=== PATIENT | female | born 1965 | race Caucasian/White ===

== ENCOUNTER → 2017-02-26 | Outpatient (CLI) | payer OTHER ==
[2015-04-02 15:24] VITALS: BP 110/69
--- NOTE | 2017-02-26 15:28 | RAD ---
Chest x-ray Indication: COPD, cough, shortness of breath and chest tightness Technique: PA and lateral views of the chest Comparison: Study from 04/02/2015 Findings: Heart is normal in size. No pericardial or pleural effusion. Lungs are clear. No pneumothorax or pleural effusion. Visualized bony thorax is within normal limits. Impression: No acute cardiopulmonary process.
== END | disposition home or self-care (01) ==
LOC: RAD 14:50
PROVIDERS: ATTEND Physician Assistant
DX: J44.9 Chronic obstructive pulmonary disease, unspecified (principal); J98.4 Other disorders of lung; R06.02 Shortness of breath; R07.89 Other chest pain
CPT/HCPCS: 71020

== ENCOUNTER 2018-04-15 17:57 | Inpatient (IN) | payer OTHER ==
[~2018-04-15] VITALS: Ht 157.5 cm; Wt 87.5 kg
[2018-04-15 18:35] VITALS: BP 122/83
--- NOTE | 2018-04-15 19:14 | HP ---
ADMIT DATE: 04/15/2018 CHIEF COMPLAINT: Abdominal pain and diffuse aching pain. HISTORY OF PRESENT ILLNESS: A 53-year-old white female, has a history of social and panic anxiety disorder and was in [facility] a month ago for abdominal pain. She had an EGD, which showed H. pylori and has been treated with pantoprazole, amoxicillin and Biaxin without any benefit. She was seen by me in the office about 2 weeks ago. A gallbladder sonogram was done, which was unremarkable. She has had increasing abdominal pain and diffuse aching pain in the upper body and trunk of an unknown etiology over many months. Because of her increasingly severe symptoms and uncertain diagnosis, she was admitted for further evaluation. CURRENT MEDICATIONS: Citalopram, lorazepam and pantoprazole with Advair and DuoNeb for COPD symptoms. PAST SURGICAL HISTORY: She has had a radical left nephrectomy for renal cell cancer 2 years ago with cure. No other surgeries known. ALLERGIES: SHE HAS NO KNOWN DRUG ALLERGIES EXCEPT ONE INTOLERANCE TO LYRICA THAT WAS TRIED ONCE IN THE PAST. SOCIAL HISTORY: She is a pack a day smoker, has smoked for most of her adult life. She is a nondrinker. She is . She is not employed. FAMILY HISTORY: Unremarkable. REVIEW OF SYSTEMS: No other specific complaints. OBJECTIVE: ENT: All within normal limits. NECK: No masses, nodes or thyroid enlargement. LUNGS: Coarse inspiratory crackles and expiratory wheezing. No tachypnea. CARDIOVASCULAR: Regular rate. No tachycardia or murmur. ABDOMEN: Soft, benign. Mildly tender in the right upper quadrant. EXTREMITIES: She is diffusely tender over upper extremities, mainly the proximal muscles, but no specific joint abnormalities or skin lesions are noted. NEUROLOGIC: Nonfocal, oriented x 4. Cerebellar reflexes and sensorimotor intact. GENITOURINARY: Deferred. RECTAL: Deferred. ASSESSMENT: 1. Chronic recurrent abdominal pain. She has been treated for H. pylori without clinical benefit. Gallbladder sonogram normal. 2. Diffuse myalgias and arthralgias, etiology unclear. Possibilities include severe fibromyalgia, even polymyalgia rheumatica, which would be unusual at her age, but high sed rate is the only abnormal lab. ALDEN, RA, CPK all negative. 3. Chronic panic disorder and social phobia. 4. Chronic obstructive pulmonary disease with chronic tobacco abuse. PLAN: Labs as ordered, hepatobiliary scan next. Repeat sed rate and CRP. Consider a trial of low dose prednisone to see if it clinically benefits her as it would with PMR, but hesitate to add steroids in this patient. Also, consider use of gabapentin and Cymbalta, but will assess clinically and labs first. JACKI RAMON MD DR: NAHUN/maame JOB#: [id number] / [id number]
[2018-04-15 19:49] LABS: BASO # 0.1 x10^3/uL (0.0-0.2); BASO % 1 % (0-3); EOS # 0.1 x10^3/uL (0.0-0.7); EOS % 1 % (0-3); HEMATOCRIT 47.2 % (36.0-47.0); HEMOGLOBIN 16.9 g/dL (12.0-15.5); LYMPH # 1.7 x10^3/uL (1.0-4.8); LYMPH % 16 % (24-48); MEAN CORPUSCULAR HEMOGLOBIN 32 pg (25-35); MEAN CORPUSCULAR HGB CONC 36 g/dL (31-37); MEAN CORPUSCULAR VOLUME 90 fL (79-100); MONO # 0.6 x10^3/uL (0.0-1.1); MONO % 5 % (0-9); NEUT # 8.1 x10^3uL (1.8-7.7); NEUT % 77 % (31-73); PLATELET COUNT 284 x10^3/uL (140-400); RED BLOOD COUNT 5.27 x10^6/uL (3.50-5.40); RED CELL DISTRIBUTION WIDTH 14.1 % (11.5-14.5); WHITE BLOOD COUNT 10.5 x10^3/uL (4.0-11.0)
[2018-04-15] MEDS: BUDESONIDE 0.5 MG/2 ML NEBU. NEB SCH (19:49)
[2018-04-15] MEDS: IPRATRPIUM/ALBUTEROL 0.5/2.5MG 3 ML NEBU. NEB SCH (19:49)
[2018-04-15 20:05] LABS: ALBUMIN 3.6 g/dL (3.4-5.0); ALBUMIN/GLOBULIN RATIO 0.7 (1.0-1.7); C-REACTIVE PROTEIN 35.1 mg/L (0-3.3); CALCIUM 9.7 mg/dL (8.5-10.1); CREATININE 0.8 mg/dL (0.6-1.0); POTASSIUM 4.1 mmol/L (3.5-5.1); TOTAL BILIRUBIN 0.3 mg/dL (0.2-1.0); TOTAL PROTEIN 8.5 g/dL (6.4-8.2)
--- NOTE | 2018-04-15 20:12 | NUR ---
Pt.came around 1800 as a direct admit. She is A/O x4 and will make needs known. Family @ [facility]
[2018-04-15] MEDS ORDERED: GABAPENTIN 100 MG CAPSULE. PO PRN (20:15)
[2018-04-15] MEDS: LORazepam 1 MG TABLET PO SCH (21:17)
[2018-04-15] MEDS: NICOTINE 21MG PATCH. TD SCH (21:17)
[2018-04-15] MEDS: IV DEXTROSE 5%-LACT RINGERS 1,000 ML IV SCH (21:20)
[2018-04-15 23:30] VITALS: BP 121/77
[2018-04-16 03:21] VITALS: BP 102/51
[2018-04-16] MEDS: HYDROcodone/APAP 5/325MG 1 TAB TABLET PO PRN ×3 (04:13→20:06)
[2018-04-16] MEDS: IV DEXTROSE 5%-LACT RINGERS 1,000 ML IV SCH ×2 (04:18→20:05)
[2018-04-16 07:00] VITALS: BP 106/70
[2018-04-16] MEDS: IPRATRPIUM/ALBUTEROL 0.5/2.5MG 3 ML NEBU. NEB SCH ×4 (07:32→19:24)
[2018-04-16] MEDS: BUDESONIDE 0.5 MG/2 ML NEBU. NEB SCH ×2 (07:32→19:24)
[2018-04-16 07:35] LABS: BILIRUBIN,URINE NEGATIVE (NEG); CLARITY,URINE CLEAR; COLOR,URINE YELLOW; NITRITE,URINE NEGATIVE (NEG); PROTEIN,URINE 30 mg/dL (NEG-TRACE); UROBILINOGEN,URINE 0.2 mg/dL (0.2 mg/dL)
[2018-04-16 07:39] LABS: SQUAMOUS EPITHELIAL CELL,UR MOD /LPF
--- NOTE | 2018-04-16 07:45 | RAD ---
Chest, 2 views, 04/15/2018: HISTORY: Sore throat and cough Comparison is made to a study from 02/26/2017. The heart size and pulmonary vascularity are normal. No pulmonary infiltrate is seen. There is no evidence of pleural fluid. IMPRESSION: No acute cardiopulmonary abnormality is detected. Electronically signed by: Kentrell Foreman MD (04/16/2018 7:40 AM) [facility]
[2018-04-16 07:46] LABS: AMORPHOUS SEDIMENT,UR PRESENT /HPF; BACTERIA,URINE FEW /HPF (0-FEW)
[2018-04-16] MEDS ORDERED: NORMAL SALINE IV ONE (08:30)
[2018-04-16] MEDS ORDERED: SINCALIDE IV ONE (08:30)
--- NOTE | 2018-04-16 08:30 | PDOC ---
Provider Note Provider Note OUT OF ROOM FOR HB SCAN- LABS SHOW HIGH ESR/CRP, ELEVATED GLOBULIN- PRIOR ALDEN/ TSH/CK ALL NORMAL- CXR CLEAR - POSSIBILITIES INCLUDE FIBROMYALGIA, BUT HIGH SED RATE RAISE ? OF PMR, MM, OTHERS- WILL GIVE TRIAL OF LOW DOSE PREDNIISONE, TRY ASHISH, MORE LABS , supportive care , norco re pain,cough- consider bone scan re prior renal cell CA that was resected at [facility], current scan may delay that idea- JACKI RAMON MD Apr 16, 2018 08:30
[2018-04-16] MEDS ORDERED: NICOTINE 21MG PATCH. TD SCH (09:00)
[2018-04-16] MEDS ORDERED: GABAPENTIN 300 MG CAPSULE. PO PRN (09:00)
[2018-04-16] MEDS: LORazepam 1 MG TABLET PO SCH ×3 (09:43→20:06)
[2018-04-16] MEDS: NICOTINE 21MG PATCH. TD SCH (09:43)
[2018-04-16] MEDS: CITALOPRAM 20 MG TABLET. PO SCH (09:43)
[2018-04-16] MEDS: PANTOPRAZOLE 40 MG TABLET.DR. PO SCH (09:43)
[2018-04-16] MEDS: predniSONE 20 MG TABLET PO SCH (09:45)
--- NOTE | 2018-04-16 10:30 | RAD ---
Hepatobiliary scan with gallbladder ejection fraction calculation 04/16/2018 Clinical History: Right upper quadrant abdominal pain. Technique: After the intravenous administration of 5.4 mCi of technetium 99m Choletec, imaging of the right upper quadrant of the abdomen was performed using the gamma camera for 60 minutes. 1.76 mcg of CCK was infused intravenously and continued imaging of the right upper quadrant of the abdomen was performed for 30 minutes. A gallbladder ejection fraction was calculated. Findings: Normal perfusion, uptake and excretion of the radionuclide by the liver is seen. There is no evidence of cystic or common bile duct obstruction. The gallbladder is within normal limits in position and configuration. During the infusion of CCK minimal emptying of the gallbladder is seen on the static images. The gallbladder ejection fraction is 6% which is markedly diminished. These findings are consistent with biliary dyskinesia. IMPRESSION: Findings consistent with biliary dyskinesia. Electronically signed by: Reese Simmons MD (04/16/2018 10:26 AM) [id number]
[2018-04-16 11:00] VITALS: BP 124/81
[2018-04-16 15:00] VITALS: BP 132/77
--- NOTE | 2018-04-16 15:37 | NUR ---
SW following for discharge planning. Discussed with RN, RN advised pt is from home alone and does fine at home. RN advised no SW needs at this time. SW will continue to follow.
[2018-04-16 19:00] VITALS: BP 107/63
[2018-04-16 23:00] VITALS: BP 99/46
[2018-04-17] VITALS (7 sets, daily range): BP systolic 116–157; BP diastolic 51–82
[2018-04-17] MEDS: IV DEXTROSE 5%-LACT RINGERS 1,000 ML IV SCH ×3 (00:45→20:04)
[2018-04-17] MEDS: IPRATRPIUM/ALBUTEROL 0.5/2.5MG 3 ML NEBU. NEB SCH ×4 (07:35→20:48)
[2018-04-17] MEDS: BUDESONIDE 0.5 MG/2 ML NEBU. NEB SCH ×2 (07:36→20:48)
[2018-04-17] MEDS: PANTOPRAZOLE 40 MG TABLET.DR. PO SCH (08:04)
[2018-04-17] MEDS: CITALOPRAM 20 MG TABLET. PO SCH (08:04)
[2018-04-17] MEDS: LORazepam 1 MG TABLET PO SCH ×3 (08:04→20:04)
[2018-04-17] MEDS: HYDROcodone/APAP 5/325MG 1 TAB TABLET PO PRN ×3 (08:04→20:05)
[2018-04-17] MEDS: predniSONE 20 MG TABLET PO SCH (08:04)
[2018-04-17] MEDS: NICOTINE 21MG PATCH. TD SCH (08:05)
--- NOTE | 2018-04-17 08:54 | PDOC ---
Provider Note Provider Note vss, no temp- feels same, no new sxs- hb scan shows poor EF so surg consult re anthony- RA, florentino, ck wnl- d/w her ? of PMR but unusual at her age- trial of low dose pred in progress- will add levoflox re cough/wheeze to duoneb/pulmicort in advance of surgery- JACKI RAMON MD Apr 17, 2018 08:54
--- NOTE | 2018-04-17 10:43 | PDOC2 ---
CONSULT Date of Consult Date of Consult DATE: 04/17/18 TIME: 10:35 Reason for Consult Reason for Consult: Biliary dyskinesia Referring Physician Referring Physician: Lg Identification/Chief Complaint Chief Complaint RUQ pain Source Source: Chart review, Patient History of Present Illness Reason for Visit: 53 yo F with c/o RUQ pain radiating to Right shoulder. Recently admitted to and treated for H. pylori, without significant improvement. She presents with diffuse body aches in addition to the RUQ pain. Notes pain is worse after eating. She is being worked up for elevated CRP. Past Medical History Pulmonary: COPD Rheumatologic: Other Past Surgical History Past Surgical History: Other (left nephrectomy for cancer) Family History Family History: No Significant Social History 1 pack per day ALCOHOL: social Current Medications Current Medications Current Medications Dextrose/Lactated Ringer's 1,000 ml @ 100 mls/hr Q10H IV Last administered on 04/17/18at 08:05; Start 04/15/18 at 18:45 Citalopram Hydrobromide (CeleXA) 20 mg DAILY PO Last administered on 04/17/18at 08:04; Start 04/16/18 at 09:00 Lorazepam (Ativan) 1 mg BID92 PO Last administered on 04/17/18at 08:04; Start at 09:00 Lorazepam (Ativan) 2 mg HS PO Last administered on 04/16/18at 20:06; Start 04/15 at 21:00 Pantoprazole Sodium (Protonix) 40 mg DAILYAC PO Last administered on 04/17/18at 08:04; Start 04/16/18 at 07:30 Nicotine (Nicoderm Cq 21mg) 1 patch DAILY TD ; Start 04/16/18 at 09:00; Stop at 09:00; Status DC Budesonide (Pulmicort) 0.5 mg RTBID NEB Last administered on 04/17/18at 07:36; Start 04/15/18 at 20:00 Albuterol/ Ipratropium (Duoneb) 3 ml RTQID NEB Last administered on 04/17/18at 07:35; Start 04/15/18 at 20:00 Gabapentin (Neurontin) 200 mg PRN Q8HRS PRN PO PAIN Last administered on at 21:17; Start 04/15/18 at 20:15; Stop 04/16/18 at 08:27; Status DC Nicotine (Nicoderm Cq 21mg) 1 patch DAILY TD Last administered on 04/17/18at 08: 05; Start 04/15/18 at 20:30 Acetaminophen/ Hydrocodone Bitart (Lortab 5/325) 1 tab PRN QID PRN PO PAIN Last administered on 04/17/18at 08:04; Start 04/16/18 at 04:00 Sincalide 1.76 mcg/Sodium Chloride 30 ml @ 120 mls/hr 1X ONCE IV Last administered on 04/16/18at 09:30; Start 04/16/18 at 08:30; Stop 04/16/18 at 08:44 ; Status DC Gabapentin (Neurontin) 300 mg PRN Q8HRS PRN PO FOR PERIPHERAL PAIN; Start 04/16 at 09:00 Prednisone (Prednisone) 20 mg DAILY PO Last administered on 04/17/18at 08:04; Start 04/16/18 at 09:00 Levofloxacin (Levaquin) 500 mg DAILY06 PO Last administered on 04/17/18at 10:35 ; Start 04/17/18 at 10:00 Allergies Allergies: Coded Allergies: No Known Drug Allergies (Unverified , 04/02/15) ROS General: YES: Appetite PSYCHOLOGICAL ROS: YES: Anxiety Respiratory: YES: SOB with excertion Gastrointestinal: Yes Abdominal Pain Musculoskeletal: Yes Pain In: (diffusely) Physical Exam General: Alert, Oriented X3, Cooperative, mild distress, Other (obese) HEENT: Atraumatic, EOMI Lungs: Normal air movement Abdomen: Soft, Other (TTP RUQ) Extremities: No clubbing, No cyanosis Skin: No rashes, No breakdown Neuro: Normal speech, Sensation intact Psych/Mental Status: Mental status NL, Mood NL Vitals VITALS Vital Signs Date Time Temp Pulse Resp B/P (MAP) Pulse Ox O2 Delivery O2 Flow Rate FiO2 04/17/18 08:04 Room Air 04/17/18 07:37 96 04/17/18 03:00 97.5 91 119/67 (84) 97.5 04/16/18 23:00 18 Labs Labs Laboratory Tests Test 04/15/18 19:40 04/15/18 21:19 04/16/18 10:15 White Blood Count 10.5 x10^3/uL (4.0-11.0) Red Blood Count 5.27 x10^6/uL (3.50-5.40) Hemoglobin 16.9 g/dL (12.0-15.5) Hematocrit 47.2 % (36.0-47.0) Mean Corpuscular Volume 90 fL (79-100) Mean Corpuscular Hemoglobin 32 pg (25-35) Mean Corpuscular Hemoglobin Concent 36 g/dL (31-37) Red Cell Distribution Width 14.1 % (11.5-14.5) Platelet Count 284 x10^3/uL (140-400) Neutrophils (%) (Auto) 77 % (31-73) Lymphocytes (%) (Auto) 16 % (24-48) Monocytes (%) (Auto) 5 % (0-9) Eosinophils (%) (Auto) 1 % (0-3) Basophils (%) (Auto) 1 % (0-3) Neutrophils # (Auto) 8.1 x10^3uL (1.8-7.7) Lymphocytes # (Auto) 1.7 x10^3/uL (1.0-4.8) Monocytes # (Auto) 0.6 x10^3/uL (0.0-1.1) Eosinophils # (Auto) 0.1 x10^3/uL (0.0-0.7) Basophils # (Auto) 0.1 x10^3/uL (0.0-0.2) Erythrocyte Sedimentation Rate 75 (0-25) Sodium Level 139 mmol/L (136-145) Potassium Level 4.1 mmol/L (3.5-5.1) Chloride Level 100 mmol/L (98-107) Carbon Dioxide Level 28 mmol/L (21-32) Anion Gap 11 (6-14) Blood Urea Nitrogen 8 mg/dL (7-20) Creatinine 0.8 mg/dL (0.6-1.0) Estimated GFR (Cockcroft-Gault) 75.0 BUN/Creatinine Ratio 10 (6-20) Glucose Level 96 mg/dL (70-99) Calcium Level 9.7 mg/dL (8.5-10.1) Total Bilirubin 0.3 mg/dL (0.2-1.0) Aspartate Amino Transf (AST/SGOT) 30 U/L (15-37) Alanine Aminotransferase (ALT/SGPT) 41 U/L (14-59) Alkaline Phosphatase 116 U/L (46-116) C-Reactive Protein, Quantitative 35.1 mg/L (0-3.3) Total Protein 8.5 g/dL (6.4-8.2) Albumin 3.6 g/dL (3.4-5.0) Albumin/Globulin Ratio 0.7 (1.0-1.7) Urine Collection Type Unknown Urine Color Yellow Urine Clarity Clear Urine pH 6.0 Urine Specific [place] 1.020 Urine Protein 30 mg/dL (NEG-TRACE) Urine Glucose (UA) Negative mg/dL (NEG) Urine Ketones (Stick) Negative mg/dL (NEG) Urine Blood Moderate (NEG) Urine Nitrite Negative (NEG) Urine Bilirubin Negative (NEG) Urine Urobilinogen Dipstick 0.2 mg/dL (0.2 mg/dL) Urine Leukocyte Esterase Negative (NEG) Urine RBC 3-5 /HPF (0-2) Urine WBC 1-4 /HPF (0-4) Urine Squamous Epithelial Cells Mod /LPF Urine Amorphous Sediment Present /HPF Urine Bacteria Few /HPF (0-FEW) Uric Acid 5.5 mg/dL (2.6-6.0) Creatine Kinase 96 U/L (26-192) Rheumatoid Factor 10.8 IU/mL (0.0-13.9) Images Images US reportedly normal, she reports imaging at demonstrated benign liver tumors , PIPPDA with ejection fraction of 6% Assessment/Plan Assessment/Plan Biliary dyskinesia her symptoms are c/w her PIPPDA scan. will check US to evaluate liver tumors. agree with w/u and treatment of elevated CRP agree with maximizing pulm status (smoking cessation and weight loss encouraged) pulm consult for preop evaluation plan laparoscopic cholecystectomy with cholangiogram pending maximization. Thanks for consult! OWEN MESA MD Apr 17, 2018 10:43
--- NOTE | 2018-04-17 11:46 | NUR ---
SW following for discharge planning. Discussed with RN, RN advised no SW needs at this time. SW will continue to follow.
--- NOTE | 2018-04-17 12:31 | PDOC ---
PULMONARY PROGRESS NOTES Vitals Vital Signs Date Time Temp Pulse Resp B/P (MAP) Pulse Ox O2 Delivery O2 Flow Rate FiO2 04/17/18 11:15 Room Air 04/17/18 11:00 97.3 93 18 122/68 (86) 95 97.3 Labs Laboratory Tests Test 04/15/18 19:40 04/15/18 21:19 04/16/18 10:15 White Blood Count 10.5 x10^3/uL (4.0-11.0) Red Blood Count 5.27 x10^6/uL (3.50-5.40) Hemoglobin 16.9 g/dL (12.0-15.5) Hematocrit 47.2 % (36.0-47.0) Mean Corpuscular Volume 90 fL (79-100) Mean Corpuscular Hemoglobin 32 pg (25-35) Mean Corpuscular Hemoglobin Concent 36 g/dL (31-37) Red Cell Distribution Width 14.1 % (11.5-14.5) Platelet Count 284 x10^3/uL (140-400) Neutrophils (%) (Auto) 77 % (31-73) Lymphocytes (%) (Auto) 16 % (24-48) Monocytes (%) (Auto) 5 % (0-9) Eosinophils (%) (Auto) 1 % (0-3) Basophils (%) (Auto) 1 % (0-3) Neutrophils # (Auto) 8.1 x10^3uL (1.8-7.7) Lymphocytes # (Auto) 1.7 x10^3/uL (1.0-4.8) Monocytes # (Auto) 0.6 x10^3/uL (0.0-1.1) Eosinophils # (Auto) 0.1 x10^3/uL (0.0-0.7) Basophils # (Auto) 0.1 x10^3/uL (0.0-0.2) Erythrocyte Sedimentation Rate 75 (0-25) Sodium Level 139 mmol/L (136-145) Potassium Level 4.1 mmol/L (3.5-5.1) Chloride Level 100 mmol/L (98-107) Carbon Dioxide Level 28 mmol/L (21-32) Anion Gap 11 (6-14) Blood Urea Nitrogen 8 mg/dL (7-20) Creatinine 0.8 mg/dL (0.6-1.0) Estimated GFR (Cockcroft-Gault) 75.0 BUN/Creatinine Ratio 10 (6-20) Glucose Level 96 mg/dL (70-99) Calcium Level 9.7 mg/dL (8.5-10.1) Total Bilirubin 0.3 mg/dL (0.2-1.0) Aspartate Amino Transf (AST/SGOT) 30 U/L (15-37) Alanine Aminotransferase (ALT/SGPT) 41 U/L (14-59) Alkaline Phosphatase 116 U/L (46-116) C-Reactive Protein, Quantitative 35.1 mg/L (0-3.3) Total Protein 8.5 g/dL (6.4-8.2) Albumin 3.6 g/dL (3.4-5.0) Albumin/Globulin Ratio 0.7 (1.0-1.7) Urine Collection Type Unknown Urine Color Yellow Urine Clarity Clear Urine pH 6.0 Urine Specific [place] 1.020 Urine Protein 30 mg/dL (NEG-TRACE) Urine Glucose (UA) Negative mg/dL (NEG) Urine Ketones (Stick) Negative mg/dL (NEG) Urine Blood Moderate (NEG) Urine Nitrite Negative (NEG) Urine Bilirubin Negative (NEG) Urine Urobilinogen Dipstick 0.2 mg/dL (0.2 mg/dL) Urine Leukocyte Esterase Negative (NEG) Urine RBC 3-5 /HPF (0-2) Urine WBC 1-4 /HPF (0-4) Urine Squamous Epithelial Cells Mod /LPF Urine Amorphous Sediment Present /HPF Urine Bacteria Few /HPF (0-FEW) Uric Acid 5.5 mg/dL (2.6-6.0) Creatine Kinase 96 U/L (26-192) Rheumatoid Factor 10.8 IU/mL (0.0-13.9) Impression . FULL NOTE DICTATED AECOPD OK TO PROCEED WITH SURGERY THANKS DRAKE MON MD Apr 17, 2018 12:31
--- NOTE | 2018-04-17 12:38 | RAD ---
Abdominal ultrasound, 04/17/2018: HISTORY: Abdominal pain, biliary dyskinesia The gallbladder is within normal limits in size. There is no sonographic evidence of cholelithiasis. The gallbladder wall is not thickened. The common hepatic duct measures 5-6 mm which is at the upper limits of normal. No intrahepatic bile duct dilatation is seen. The liver demonstrates increased echogenicity suggesting fatty change. There is a 2.2 cm hypoechoic lesion evident in the left lobe of the liver. No other hepatic abnormality is seen. The pancreas and central retroperitoneum including the majority of the aorta and inferior vena cava were obscured by overlying bowel. The spleen is of normal size. No renal abnormality is detected. No free fluid is evident in the abdomen. IMPRESSION: 1. Increased hepatic echogenicity compatible with hepatic steatosis. 2. Small nonspecific nodule in the left lobe of the liver. 3. Obscuration of the pancreas and central retroperitoneum due to overlying bowel. 4. CT scanning of the abdomen to include multiphase scanning through the liver is suggested for further evaluation, if clinically indicated. Electronically signed by: Kentrell Foreman MD (04/17/2018 12:33 PM) [facility]
--- NOTE | 2018-04-17 12:44 | CONS ---
DATE OF CONSULTATION: 04/17/2018 ATTENDING PHYSICIAN: Dr. Jamin Castanon. REASON FOR CONSULTATION: The patient seen in pulmonary consultation at the request of Dr. Mcfarland for preop evaluation. HISTORY OF PRESENT ILLNESS: The patient presents with abdominal pain. Ultrasound was reportedly normal. She had a PIPIDA scan with ejection fraction of 6%. She is scheduled to undergo possible surgical intervention, laparoscopic cholecystectomy with cholangiogram pending. The patient has underlying history of COPD. She smokes. She smoked right up until the day of admission. She experiences one acute exacerbation of COPD per year. At home, she was on Advair, DuoNeb. She denies hemoptysis. She is currently wheezing, cough, mostly not productive. Apparently, she experienced a viral infection prior to admission. PAST MEDICAL HISTORY: COPD, tobacco dependent; anxiety, panic disorder. PAST SURGICAL HISTORY: Status post radical left nephrectomy for renal cell cancer 2 years ago. No prior surgical intervention. ALLERGIES: INTOLERANT TO Lyrica. SOCIAL HISTORY: She smokes a pack of cigarettes a day. No history of alcoholism. FAMILY HISTORY: No history of asthma. No lung disorders. REVIEW OF SYSTEMS: As indicated above, otherwise, a 10-point system was reviewed and negative. PHYSICAL EXAMINATION: GENERAL: The patient was in no respiratory distress. VITAL SIGNS: Stable. She is currently on room air saturation 94-95%. HEENT: Eyes, the sclerae were nonicteric. NECK: Jugular venous distention was not elevated. No lymphadenopathy. CHEST: Full expansion. LUNGS: Coarse breath sounds with mild expiratory wheeze. CARDIOVASCULAR: Regular rate and rhythm with S1, S2, no S3. ABDOMEN: Soft, nontender, nondistended. EXTREMITIES: No clubbing, cyanosis or edema. NEUROLOGIC: The patient was awake, alert. Detailed neuro exam was not performed. LABORATORY DATA: White count was normal. Hemoglobin and hematocrit were noted. Electrolytes were noted. BUN and creatinine normal. UA was noted. Rheumatoid factor was 10.8. Chest x-ray reviewed, no acute cardiopulmonary process. IMPRESSION: 1. Chronic obstructive pulmonary disease, suspect mild to moderate. 2. Tobacco dependent. 3. Mild acute exacerbation of chronic obstructive pulmonary disease. 4. Abdominal pain secondary to cholecystitis. The patient currently plan to undergo laparoscopic cholecystectomy. 5. Panic disorder. 6. Anxiety. PLAN: 1. Respiratory status appears to be compensated enough to undergo surgical intervention. 2. I have reviewed the possible postop complications including bronchitis, pneumonia and further respiratory distress requiring support. 3. Follow Dr. Mcfarland's input. 4. Continue home meds. 5. Nebulized treatments. 6. DVT prophylaxis. I do appreciate the privilege in sharing in the patient's care. DRAKE MON MD DR: YOBANI/maame JOB#: [id number] / [id number]
[2018-04-17] MEDS: methylPREDNISolone SOD SUCC PF 125 MG/2 ML VIAL. IV SCH ×2 (13:28→21:25)
[2018-04-17 14:40] LABS: KAPPA FREE 21.5 mg/L (3.3-19.4); KAPPA LAMBDA RATIO 1.17 (0.26-1.65); LAMBDA FREE 18.4 mg/L (5.7-26.3)
[2018-04-17] MEDS ORDERED: ENOXAPARIN 40 MG/0.4 ML SYRINGE. SQ SCH (15:00)
--- NOTE | 2018-04-17 17:52 | NUR ---
Patient moved to [address] [place] [address]. This RN gave report to Gissel MARCOS, all questions/concerns answered. Patient settled in with family and hooked back up to IV fluids.
--- NOTE | 2018-04-17 17:53 | NUR ---
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
[2018-04-17] MEDS: LACTOBACILLUS RHAMNOSUS GG 1 CAPSULE. PO SCH (20:06)
[2018-04-18 03:00] VITALS: BP 116/72
[2018-04-18] MEDS: IV DEXTROSE 5%-LACT RINGERS 1,000 ML IV SCH ×2 (05:48→18:00)
[2018-04-18] MEDS: methylPREDNISolone SOD SUCC PF 125 MG/2 ML VIAL. IV SCH ×3 (05:48→22:08)
[2018-04-18] MEDS: HYDROcodone/APAP 5/325MG 1 TAB TABLET PO PRN ×3 (05:48→19:56)
[2018-04-18 07:00] VITALS: BP 126/68
[2018-04-18] MEDS: IPRATRPIUM/ALBUTEROL 0.5/2.5MG 3 ML NEBU. NEB SCH ×4 (07:10→20:30)
[2018-04-18] MEDS: BUDESONIDE 0.5 MG/2 ML NEBU. NEB SCH ×2 (07:10→20:30)
--- NOTE | 2018-04-18 08:30 | PDOC ---
Provider Note Provider Note no temp, vss- exam same, less wheeze- ok for lap anthony, note spe looks benign JACKI RAMON MD Apr 18, 2018 08:30
--- NOTE | 2018-04-18 08:57 | PDOC ---
PULMONARY PROGRESS NOTES Subjective PT NOT MORE SOA Vitals Vital Signs Date Time Temp Pulse Resp B/P (MAP) Pulse Ox O2 Delivery O2 Flow Rate FiO2 04/18/18 07:13 92 Room Air 04/18/18 07:00 97.8 78 18 126/68 (87) 97.8 ROS: No Nausea, No Chest Pain, No Increase Cough General: Alert Lungs: Clear Cardiovascular: S1, S2 Abdomen: Soft Neuro Exam: Alert Extremities: No Edema Skin: Warm Labs Laboratory Tests Test 04/16/18 10:15 Uric Acid 5.5 mg/dL (2.6-6.0) Creatine Kinase 96 U/L (26-192) Immunoglobulin Platinum/Lambda Ratio 1.17 (0.26-1.65) Rheumatoid Factor 10.8 IU/mL (0.0-13.9) Free Platinum Light Chains 21.5 mg/L (3.3-19.4) Free Lambda Light Chains 18.4 mg/L (5.7-26.3) Impression . IMPRESSION: 1. Chronic obstructive pulmonary disease, suspect mild to moderate. 2. Tobacco dependent. 3. Mild acute exacerbation of chronic obstructive pulmonary disease. 4. Abdominal pain secondary to cholecystitis. The patient currently plan to undergo laparoscopic cholecystectomy. 5. Panic disorder. 6. Anxiety. Plan . OR ON 04/19 WILL CONTINUE THE SAME D/W AT BEDSIDE 1. Respiratory status appears to be compensated enough to undergo surgical intervention. 2. I have reviewed the possible postop complications including bronchitis, pneumonia and further respiratory distress requiring support. 3. Follow Dr. Mcfarland's input. 4. Continue home meds. 5. Nebulized treatments. 6. DVT prophylaxis. DRAKE MON MD Apr 18, 2018 08:57
[2018-04-18] MEDS: LACTOBACILLUS RHAMNOSUS GG 1 CAPSULE. PO SCH ×2 (10:15→20:22)
[2018-04-18] MEDS: CITALOPRAM 20 MG TABLET. PO SCH (10:15)
[2018-04-18] MEDS: LORazepam 1 MG TABLET PO SCH ×3 (10:15→20:22)
[2018-04-18] MEDS: PANTOPRAZOLE 40 MG TABLET.DR. PO SCH (10:16)
[2018-04-18] MEDS: NICOTINE 21MG PATCH. TD SCH (10:16)
[2018-04-18 11:00] VITALS: BP 116/58
--- NOTE | 2018-04-18 12:01 | PDOC ---
SURGICAL PROGRESS NOTE Subjective Pt with c/o mild wheeze but feels breathing is improved, bhavya clears, feels arms and legs heavy secondary to auto immune issue, mild abd pain Vital Signs Vital Signs Date Time Temp Pulse Resp B/P (MAP) Pulse Ox O2 Delivery O2 Flow Rate FiO2 04/18/18 11:34 97 Room Air 04/18/18 11:20 18 04/18/18 11:00 98.0 80 116/58 (77) 98.0 I&O Intake and Output 04/18/18 07:01 Intake Total 960 ml Output Total 700 ml Balance 260 ml Intake Oral 960 ml Output Urine Total 700 ml # Voids 3 General: Alert, Oriented X3, Cooperative, mild distress Abdomen: Soft, Other (mild TTP RUQ) I have reviewed the following US with min small hepatic cyst Problem List Biliary dyskinesia will hold anticoagulants, clears today, NPO pending MN TO OR 04/19 1130 for laparoscopic cholecystectomy with cholangiogram R/R/B/A d/w pt. Risks, including, but not limited to: bleeding, infection, damage to surrounding structures, risk of anesthesia, risk of open. Smoking cessation strongly encouraged and she is at increased risk of perioperative pulm complications. She appears to understand, her questions are answered and she agrees to proceed. OWEN MESA MD Apr 18, 2018 12:01
[2018-04-18 15:00] VITALS: BP 109/68
[2018-04-18 17:22] LABS: ANA INTERP Negative (.)
[2018-04-18 18:18] LABS: ALBUM 3.2 g/dL (2.9-4.4); ALPHA 1 0.2 g/dL (0.0-0.4); ALPHA 2 1.1 g/dL (0.4-1.0); BETA 1.1 g/dL (0.7-1.3); GAMMA 0.8 g/dL (0.4-1.8); PROTEIN TOTAL 6.5 g/dL (6.0-8.5)
[2018-04-18 19:00] VITALS: BP 126/54
[2018-04-18 23:00] VITALS: BP 112/53
[2018-04-19 03:02] VITALS: BP 144/81
[2018-04-19] MEDS: HYDROcodone/APAP 5/325MG 1 TAB TABLET PO PRN (03:15)
[2018-04-19] MEDS: IV DEXTROSE 5%-LACT RINGERS 1,000 ML IV SCH ×2 (03:17→09:09)
[2018-04-19] MEDS: methylPREDNISolone SOD SUCC PF 125 MG/2 ML VIAL. IV SCH ×3 (05:27→20:04)
[2018-04-19 07:00] VITALS: BP 120/72
[2018-04-19] MEDS ORDERED: MORPHINE SULFATE 4 MG/ML VIAL. IV PRN (07:00)
[2018-04-19] MEDS ORDERED: HYDROmorphone 2 MG/ML VIAL IV PRN (07:00)
[2018-04-19] MEDS ORDERED: fentaNYL PF VIAL 100 MCG/2 ML VIAL IV PRN (07:00)
[2018-04-19] MEDS ORDERED: LIDOCAINE 1% PF 2 ML VIAL. ID PRN (07:00)
[2018-04-19] MEDS ORDERED: IV RINGERS,LACTATED 1000ML 1,000 ML IV SCH (07:00)
[2018-04-19] MEDS: IPRATRPIUM/ALBUTEROL 0.5/2.5MG 3 ML NEBU. NEB SCH ×4 (07:16→20:57)
[2018-04-19] MEDS: BUDESONIDE 0.5 MG/2 ML NEBU. NEB SCH ×2 (07:16→20:57)
[2018-04-19] MEDS: PANTOPRAZOLE 40 MG TABLET.DR. PO SCH (07:30)
[2018-04-19] MEDS: NICOTINE 21MG PATCH. TD SCH (09:00)
[2018-04-19] MEDS: LACTOBACILLUS RHAMNOSUS GG 1 CAPSULE. PO SCH ×2 (09:00→20:04)
--- NOTE | 2018-04-19 09:00 | PDOC ---
Provider Note Provider Note no new sxs- exam samwe- not mucj subj difference in pain despite steroids- spe ok so no evidence re MM- for surg today JACKI RAMON MD Apr 19, 2018 09:00
[2018-04-19] MEDS: LORazepam 1 MG TABLET PO SCH ×3 (09:09→20:03)
[2018-04-19] MEDS: CITALOPRAM 20 MG TABLET. PO SCH (09:09)
--- NOTE | 2018-04-19 09:12 | PDOC ---
PULMONARY PROGRESS NOTES Subjective PT NOT MORE SOA Vitals Vital Signs Date Time Temp Pulse Resp B/P (MAP) Pulse Ox O2 Delivery O2 Flow Rate FiO2 04/19/18 07:18 94 Room Air 04/19/18 07:00 98.4 83 16 120/72 (88) 98.4 ROS: No Nausea, No Chest Pain, No Increase Cough General: Alert Lungs: Clear Cardiovascular: S1, S2 Abdomen: Soft Neuro Exam: Alert Extremities: No Edema Skin: Warm Impression . IMPRESSION: 1. Chronic obstructive pulmonary disease, suspect mild to moderate. 2. Tobacco dependent. 3. Mild acute exacerbation of chronic obstructive pulmonary disease. 4. Abdominal pain secondary to cholecystitis. The patient currently plan to undergo laparoscopic cholecystectomy. 5. Panic disorder. 6. Anxiety. Plan . OR ON 04/19 WILL CONTINUE THE SAME D/W AT BEDSIDE 1. Respiratory status appears to be compensated enough to undergo surgical intervention. 2. I have reviewed the possible postop complications including bronchitis, pneumonia and further respiratory distress requiring support. 3. Follow Dr. Mcfarland's input. 4. Continue home meds. 5. Nebulized treatments. 6. DVT prophylaxis. DRAKE MON MD Apr 19, 2018 09:12
[2018-04-19] MEDS ORDERED: LIDOCAINE 2% PF 5 ML VIAL. ONE ×2 (10:44→11:18)
[2018-04-19] MEDS ORDERED: PROPOFOL 20 ML IV ONE ×2 (10:44→11:18)
[2018-04-19] MEDS ORDERED: ROCURONIUM 50 MG/5 ML VIAL. ONE ×2 (10:44→11:18)
[2018-04-19] MEDS ORDERED: IOHEXOL 300 MG/ML 100ML VIAL. ONE (11:13)
[2018-04-19] MEDS ORDERED: BUPIVAC MPF-EPI 0.5%-1:200000 30 ML VIAL. ONE (11:13)
[2018-04-19] MEDS ORDERED: SURGICEL HEMOSTAT 4X8 EACH. ONE (11:13)
[2018-04-19] MEDS ORDERED: GLUCAGON,HUMAN RECOMBINANT 1 MG/ML VIAL. ONE (11:13)
[2018-04-19] MEDS ORDERED: DEXAMETHASONE SOD PHOS 20 MG/5 ML VIAL. ONE (11:18)
[2018-04-19] MEDS ORDERED: SEVOFLURANE 61 TO 120 MINUTES. IH ONE (11:35)
[2018-04-19] MEDS ORDERED: KETOROLAC 30 MG/ML INJ FOR OR. INJ ONE (12:08)
[2018-04-19] MEDS ORDERED: ONDANSETRON PF 4 MG/2 ML VIAL. ONE (12:08)
[2018-04-19] MEDS ORDERED: NEOSTIGMINE 10 MG/10 ML VIAL. ONE (12:17)
[2018-04-19] MEDS ORDERED: GLYCOPYRROLATE 1 MG/5 ML VIAL. ONE (12:18)
--- NOTE | 2018-04-19 12:30 | RAD ---
Intraoperative cholangiogram, 04/19/2018: HISTORY: Cholecystectomy 3 spot films from surgery are presented for review. Contrast has been injected into the cystic duct remnant. 21 seconds of fluoroscopy time was utilized. There is good flow contrast into the duodenum at the ampulla. No filling defect is seen in the common duct to suggest a retained calculus. The incompletely opacified intrahepatic ducts are unremarkable. No contrast extravasation is seen. IMPRESSION: No significant abnormality is detected. Electronically signed by: Kentrell Foreman MD (04/19/2018 12:26 PM) [facility]
--- NOTE | 2018-04-19 12:47 | PDOC ---
BRIEF OPERATIVE NOTE Date: Apr 19, 2018 Pre-Op Diagnosis biliary dyskinesia Post-Op Diagnosis same Procedure Performed l/s anthony with grams Surgeon Marcelino Anesthesia Type: General Blood Loss 25cc IV Fluid 800cc Specimens Obtained GB Findings supple GB, normal grams Complications none Operative Note Wk # [id number] FABIOLA VELEZ MD Apr 19, 2018 12:47
[2018-04-19] MEDS: fentaNYL PF VIAL 100 MCG/2 ML VIAL IV PRN ×2 (12:49→13:07)
[2018-04-19] MEDS: PROCHLORPERAZINE 10 MG/2 ML VIAL. IV PRN ×2 (12:50→13:22)
--- NOTE | 2018-04-19 12:56 | OP ---
DATE OF SURGERY: 04/19/2018 PREOPERATIVE DIAGNOSIS: Biliary dyskinesia. POSTOPERATIVE DIAGNOSIS: Biliary dyskinesia. PROCEDURE: Laparoscopic cholecystectomy with cholangiogram. SURGEON: Fabiola Velez MD ANESTHESIA: General endotracheal. ESTIMATED BLOOD LOSS: 20. IV FLUID: 800. INDICATIONS: The patient is a 53-year-old with right upper quadrant pain and an ejection fraction on PIPIDA of 6%. She is brought for cholecystectomy. OPERATIVE FINDINGS: The liver was generous, rounded. The gallbladder was supple. Cholangiograms were normal. A few omental adhesions were on the undersurface of the gallbladder. Visual inspection of the remainder of the abdomen failed to reveal obvious abnormalities. DESCRIPTION OF PROCEDURE: The patient was brought to the operating suite, given a general endotracheal anesthetic and the abdomen prepped and draped in usual sterile fashion. A supraumbilical incision was made after infiltrating local anesthetic, and a 5 mm Visiport used to safely gain access into the abdominal cavity. Pneumoperitoneum established. Camera inserted. Inspection carried out with results as noted above. With the table rolled to the left in reverse Trendelenburg, the epigastric, midclavicular and lateral ports were placed under direct vision. The gallbladder was retracted superolaterally and omental adhesions taken down with careful blunt and cautery dissection, taking care to avoid injury of the adjacent bowel. The cystic duct and cystic artery were exposed. The duct was clipped on the gallbladder side. Cholangiograms were made. These were normal. In light of this, the catheter was removed. The cystic duct was clipped x 3 and divided, taking care to avoid injury or compromise of the common duct. The cystic artery was clipped and divided and the gallbladder freed from the bed with cautery dissection and placed in the EndoCatch bag. Good hemostasis was present in the fossa and no evidence of bile leak was seen. Table returned to level. Gallbladder delivered through the epigastric incision. Epigastric incision closed with interrupted 0 Vicryl suture. Intra-abdominal pressure decreased to 6 cm of water. No bleeding from the epigastric closure or from the midclavicular or lateral port sites after their removal. Abdomen decompressed, camera slowly removed. No bleeding seen. Skin incisions closed with subcuticular 4-0 Monocryl. Steri-Strips and sterile dressings applied. The patient awakened from her anesthetic and taken to the recovery room in satisfactory condition. FABIOLA VELEZ MD DR: GUANACO/maame JOB#: [id number] / [id number]
[2018-04-19] MEDS ORDERED: oxyCODONE/APAP 5/325 1 TAB TABLET PO PRN (13:00)
[2018-04-19] MEDS ORDERED: ONDANSETRON PF 4 MG/2 ML VIAL. IV PRN (13:00)
[2018-04-19] MEDS ORDERED: 0.9 % SODIUM CHLORIDE 10 ML DISP.SYRIN. IV PRN (13:00)
[2018-04-19] MEDS ORDERED: diphenhydrAMINE HCL 25 MG CAPSULE PO PRN (13:00)
[2018-04-19] MEDS ORDERED: DEXTROSE 50% 25 GM / 50ML DISP.SYRIN. IV PRN (13:00)
[2018-04-19 14:07] VITALS: BP 142/74
[2018-04-19] MEDS: POTASSIUM CL 20MEQ-0.45% NACL 1,000 ML IV SCH (14:28)
[2018-04-19] MEDS: oxyCODONE/APAP 5/325 1 TAB TABLET PO PRN (15:07)
[2018-04-19 19:00] VITALS: BP_SYST 127; BP_SYST 147; BP_DIAS 67; BP_DIAS 94
[2018-04-19] MEDS: DOCUSATE SODIUM 100 MG CAPSULE. PO SCH (20:03)
[2018-04-19] MEDS: ENOXAPARIN 40 MG/0.4 ML SYRINGE. SQ SCH (20:04)
[2018-04-19 23:00] VITALS: BP 126/68
[2018-04-20 03:00] VITALS: BP_SYST 131; BP_SYST 150; BP_DIAS 57; BP_DIAS 93
[2018-04-20] MEDS: oxyCODONE/APAP 5/325 1 TAB TABLET PO PRN ×5 (03:05→23:49)
[2018-04-20] MEDS: POTASSIUM CL 20MEQ-0.45% NACL 1,000 ML IV SCH ×2 (03:06→14:33)
[2018-04-20] MEDS: methylPREDNISolone SOD SUCC PF 125 MG/2 ML VIAL. IV SCH (06:09)
[2018-04-20 07:30] VITALS: BP 147/71
[2018-04-20] MEDS: DOCUSATE SODIUM 100 MG CAPSULE. PO SCH ×2 (07:47→19:47)
[2018-04-20] MEDS: LACTOBACILLUS RHAMNOSUS GG 1 CAPSULE. PO SCH ×2 (07:48→19:47)
[2018-04-20] MEDS: CITALOPRAM 20 MG TABLET. PO SCH (07:48)
[2018-04-20] MEDS: LORazepam 1 MG TABLET PO SCH ×3 (07:48→19:47)
[2018-04-20] MEDS: PANTOPRAZOLE 40 MG TABLET.DR. PO SCH (07:48)
[2018-04-20] MEDS: NICOTINE 21MG PATCH. TD SCH (07:49)
[2018-04-20] MEDS: IPRATRPIUM/ALBUTEROL 0.5/2.5MG 3 ML NEBU. NEB SCH ×4 (08:12→19:54)
[2018-04-20] MEDS: BUDESONIDE 0.5 MG/2 ML NEBU. NEB SCH ×2 (08:12→19:54)
--- NOTE | 2018-04-20 08:55 | PDOC ---
Provider Note Provider Note drinking ok, vss, less wheezing- all labs ok- will resume po pred re copd- not likely pmr as not much benefit from steroids re pain- will follow sed rate when off steroids, try more zee now re suspected fibromyalgia JACKI RAMON MD Apr 20, 2018 08:55
[2018-04-20] MEDS: predniSONE 20 MG TABLET PO SCH (09:30)
--- NOTE | 2018-04-20 09:48 | PDOC ---
PULMONARY PROGRESS NOTES Subjective sob better, has occ cough, has pain in surgery site, s/p lap choly Vitals Vital Signs Date Time Temp Pulse Resp B/P (MAP) Pulse Ox O2 Delivery O2 Flow Rate FiO2 04/20/18 09:16 Room Air 04/20/18 08:14 99 04/20/18 07:30 97.5 96 17 147/71 (96) 2.0 97.5 ROS: No Nausea, No Chest Pain, No Increase Cough General: Alert HEENT: Other (nc at perrl ) Lungs: Crackles Cardiovascular: S1, S2 Abdomen: Soft, Non-tender Neuro Exam: Alert Extremities: No Edema Skin: Warm Impression . IMPRESSION: 1. Chronic obstructive pulmonary disease, suspect mild to moderate. 2. Tobacco dependent. 3. Mild acute exacerbation of chronic obstructive pulmonary disease. 4. Abdominal pain secondary to cholecystitis. The patient currently plan to undergo laparoscopic cholecystectomy. 5. Panic disorder. 6. Anxiety. Plan . 1. steroid taper 2. IS 3. Follow Dr. Mcfarland's input. 4. Continue home meds. 5. Nebulized treatments. 6. DVT prophylaxis. discussed w ALDEN Madsen MD Apr 20, 2018 09:48
--- NOTE | 2018-04-20 09:59 | PDOC ---
SURGICAL PROGRESS NOTE Subjective resting tolerating diet incisional pain Vital Signs Vital Signs Date Time Temp Pulse Resp B/P (MAP) Pulse Ox O2 Delivery O2 Flow Rate FiO2 04/20/18 09:16 Room Air 04/20/18 08:14 99 04/20/18 07:30 97.5 96 17 147/71 (96) 2.0 97.5 I&O Intake and Output 04/20/18 07:01 Intake Total 1400 ml Output Total 20 ml Balance 1380 ml Intake Oral 600 ml IV Total 800 ml Estimated Blood Loss 20 ml # Voids 2 General: Alert, Oriented X3, Cooperative, No acute distress Abdomen: Soft, Other (lap dressings dry) Assessment/Plan s/p anthony stable surgically BOAZ MAST HYDROMETALLURGICAL ENGINEER Apr 20, 2018 09:58
[2018-04-20 11:31] VITALS: BP 126/73
[2018-04-20 15:18] VITALS: BP 133/67
[2018-04-20 19:25] VITALS: BP 138/65
[2018-04-20] MEDS: ENOXAPARIN 40 MG/0.4 ML SYRINGE. SQ SCH (19:53)
[2018-04-20 23:25] VITALS: BP 139/72
[2018-04-21 03:25] VITALS: BP 123/58
[2018-04-21] MEDS: oxyCODONE/APAP 5/325 1 TAB TABLET PO PRN ×2 (03:27→07:27)
[2018-04-21] MEDS: POTASSIUM CL 20MEQ-0.45% NACL 1,000 ML IV SCH (03:29)
[2018-04-21] MEDS: LORazepam 1 MG TABLET PO SCH (07:26)
[2018-04-21] MEDS: PANTOPRAZOLE 40 MG TABLET.DR. PO SCH (07:26)
[2018-04-21] MEDS: LACTOBACILLUS RHAMNOSUS GG 1 CAPSULE. PO SCH (07:26)
[2018-04-21] MEDS: DOCUSATE SODIUM 100 MG CAPSULE. PO SCH (07:26)
[2018-04-21] MEDS: NICOTINE 21MG PATCH. TD SCH (07:27)
[2018-04-21] MEDS: CITALOPRAM 20 MG TABLET. PO SCH (07:27)
[2018-04-21] MEDS: predniSONE 20 MG TABLET PO SCH (07:27)
[2018-04-21 07:40] VITALS: BP 144/77
[2018-04-21] MEDS: IPRATRPIUM/ALBUTEROL 0.5/2.5MG 3 ML NEBU. NEB SCH (07:50)
[2018-04-21] MEDS: BUDESONIDE 0.5 MG/2 ML NEBU. NEB SCH (07:50)
--- NOTE | 2018-04-21 08:57 | DISCH ---
DISCHARGE INSTRUCTIONS Condition on Discharge Condition on Discharge: Stable Activity After Discharge Activity Instructions for Disc: Activity as tolerated Diet after Discharge Diet after Discharge: Regular Follow-Up Follow up with: dr monroy 4 w, surgeon 1 w JACKI RAMON MD Apr 21, 2018 08:57
--- NOTE | 2018-04-21 09:10 | PDOC ---
Provider Note Provider Note [id number] JACKI RAMON MD Apr 21, 2018 09:10
--- NOTE | 2018-04-21 09:42 | PDOC ---
PULMONARY PROGRESS NOTES Subjective sob better, has occ cough, pain in surgery site better, s/p lap anthony 04/19 Vitals Vital Signs Date Time Temp Pulse Resp B/P (MAP) Pulse Ox O2 Delivery O2 Flow Rate FiO2 04/21/18 08:31 Room Air 04/21/18 07:53 97 04/21/18 07:40 96.8 97 17 144/77 (99) 96.8 04/20/18 15:18 2.0 ROS: No Nausea, No Chest Pain, No Increase Cough General: Alert HEENT: Other (nc at perrl ) Lungs: Crackles Cardiovascular: S1, S2 Abdomen: Soft, Non-tender Neuro Exam: Alert Extremities: No Edema Skin: Warm Medications Active Scripts Medications Dose Route/Sig Max Daily Dose Days Date Category No Active Prescriptions or Reported Medications Rx Impression . IMPRESSION: 1. Chronic obstructive pulmonary disease, suspect mild to moderate. 2. Tobacco dependent. 3. Mild acute exacerbation of chronic obstructive pulmonary disease. 4. Abdominal pain secondary to cholecystitis. s/p laparoscopic cholecystectomy. 5. Panic disorder. 6. Anxiety. Plan . 1. prednisone 40 mg daily, taper by 10 mg q 3d. 2. IS 3. Follow Dr. Mcfarland's input. 4. Continue home meds. 5. Nebulized treatments. 6. DVT prophylaxis. 7. quit smoking for ever. discussed w ALDEN Madsen MD Apr 21, 2018 09:42
--- NOTE | 2018-04-21 09:43 | PDOC ---
SURGICAL PROGRESS NOTE Subjective feels better tolerating diet pain managed Vital Signs Vital Signs Date Time Temp Pulse Resp B/P (MAP) Pulse Ox O2 Delivery O2 Flow Rate FiO2 04/21/18 08:31 Room Air 04/21/18 07:53 97 04/21/18 07:40 96.8 97 17 144/77 (99) 96.8 04/20/18 15:18 2.0 I&O Intake and Output 04/21/18 07:01 Intake Total 1680 ml Balance 1680 ml Intake Oral 1680 ml # Voids 5 General: Alert, Oriented X3, Cooperative, No acute distress Abdomen: Soft, Other (lap sites c/d/i, no erythema ) Assessment/Plan s/p anthony ok to dc home FU Sunday with BOAZ Perdomo APRN Apr 21, 2018 09:43
--- NOTE | 2018-04-21 09:54 | DS ---
DATE OF DISCHARGE: 04/21/2018 HOSPITAL SUMMARY: A 53-year-old white female admitted with chronic abdominal pain and chronic aching pain in her upper and lower body of a nonspecific nature. She also had an elevated sed rate as her only abnormal marker. Chemistry profile was unremarkable. CRP high at 35, albumin 3.6, globulin high but the serum protein electrophoresis was unremarkable and showed no M-spike. Light chain assay was unremarkable as well. Sed rate was high at 75 but the CBC was unremarkable. ALDEN was negative. Rheumatoid factor negative. Urinalysis unremarkable. Hepatobiliary scan showed biliary dyskinesia with ejection fraction of about 6%. Hepatic ultrasound showed hepatic steatosis consistent with fatty liver and a nonspecific nodule, but no worrisome findings. She was evaluated by Surgery and then the biliary dyskinesia diagnosis was obtained. She was seen preoperatively and treated with IV steroids, respiratory treatments and Levaquin preoperatively and then had unremarkable laparoscopic cholecystectomy and is doing well 2 days postoperative. Prednisone given for her breathing did not seem to subjectively improve her generalized pain, very much making the diagnosis of PMR unlikely given her high sed rate and CRP. We discussed the likelihood that this is a type of fibromyalgia and we will get her off the steroids shortly, check the sed rate in 1 month and then go with gabapentin trial next for her subjective symptoms. FINAL DIAGNOSES: 1. Chronic biliary dyskinesia secondary to dysfunctional gallbladder. 2. Chronic elevated sed rate, etiology undetermined. 3. Generalized pain, etiology suspicious for fibromyalgia. 4. Nonalcoholic fatty liver disease. 5. Chronic obstructive pulmonary disease with chronic tobacco abuse. OPERATIONS AND PROCEDURES: Laparoscopic cholecystectomy. COMPLICATIONS: None. CONSULTATIONS: Dr. Navarro and Dr. Mcfarland. DISPOSITION: She will taper off prednisone in 5 days. She will take DuoNeb q.i.d. at home as needed and we will have her on gabapentin 300 mg 3 times a day for her fibromyalgia symptoms to see if we can start to see some subjective benefit. Cymbalta would be another option should that drug fail or not be tolerated. She is aware that we will not use opioids for this diagnosis. Opioids were prescribed per Dr. Benson for postoperative pain. Regular diet, high fiber. Complete tobacco avoidance was strongly encouraged. Activity as tolerated. We will also consider a CT of her chest for occult disease if her sed rate does not improve, though the chest x-ray shows no lesions, but her chronic heavy tobacco use increases her risk of malignant and nonmalignant pulmonary conditions. PROGNOSIS: Guarded. JACKI RAMON MD DR: NAHUN/maame JOB#: [id number] / [id number]
--- NOTE | 2018-04-21 10:25 | NUR ---
Discharge Note: DON CHOI [facility] Discharge instructions and discharge home medications reviewed with Patient and a copy given. All questions have been answered and understanding verbalized. The following instructions and handouts were given: information about lab anthony. Discontinued lines and drains: IV line in left forearm removed, catheter tip intact. Patient discharged to home with self care with family members, wheelchair used for mobility to discharge vehicle.
--- NOTE | 2018-04-22 17:09 | PATHOLOGY ---
[facility] Accession Number: [id number] . 01 Material submitted: . GALLBLADDER . 01 Clinical history: . Biliary dyskinesia . 02 Diagnosis: Gallbladder, laparoscopic cholecystectomy: - Chronic cholecystitis, mild. . (JPM:mm; 04/22/2018) [facility]04/22/2018 . 02 Comment: There are no calculi identified within the gallbladder lumen or specimen container. Sections of the gallbladder show mild chronic inflammation. There is no evidence of malignancy. . (JPM:mm; 04/22/2018) . 02 Electronically signed: . Amandeep Waddell MD, Pathologist NPI- [id number] . 01 Gross description: . The specimen is received in formalin, labeled "Terri Beatty, gallbladder", is an intact, distended gallbladder measuring 7.5 x 3.0 x 2.0 cm with a glistening, barnes-green serosa. The lumen is filled with yellow-green viscous bile and no discrete calculi. The mucosa is barnes-brown and granular, and the wall has an average thickness of 0.1 cm. No discrete masses are identified. Design Engineering Intern tissue is submitted in A1. ([facility]; 04/19/2018) SHS/SHS . 02 Pathologist provided ICD-10: K81.1 . 02 CPT . 693410 Specimen Comment: A courtesy copy of this report has been sent to Specimen Comment: [phone], . Specimen Comment: Report sent to and Performed at: [address], [place], [place] [id number] MD Prakash Yang MD Phone: [phone] Performed at: 02 [facility] [address] [place], [place] [id number] MD Amandeep Waddell MD Phone: [phone]
== END 2018-04-21 10:25 | disposition home or self-care (01) | DRG 418 ==
LOC: 5 SOUTH 18:09 → 6 SOUTH 04-17 17:51
PROVIDERS: ADMIT Family Medicine; ATTEND Family Medicine
PROC: BF131ZZ Fluoroscopy of Gallbladder and Bile Ducts using Low Osmolar Contrast (ICD-10-PCS; 2018-04-19)
PROC: 0FT44ZZ Resection of Gallbladder, Percutaneous Endoscopic Approach (ICD-10-PCS; principal; 2018-04-19 11:30)
DX: K81.9 Cholecystitis, unspecified (principal); J44.1 Chronic obstructive pulmonary disease with (acute) exacerbation; K82.8 Other specified diseases of gallbladder; F41.0 Panic disorder [episodic paroxysmal anxiety]; F40.10 Social phobia, unspecified; G89.29 Other chronic pain; M79.7 Fibromyalgia; R70.0 Elevated erythrocyte sedimentation rate; K76.0 Fatty (change of) liver, not elsewhere classified; F17.210 Nicotine dependence, cigarettes, uncomplicated; Z85.528 Personal history of other malignant neoplasm of kidney; Z90.5 Acquired absence of kidney
CPT/HCPCS: 36415; 71046; 74300; 76700; 78227; 80053; 81001; 82550; 83520; 84165; 84550; 85025; 85651; 86038; 86140; 86431; 88304; 94640; 94760; A7015; A9537; G0238; J0696; J0780; J1100; J1610; J1650; J1885; J2001; J2270; J2405; J2704; J2710; J2805; J2930; J3010; J3490; J7030; J7120; J7512; J7620; J7626; Q9967; G0378

== ENCOUNTER 2018-05-02 11:15 | Emergency (ER) | payer OTHER ==
[~2018-05-02] VITALS: Ht 157.5 cm; Wt 86.2 kg
[2018-05-02 12:22] LABS: BILIRUBIN,URINE SMALL (NEG); CLARITY,URINE CLEAR; COLOR,URINE AMBER; NITRITE,URINE NEGATIVE (NEG); PH,URINE 5.5; PROTEIN,URINE NEGATIVE (NEG-TRACE)
[2018-05-02 12:29] LABS: SQUAMOUS EPITHELIAL CELL,UR MANY /LPF
[2018-05-02 12:30] LABS: BACTERIA,URINE FEW /HPF (0-FEW)
[2018-05-02 12:59] LABS: BASO # 0.1 x10^3/uL (0.0-0.2); BASO % 1 % (0-3); EOS # 0.1 x10^3/uL (0.0-0.7); EOS % 1 % (0-3); HEMATOCRIT 46.3 % (36.0-47.0); HEMOGLOBIN 15.5 g/dL (12.0-15.5); LYMPH # 1.9 x10^3/uL (1.0-4.8); LYMPH % 14 % (24-48); MEAN CORPUSCULAR HEMOGLOBIN 31 pg (25-35); MEAN CORPUSCULAR HGB CONC 34 g/dL (31-37); MEAN CORPUSCULAR VOLUME 91 fL (79-100); MONO # 0.7 x10^3/uL (0.0-1.1); MONO % 6 % (0-9); NEUT # 10.7 x10^3uL (1.8-7.7); NEUT % 79 % (31-73); PLATELET COUNT 259 x10^3/uL (140-400); RED CELL DISTRIBUTION WIDTH 14.3 % (11.5-14.5); WHITE BLOOD COUNT 13.5 x10^3/uL (4.0-11.0)
[2018-05-02 13:14] LABS: CALCIUM 9.1 mg/dL (8.5-10.1); CREATININE 0.7 mg/dL (0.6-1.0); GFR 87.5; POTASSIUM 4.2 mmol/L (3.5-5.1)
--- NOTE | 2018-05-02 13:18 | EKG ---
[facility] [address] [place] [address] Test Date: 2018-05-02 Test Time: 12:06:45 Pat Name: YUDELKA CHOI Department: Room: Gender: F Printer Operator: : 1965 Requested By: RUBY PACHECO Order Number: [id number] Reading MD: Measurements Intervals [place] Rate: 104 P: 45 [place]: 120 QRS: -13 QRSD: 84 T: 36 QT: 318 QTc: 424 Interpretive Statements SINUS TACHYCARDIA LEFTWARD AXIS NO SPECIFIC ECG ABNORMALITIES RI6.01 No previous ECG available for comparison
[2018-05-02 13:21] LABS: ALBUMIN 3.2 g/dL (3.4-5.0); ALBUMIN/GLOBULIN RATIO 0.9 (1.0-1.7); TOTAL BILIRUBIN 0.8 mg/dL (0.2-1.0); TOTAL PROTEIN 6.9 g/dL (6.4-8.2)
--- NOTE | 2018-05-02 13:21 | PHYS DOC ---
Past Medical History Past Medical History: Anxiety, COPD, Fibromyalgia, GERD, Other Additional Past Medical Histor: CHRONIC NECK/BACK PAIN,DYSPNEA,PANIC DISORDER, SOCIAL PHOBIA,ASPERGERS Past Surgical History: Cholecystectomy, Other Additional Past Surgical Histo: PARTIAL L NEPHRECTOMY Additional Information: 1.5 PPD Alcohol Use: None Drug Use: None Adult General Chief Complaint Chief Complaint: ABDOMINAL PAIN HPI HPI Patient is a 53 year old who is 2 weeks postop lap cholecystectomy per Dr. Benson who presents with diffuse right upper quadrant/epigastric pain starting yesterday. Pain is described as sharp, worse with palpation and movement. It is not associated with nausea vomiting. Patient does report associated constipation. She is taking laxatives and give herself an enema this morning resulting in only a small bowel movement. She is able to pass gas. No fever chills, sweats. No flank pain. Reports some urinary frequency and urgency. No other acute symptoms or complaints. [] Review of Systems Review of Systems Review symptoms as per history of present illness. All other review symptoms are negative. [] All other systems were reviewed and found to be within normal limits, except as documented in this note. Current Medications Current Medications Current Medications Medications (Trade) Dose Ordered Sig/Nathen Start Time Stop Time Status Last Admin Dose Admin Info (CONTRAST GIVEN -- Rx MONITORING) 1 each PRN DAILY PRN 05/02/18 14:30 05/04/18 14:29 Iohexol (Omnipaque 300 Mg/ml) 75 ml 1X ONCE 05/02/18 14:15 05/02/18 14:17 DC Morphine Sulfate (Morphine Sulfate) 4 mg 1X ONCE 05/02/18 14:00 05/02/18 14:01 DC 05/02/18 14:10 4 MG Ondansetron HCl (Zofran) 4 mg 1X ONCE 05/02/18 14:00 05/02/18 14:01 DC 05/02/18 14:10 4 MG Sodium Chloride 1,000 ml @ 1,000 mls/hr 1X ONCE 05/02/18 14:00 05/02/18 14:59 DC 05/02/18 14:10 1,000 MLS/HR Allergies Allergies Allergies Coded Allergies Type Severity Reaction Last Updated Verified No Known Drug Allergies 04/02/15 No Physical Exam Physical Exam Constitutional: Well developed, well nourished, no acute distress, non-toxic appearance. [] HENT: Normocephalic, atraumatic, bilateral external ears normal, oropharynx moist, no oral exudates, nose normal. [] Eyes: PERRLA, EOMI, conjunctiva normal, no discharge. [] Neck: Normal range of motion, no tenderness. [] Cardiovascular:Heart rate regular rhythm. [] Lungs & Thorax: Bilateral breath sounds clear to auscultation [] Abdomen: Bowel sounds normal, soft, no tenderness. [] Skin: Warm, dry, no erythema, no rash. [] Back: No tenderness. [] Extremities: No tenderness. [] Neurologic: Alert and oriented X 3, normal motor function, normal sensory function, no focal deficits noted. [] Psychologic: Affect normal, judgement normal, mood normal. [] Current Patient Data Vital Signs Vital Signs Date Time Temp Pulse Resp B/P (MAP) Pulse Ox O2 Delivery O2 Flow Rate FiO2 05/02/18 14:41 98 114/57 (76) 95 Room Air 05/02/18 14:10 20 05/02/18 11:52 97.8 97.8 Lab Values Laboratory Tests Test 05/02/18 11:50 05/02/18 12:50 Urine Collection Type Void Urine Color Kika Urine Clarity Clear Urine pH 5.5 Urine Specific Pillow 1.025 Urine Protein Negative mg/dL (NEG-TRACE) Urine Glucose (UA) Negative mg/dL (NEG) Urine Ketones (Stick) Negative mg/dL (NEG) Urine Blood Moderate (NEG) Urine Nitrite Negative (NEG) Urine Bilirubin Small (NEG) Urine Urobilinogen Dipstick 1.0 mg/dL (0.2 mg/dL) Urine Leukocyte Esterase Small (NEG) Urine RBC 3-5 /HPF (0-2) Urine WBC 1-4 /HPF (0-4) Urine Squamous Epithelial Cells Many /LPF Urine Bacteria Few /HPF (0-FEW) Urine Mucus Mod /LPF White Blood Count 13.5 x10^3/uL (4.0-11.0) H Red Blood Count 5.10 x10^6/uL (3.50-5.40) Hemoglobin 15.5 g/dL (12.0-15.5) Hematocrit 46.3 % (36.0-47.0) Mean Corpuscular Volume 91 fL (79-100) Mean Corpuscular Hemoglobin 31 pg (25-35) Mean Corpuscular Hemoglobin Concent 34 g/dL (31-37) Red Cell Distribution Width 14.3 % (11.5-14.5) Platelet Count 259 x10^3/uL (140-400) Neutrophils (%) (Auto) 79 % (31-73) H Lymphocytes (%) (Auto) 14 % (24-48) L Monocytes (%) (Auto) 6 % (0-9) Eosinophils (%) (Auto) 1 % (0-3) Basophils (%) (Auto) 1 % (0-3) Neutrophils # (Auto) 10.7 x10^3uL (1.8-7.7) H Lymphocytes # (Auto) 1.9 x10^3/uL (1.0-4.8) Monocytes # (Auto) 0.7 x10^3/uL (0.0-1.1) Eosinophils # (Auto) 0.1 x10^3/uL (0.0-0.7) Basophils # (Auto) 0.1 x10^3/uL (0.0-0.2) Sodium Level 136 mmol/L (136-145) Potassium Level 4.2 mmol/L (3.5-5.1) Chloride Level 100 mmol/L (98-107) Carbon Dioxide Level 29 mmol/L (21-32) Anion Gap 7 (6-14) Blood Urea Nitrogen 9 mg/dL (7-20) Creatinine 0.7 mg/dL (0.6-1.0) Estimated GFR (Cockcroft-Gault) 87.5 BUN/Creatinine Ratio 13 (6-20) Glucose Level 99 mg/dL (70-99) Calcium Level 9.1 mg/dL (8.5-10.1) Total Bilirubin 0.8 mg/dL (0.2-1.0) Aspartate Amino Transferase (AST) 191 U/L (15-37) H Alanine Aminotransferase (ALT) 193 U/L (14-59) H Alkaline Phosphatase 198 U/L (46-116) H Troponin I Quantitative < 0.017 ng/mL (0.000-0.055) Total Protein 6.9 g/dL (6.4-8.2) Albumin 3.2 g/dL (3.4-5.0) L Albumin/Globulin Ratio 0.9 (1.0-1.7) L Lipase 119 U/L (73-393) Laboratory Tests 05/02/18 12:50 Laboratory Tests 05/02/18 12:50 EKG EKG [] Radiology/Procedures Radiology/Procedures [CT abd/pelvis: Radiology report/findings reviewed ] Course & Med Decision Making Course & Med Decision Making Pertinent Labs and Imaging studies reviewed. (See chart for details) CT, Labs, clinical course reviewed in detail with Dr. Benson. Recommendations are continued supportive care, home pain control with follow-up in office as scheduled. All questions answered. Patient verbalizes understanding agreement discharge instructions prior to departure. Dragon Disclaimer Dragon Disclaimer This electronic medical record was generated, in whole or in part, using a voice recognition dictation system. Departure Departure Impression: Primary Impression: Abdominal pain Disposition: HOME, SELF-CARE Condition: GOOD Referrals: JACKI RAMON MD (PCP) Patient Instructions: Abdominal Pain (Nonspecific), Constipation, Adult, Urinary Tract Infection, [id number] Additional Instructions: Please increase fluids, continue home pain medication and take 1-2 bottles of mag citrate as needed for relief constipation. Take antibiotics as directed for treatment of urinary tract infection. Follow-up with Dr. Benson next week as scheduled. Return to the ED if new or worsening symptoms Scripts Sulfamethoxazole/Trimethoprim (BACTRIM DS TABLET) 1 Each Tablet 1 TAB PO BID, #14 TAB Prov: RUBY PACHECO DO 05/02/18 RUBY PACHECO DO May 02, 2018 13:21
[2018-05-02] MEDS: ONDANSETRON PF 4 MG/2 ML VIAL. IV ONE (14:10)
[2018-05-02] MEDS: MORPHINE SULFATE 4 MG/ML VIAL. IV ONE (14:10)
[2018-05-02] MEDS: IV NORMAL SALINE 1000ML BAG 1,000 ML IV ONE (14:10)
[2018-05-02] MEDS ORDERED: IOHEXOL 300 MG/ML 100ML VIAL. IV ONE (14:15)
[2018-05-02] MEDS: IOHEXOL 300 MG/ML 100ML VIAL. IV ONE (14:28)
[2018-05-02] MEDS ORDERED: CONTRAST GIVEN. MC PRN (14:30)
--- NOTE | 2018-05-02 14:55 | RAD ---
Examination: CT of the abdomen pelvis with IV contrast HISTORY: History of bilateral upper and right lower abdominal pain COMPARISON: None available TECHNIQUE: Axial CT images of the abdomen pelvis were performed with IV contrast. Coronal and sagittal reformats are performed Exposure: One or more of the following individualized dose reduction techniques were utilized for this examination: 1. Automated exposure control 2. Adjustment of the mA and/or kV according to patient size 3. Use of iterative reconstruction technique FINDINGS: Minimal bibasilar lung atelectasis. No evidence of free air identified in the abdomen. Mild decreased attenuation within the liver likely hepatic steatosis. The visualized spleen, adrenals grossly appears unremarkable. Small hiatal hernia is identified. The stomach is mildly distended. Cholecystectomy changes identified. There is mild fat stranding identified in the gallbladder fossa in the second part of the duodenum region. The visualized pancreas grossly appears unremarkable. The small bowel is nondilated. Feces and gas noted in the colon. Appendix is normal. Multiple heterogeneous densities identified in the uterus with the largest measuring 6.3 cm likely fibroids. The urinary bladder is mildly distended. The bilateral kidneys enhance symmetrically. Moderate aortic atherosclerosis. Mild degenerative changes lumbar spine. Small fat and omentum-containing umbilical hernia. Minimal fat stranding identified within the herniated omentum. Impression: 1. Mild fat stranding identified about the gallbladder fossa and second part of the duodenum probably due to recent surgical changes. Other possibility is duodenitis. 2. Mild hepatic steatosis. 3. Small hiatal hernia. 4. Fibroid uterus. 5. Small fat and omentum-containing umbilical hernia. There is minimal fat stranding identified within the herniated omentum. Electronically signed by: Ramu Griffiths MD (05/02/2018 2:51 PM) [place] [id number]
[2018-05-02] MEDS ORDERED: SULF1TAB24 PO (15:09)
[2018-05-02 15:14] VITALS: BP 100/59
== END 2018-05-02 15:27 | disposition home or self-care (01) ==
LOC: ER 11:15
DX: R10.13 Epigastric pain (principal); K59.00 Constipation, unspecified; R35.0 Frequency of micturition; R10.11 Right upper quadrant pain; F41.9 Anxiety disorder, unspecified; G89.29 Other chronic pain; J44.9 Chronic obstructive pulmonary disease, unspecified; K21.9 Gastro-esophageal reflux disease without esophagitis; F17.200 Nicotine dependence, unspecified, uncomplicated; Z90.49 Acquired absence of other specified parts of digestive tract; Z90.5 Acquired absence of kidney
CPT/HCPCS: 36415; 74177; 80053; 81001; 83690; 84484; 85025; 87086; 93005; 96374; 96375; 99284; J2270; J2405; J7030; Q9967

== ENCOUNTER 2019-01-19 09:52 | Inpatient (IN) | payer SELFPAY ==
[~2019-01-19] VITALS: Ht 157.5 cm; Wt 98.7 kg
[~2019-01-19 09:52] MED LIST: SULF1TAB24 PO
[2019-01-19] MEDS ORDERED: IV NORMAL SALINE 1000ML BAG 1,000 ML IV ONE (10:45)
[2019-01-19] MEDS ORDERED: methylPREDNISolone SOD SUCC PF 125 MG/2 ML VIAL. IV ONE (10:45)
[2019-01-19] MEDS ORDERED: MORPHINE SULFATE 4 MG/ML VIAL. IV ONE ×2 (10:45→11:45)
[2019-01-19] MEDS ORDERED: ONDANSETRON PF 4 MG/2 ML VIAL. IV ONE (10:45)
[2019-01-19] MEDS ORDERED: diphenhydrAMINE 50 MG/ML VIAL IVP ONE (10:45)
[2019-01-19 11:08] LABS: BASO % 0 % (0-3); EOS % 0 % (0-3); HEMOGLOBIN 16.5 g/dL (12.0-15.5); LYMPH % 21 % (24-48); MEAN CORPUSCULAR HEMOGLOBIN 30 pg (25-35); MEAN CORPUSCULAR HGB CONC 34 g/dL (31-37); MEAN CORPUSCULAR VOLUME 90 fL (79-100); MONO # 0.5 x10^3/uL (0.0-1.1); MONO % 3 % (0-9); NEUT # 10.7 x10^3/uL (1.8-7.7); NEUT % 75 % (31-73); PLATELET COUNT 346 x10^3/uL (140-400); RED BLOOD COUNT 5.46 x10^6/uL (3.50-5.40); RED CELL DISTRIBUTION WIDTH 14.8 % (11.5-14.5); WHITE BLOOD COUNT 14.2 x10^3/uL (4.0-11.0)
[2019-01-19 11:08] LABS: BILIRUBIN,URINE SMALL (NEG); CLARITY,URINE CLOUDY; NITRITE,URINE NEGATIVE (NEG); PROTEIN,URINE NEGATIVE (NEG-TRACE); UROBILINOGEN,URINE 0.2 mg/dL (0.2 mg/dL)
[2019-01-19 11:15] LABS: COLOR,URINE YELLOW; SQUAMOUS EPITHELIAL CELL,UR MANY /LPF
[2019-01-19 11:16] LABS: BACTERIA,URINE FEW /HPF (0-FEW); WBC,URINE OCC /HPF (0-4)
--- NOTE | 2019-01-19 11:16 | RAD ---
CHEST AP ONLY Clinical History: Technique: AP view of the chest was obtained at 01/19/2019 10:43 AM. Comparison: April 15, 2018. Findings: The cardiomediastinal silhouette is normal. The pulmonary vasculature is normal. The lungs and pleural margins are clear. Impression: No evidence of an acute cardiopulmonary process. Electronically signed by: Kobe Reeves III, MD (01/19/2019 11:13 AM) [facility]
[2019-01-19 11:17] LABS: CALCIUM 9.6 mg/dL (8.5-10.1); CREATININE 0.9 mg/dL (0.6-1.0); GFR 65.5; POTASSIUM 4.1 mmol/L (3.5-5.1)
[2019-01-19 11:25] LABS: ALBUMIN 3.7 g/dL (3.4-5.0); ALBUMIN/GLOBULIN RATIO 0.8 (1.0-1.7); MAGNESIUM 1.9 mg/dL (1.8-2.4); TOTAL BILIRUBIN 0.5 mg/dL (0.2-1.0); TOTAL PROTEIN 8.4 g/dL (6.4-8.2)
[2019-01-19] MEDS ORDERED: IOHEXOL 300 MG/ML 100ML VIAL. IV ONE (11:45)
[2019-01-19] MEDS ORDERED: CONTRAST GIVEN. MC PRN (12:00)
--- NOTE | 2019-01-19 12:20 | RAD ---
CT SCAN OF THE ABDOMEN AND PELVIS WITH IV CONTRAST. History: Increasing pain and umbilical hernia Comparison: May 02, 2018. Procedure: Contiguous axial images of the abdomen and pelvis were performed after the administration of 75 cc of Isovue 370 IV contrast and oral contrast. CT Abdomen with contrast: Findings: Liver: Hypoattenuating Spleen: Unremarkable Pancreas: Unremarkable Adrenal Glands: Unremarkable Kidneys: Unremarkable There is no mass or lymphadenopathy. There is no free air. There is no free fluid. CT Pelvis with Contrast: Findings: There is a fat-containing umbilical hernia which appears mildly larger. The appendix is not well seen. There is a 5 similar fibroid anteriorly in the uterus. The urinary bladder appears normal. There is no free fluid. There is no lymphadenopathy. There is fat-containing umbilical hernias which were seen previously. Impression: 1. Fibroid uterus. 2. Moderate sized fat-containing umbilical hernia appears mildly worse. 3. Fatty infiltration of the liver. PQRS Compliance Statement: One or more of the following individualized dose reduction techniques were utilized for this examination: 1. Automated exposure control 2. Adjustment of the mA and/or kV according to patient size 3. Use of iterative reconstruction technique Electronically signed by: Kobe Reeves III, MD (01/19/2019 12:17 PM) [facility]
--- NOTE | 2019-01-19 13:08 | PHYS DOC ---
Past Medical History Past Medical History: Anxiety, Cancer, COPD, Fibromyalgia, GERD, Other Additional Past Medical Histor: LIVER NODULES,KIDNEY CA,CHRONIC NECK/BACK PAIN,ASPERGERS (YANNICK GAFFNEY APRN) Past Surgical History: Cholecystectomy, Other Additional Past Surgical Histo: PARTIAL L NEPHRECTOMY (YANNICK GAFFNEY APRN) Alcohol Use: None Drug Use: None (YANNICK GAFFNEY APRN) Adult General Chief Complaint Chief Complaint: ABDOMINAL PAIN HPI HPI Patient is a 53 year old female, accompanied by her , who presents to the emergency department with complaints of increased umbilical abdominal pain over the last 2-3 weeks. Patient states she developed an umbilical hernia after having a laparoscopic cholecystectomy by Dr. Benson 4-5 months ago. She also complains of a itchy red rash to her upper and lower extremities since yesterday. She denies any new environmental exposures, medications, detergents, or fragrances. She denies any shortness of breath, chest pain, vomiting, or diarrhea. She states when she lays down she does have some wheezing. Patient complains of nausea and abdominal pain that she rates an 8 out of 10 on the pain scale. She denies any alleviating factors, the pain increases if pressure is applied to her umbilicus. (YANNICK GAFFNEY APRN) Review of Systems Review of Systems Constitutional: Denies fever or chills [] Eyes: Denies change in visual acuity, redness, or eye pain [] HENT: Denies nasal congestion or sore throat [] Respiratory: Denies cough or shortness of breath [] Cardiovascular: No additional information not addressed in HPI [] GI: Denies vomiting, bloody stools or diarrhea; see HPI : Denies dysuria or hematuria [] Musculoskeletal: Denies back pain or joint pain [] Integument: Denies skin lesions; see HPI Neurologic: Denies headache, focal weakness or sensory changes [] Endocrine: Denies polyuria or polydipsia [] Complete other systems were reviewed and found to be within normal limits, except as documented in this note. (YANNICK GAFFNEY APRN) Current Medications Current Medications Current Medications Medications (Trade) Dose Ordered Sig/Nathen Start Time Stop Time Status Last Admin Dose Admin Diphenhydramine HCl (Benadryl) 25 mg 1X ONCE 01/19/19 10:45 01/19/19 10:48 DC 01/19/19 11:11 25 MG Info (CONTRAST GIVEN -- Rx MONITORING) 1 each PRN DAILY PRN 01/19/19 12:00 01/21/19 11:59 Iohexol (Omnipaque 300 Mg/ml) 75 ml 1X ONCE 01/19/19 11:45 01/19/19 11:46 DC Methylprednisolone Sodium Succinate (SOLU-Medrol 125MG VIAL) 125 mg 1X ONCE 01/19/19 10:45 01/19/19 10:48 DC 01/19/19 11:11 125 MG Morphine Sulfate (Morphine Sulfate) 4 mg 1X ONCE 01/19/19 11:45 01/19/19 11:46 DC 01/19/19 12:12 4 MG Ondansetron HCl (Zofran) 4 mg 1X ONCE 01/19/19 10:45 01/19/19 10:48 DC 01/19/19 11:11 4 MG Sodium Chloride 1,000 ml @ 1,000 mls/hr 1X ONCE 01/19/19 10:45 01/19/19 11:44 DC 01/19/19 11:10 1,000 MLS/HR (DIGNA ARNETT MD) Allergies Allergies Allergies Coded Allergies Type Severity Reaction Last Updated Verified clonazepam Adverse Reaction Unknown Nausea and Vomiting 01/19/19 Yes pregabalin Adverse Reaction Unknown 01/19/19 Yes (DIGNA ARNETT MD) Physical Exam Physical Exam Constitutional: Well developed, well nourished, no acute distress, non-toxic appearance, obese. [] HENT: Normocephalic, atraumatic, bilateral external ears normal, oropharynx moist, no oral exudates, nose normal. [] Eyes: PERRLA, EOMI, conjunctiva normal, no discharge. [] Neck: Normal range of motion, no stridor. [] Cardiovascular:Heart rate tachycardic rhythm, no murmur [] Lungs & Thorax: Bilateral breath sounds clear to auscultation [] Abdomen: Bowel sounds normal, soft, no masses, no pulsatile masses; periumbilical tenderness to palpation, visible left umbilical hernia, no rebound tenderness Skin: Warm, dry; erythremic maculopapular rash noted to extremities x4 and upper chest Back: No tenderness, Extremities: No cyanosis, no clubbing, ROM intact, 1+ bilateral lower extremity edema Neurologic: Alert and oriented X 3, no focal deficits noted. [] Psychologic: Affect normal, judgement normal, mood normal. [] (YANNICK GAFFNEY APRN) Current Patient Data Vital Signs Vital Signs Date Time Temp Pulse Resp B/P (MAP) Pulse Ox O2 Delivery O2 Flow Rate FiO2 01/19/19 13:30 103 18 117/62 (80) 99 Room Air 01/19/19 10:35 97.4 97.4 (DIGNA ARNETT MD) Lab Values Laboratory Tests Test 01/19/19 10:04 01/19/19 10:50 Urine Collection Type Unknown Urine Color Yellow Urine Clarity Cloudy Urine pH 5.0 Urine Specific [place] 1.020 Urine Protein Negative mg/dL (NEG-TRACE) Urine Glucose (UA) Negative mg/dL (NEG) Urine Ketones (Stick) Negative mg/dL (NEG) Urine Blood Moderate (NEG) Urine Nitrite Negative (NEG) Urine Bilirubin Small (NEG) Urine Urobilinogen Dipstick 0.2 mg/dL (0.2 mg/dL) Urine Leukocyte Esterase Negative (NEG) Urine RBC 1-2 /HPF (0-2) Urine WBC Occ /HPF (0-4) Urine Squamous Epithelial Cells Many /LPF Urine Bacteria Few /HPF (0-FEW) Urine Mucus Marked /LPF White Blood Count 14.2 x10^3/uL (4.0-11.0) H Red Blood Count 5.46 x10^6/uL (3.50-5.40) H Hemoglobin 16.5 g/dL (12.0-15.5) H Hematocrit 49.0 % (36.0-47.0) H Mean Corpuscular Volume 90 fL (79-100) Mean Corpuscular Hemoglobin 30 pg (25-35) Mean Corpuscular Hemoglobin Concent 34 g/dL (31-37) Red Cell Distribution Width 14.8 % (11.5-14.5) H Platelet Count 346 x10^3/uL (140-400) Neutrophils (%) (Auto) 75 % (31-73) H Lymphocytes (%) (Auto) 21 % (24-48) L Monocytes (%) (Auto) 3 % (0-9) Eosinophils (%) (Auto) 0 % (0-3) Basophils (%) (Auto) 0 % (0-3) Neutrophils # (Auto) 10.7 x10^3/uL (1.8-7.7) H Lymphocytes # (Auto) 3.0 x10^3/uL (1.0-4.8) Monocytes # (Auto) 0.5 x10^3/uL (0.0-1.1) Eosinophils # (Auto) 0.0 x10^3/uL (0.0-0.7) Basophils # (Auto) 0.0 x10^3/uL (0.0-0.2) Sodium Level 139 mmol/L (136-145) Potassium Level 4.1 mmol/L (3.5-5.1) Chloride Level 100 mmol/L (98-107) Carbon Dioxide Level 27 mmol/L (21-32) Anion Gap 12 (6-14) Blood Urea Nitrogen 10 mg/dL (7-20) Creatinine 0.9 mg/dL (0.6-1.0) Estimated GFR (Cockcroft-Gault) 65.5 BUN/Creatinine Ratio 11 (6-20) Glucose Level 109 mg/dL (70-99) H Calcium Level 9.6 mg/dL (8.5-10.1) Magnesium Level 1.9 mg/dL (1.8-2.4) Total Bilirubin 0.5 mg/dL (0.2-1.0) Aspartate Amino Transferase (AST) 28 U/L (15-37) Alanine Aminotransferase (ALT) 37 U/L (14-59) Alkaline Phosphatase 115 U/L (46-116) Total Protein 8.4 g/dL (6.4-8.2) H Albumin 3.7 g/dL (3.4-5.0) Albumin/Globulin Ratio 0.8 (1.0-1.7) L Lipase 119 U/L (73-393) Laboratory Tests 01/19/19 10:50 Laboratory Tests 01/19/19 10:50 (DIGNA ARNETT MD) EKG EKG 1041- sinus tachycardia, leftward axis, no STEMI read by Dr. Arnett, rate 116[] (YANNICK GAFFNEY APRN) Radiology/Procedures Radiology/Procedures PROCEDURE: CT ABD PELV W/ IV CONTRST ONLY CT SCAN OF THE ABDOMEN AND PELVIS WITH IV CONTRAST. History: Increasing pain and umbilical hernia Comparison: May 02, 2018. Procedure: Contiguous axial images of the abdomen and pelvis were performed after the administration of 75 cc of Isovue 370 IV contrast and oral contrast. CT Abdomen with contrast: Findings: Liver: Hypoattenuating Spleen: Unremarkable Pancreas: Unremarkable Adrenal Glands: Unremarkable Kidneys: Unremarkable There is no mass or lymphadenopathy. There is no free air. There is no free fluid. CT Pelvis with Contrast: Findings: There is a fat-containing umbilical hernia which appears mildly larger. The appendix is not well seen. There is a 5 similar fibroid anteriorly in the uterus. The urinary bladder appears normal. There is no free fluid. There is no lymphadenopathy. There is fat-containing umbilical hernias which were seen previously. Impression: 1. Fibroid uterus. 2. Moderate sized fat-containing umbilical hernia appears mildly worse. 3. Fatty infiltration of the liver.[] PROCEDURE: CHEST AP ONLY CHEST AP ONLY Clinical History: Technique: AP view of the chest was obtained at 01/19/2019 10:43 AM. Comparison: April 15, 2018. Findings: The cardiomediastinal silhouette is normal. The pulmonary vasculature is normal. The lungs and pleural margins are clear. Impression: No evidence of an acute cardiopulmonary process. (YANNICK GAFFNEY APRN) Course & Med Decision Making Course & Med Decision Making Pertinent Labs and Imaging studies reviewed. (See chart for details) Dx: umbilical hernia, abdominal pain Pt was given 125 mg of solumedrol and 25 mg of benadryl for itching and rash 1L NS, morhine 4 mg IV x2. fentanyl 50 mcq, and zofran 4 mg IV were ordered for treatment of pain and nausea CBC: WBC 14.2, CMP: glucose 109; UA unremarkable CXR no acute findings CT abd/pel: worsening umbilical hernia 1304- Spoke with Dr. Albright about worsening umbilical hernia, per Dr. Albright surgery will evaluate patient, consult Dr. Benson as he was her physician for the cholecystectomy. 1338- Spoke with Dr. Ramon who will admit patient for abdominal pain and umbilical hernia. [] (YANNICK GAFFNEY APRN) Course & Med Decision Making Staff Physician Addendum: I was working in the ER during the course of this patient's visit. I was janusz ilable for consultation as needed, but I was not directly involved in the care of this patient. (DIGNA ARNETT MD) Dragon Disclaimer Dragon Disclaimer This electronic medical record was generated, in whole or in part, using a voice recognition dictation system. (YANNICK GAFFNEY APRN) Departure Departure Impression: Primary Impression: Abdominal pain Additional Impression: Umbilical hernia Disposition: 09 ADMITTED INPATIENT Admitting Physician: Jacki Ramon (YANNICK GAFFNEY IMAGING SPECIALIST) Condition: STABLE Referrals: JACKI RAMON MD (PCP) Problem Qualifiers Primary Impression: Abdominal pain Abdominal location: periumbilical Qualified Codes: R10.33 - Periumbilical pain Additional Impression: Umbilical hernia Obstruction and gangrene presence: without obstruction or gangrene Qualified Codes: K42.9 - Umbilical hernia without obstruction or gangrene YANNICK GAFFNEY APRN Jan 19, 2019 13:08 DIGNA ARNETT MD Jan 20, 2019 08:18
[2019-01-19] MEDS ORDERED: fentaNYL PF VIAL 100 MCG/2 ML VIAL IV ONE (14:00)
[2019-01-19] MEDS ORDERED: ONDANSETRON PF 4 MG/2 ML VIAL. IV PRN (14:00)
[2019-01-19 15:34] VITALS: BP 109/64
[2019-01-19] MEDS ORDERED: DIPH25CA58 PO (15:58)
[2019-01-19] MEDS ORDERED: CITA20TA9 PO (15:58)
[2019-01-19] MEDS ORDERED: PANT20TA2 PO (15:58)
[2019-01-19] MEDS ORDERED: GABA600T7 PO (15:58)
[2019-01-19] MEDS ORDERED: LORA2TAB89 PO (15:58)
[2019-01-19] MEDS ORDERED: ALBU2.5V8 INH (15:58)
[2019-01-19] MEDS ORDERED: SENN-37 PO (15:58)
[2019-01-19] MEDS ORDERED: CYCL10TA2 PO (15:58)
[2019-01-19] MEDS ORDERED: FLUT1DIS3 IH (15:58)
[2019-01-19] MEDS ORDERED: IPRA3AMP29 NEB (15:58)
[2019-01-19] MEDS ORDERED: ACET500T33 PO (15:58)
[2019-01-19] MEDS ORDERED: NICO1PAT21 TP (15:58)
[2019-01-19] MEDS ORDERED: ACETAMINOPHEN 500 MG TABLET PO PRN (16:15)
[2019-01-19] MEDS ORDERED: ALBUTEROL SULFATE 2.5 MG/3 ML NEBU. INH PRN (16:15)
[2019-01-19] MEDS: diphenhydrAMINE HCL 25 MG CAPSULE PO PRN ×2 (16:39→23:18)
[2019-01-19] MEDS: NICOTINE 21MG PATCH. TD SCH (16:39)
[2019-01-19] MEDS: fentaNYL PF VIAL 100 MCG/2 ML VIAL IV PRN ×2 (16:42→21:08)
[2019-01-19 19:00] VITALS: BP 119/66
[2019-01-19] MEDS: IPRATRPIUM/ALBUTEROL 0.5/2.5MG 3 ML NEBU. NEB SCH (19:50)
[2019-01-19] MEDS: BUDESONIDE 0.5 MG/2 ML NEBU. NEB SCH (19:50)
[2019-01-19] MEDS: LORazepam 1 MG TABLET PO SCH (20:58)
[2019-01-19] MEDS: CYCLOBENZAPRINE 10 MG TABLET. PO SCH (20:58)
[2019-01-19] MEDS: SENNOSIDES/DOCUSATE 8.6/50MG TABLET. PO SCH (20:59)
[2019-01-19] MEDS: GABAPENTIN 300 MG CAPSULE. PO SCH (20:59)
[2019-01-19] MEDS ORDERED: NON FORMULARY ITEM (Fluticasone/Salmeterol (Advair 250-50 Diskus) 1 PUFF) IH SCH (21:00)
[2019-01-19 23:02] VITALS: BP 137/77
[2019-01-20] VITALS (11 sets, daily range): BP systolic 98–161; BP diastolic 56–84
[2019-01-20] MEDS: IPRATRPIUM/ALBUTEROL 0.5/2.5MG 3 ML NEBU. NEB SCH ×4 (06:57→20:00)
[2019-01-20] MEDS: BUDESONIDE 0.5 MG/2 ML NEBU. NEB SCH ×2 (06:58→20:00)
[2019-01-20] MEDS: PANTOPRAZOLE 40 MG TABLET.DR. PO SCH (07:30)
--- NOTE | 2019-01-20 08:18 | EKG ---
[facility] [address] [place] [address] Test Date: 2019-01-19 Test Time: 10:41:41 Pat Name: YUDELKA CHOI Department: Room: 420 Gender: F P[employer] R[employer]: : 1965 Requested By: YANNICK GAFFNEY Order Number: [id number] Reading MD: Glynn Alvarez MD Measurements Intervals [place] Rate: 116 P: 60 CA: 128 QRS: -1 QRSD: 78 T: 40 QT: 306 QTc: 431 Interpretive Statements SINUS TACHYCARDIA Electronically Signed On 01-28-2019 13:31:57 CDT by Glynn Alvarez MD
--- NOTE | 2019-01-20 08:19 | PDOC1 ---
H & P. HPI: Ms. Beatty is a 53-year-old female with a past medical history of autism spectrum disorder, COPD, nonalcoholic fatty liver disease, panic disorder, history of renal cell carcinoma, who presented to the emergency room yesterday for increasing umbilical pain for the last 2-3 weeks. She has a history of a laparoscopic cholecystectomy by Dr. Benson 4-5 months ago. She appears to have developed the umbilical hernia after that surgery. She notes nausea and umbilical abdominal pain that was moderate to severe upon presentation. She describes the pain as worsened with pressure applied to the umbilicus. She denies shortness of breath, chest pain, vomiting, diarrhea, dysuria. Labs are remarkable for mild leukocytosis and mild polycythemia, suspect that these are related to dehydration, though polycythemia may be related to smoking history. Abdominal CT was significant for moderate fat-containing umbilical hernia, fatty liver infiltrate. She was admitted for evaluation by surgery and possible intervention for the hernia. ROS: Constitutional: Denies fever, fatigue, chills HEENT: Denies sore throat, vision changes Cardio: Denies chest pain, dyspnea with exertion, syncope, palpitations, edema Pulmonary: Denies shortness of breath, cough, wheezing GI: Admits abdominal pain, hernia, nausea; denies vomiting, diarrhea, constipation : Denies dysuria, frequency, urgency, incontinence Skin: Denies new lesions Neuro: Denies weakness, paresthesias PMH: As above FAMILY HX: Father is and suffered from alcoholism, heart disease, chronic kidney disease, hypertension, diabetes, asthma. Mother is and suffered from anemia, and had cancer of unknown primary origin. Siblings have alcoholism, arthritis, diabetes, hypertension. SOCIAL HX: Current smoker, smokes about a pack a day for many years. No significant alcohol use, no drug use. SURGICAL HX: Cholecystectomy in April 2018. Partial nephrectomy in April 2016. Oral surgery in 2016. MEDS: Reviewed and reconciled ALLERGIES: Reviewed PE: Alert, oriented, no acute distress EOMI, sclera non-icteric Neck supple RRR, no murmur CTAB, no wheezes, crackles or rhonchi Soft, ND, umbilical hernia noted with tenderness surrounding No edema, cyanosis. Normal capillary refill. Calm, cooperative, mood/affect within normal limits ASSESSMENT & PLAN: Abdominal pain, secondary to umbilical hernia Mild leukocytosis Mild polycythemia, likely chronic Nonalcoholic fatty liver disease COPD Panic disorder History of renal cell carcinoma Nicotine dependence Autism spectrum disorder Surgeries been consulted for evaluation. Pain control Repeat CBC CARYL MESSINA MD Jan 20, 2019 08:19
[2019-01-20] MEDS: GABAPENTIN 300 MG CAPSULE. PO SCH ×4 (08:23→20:33)
[2019-01-20] MEDS: CYCLOBENZAPRINE 10 MG TABLET. PO SCH ×4 (08:23→20:34)
[2019-01-20] MEDS: SENNOSIDES/DOCUSATE 8.6/50MG TABLET. PO SCH ×3 (08:23→20:34)
[2019-01-20] MEDS: CITALOPRAM 20 MG TABLET. PO SCH ×2 (08:23→09:00)
[2019-01-20] MEDS: LORazepam 1 MG TABLET PO SCH ×3 (08:23→20:16)
[2019-01-20] MEDS: NICOTINE 21MG PATCH. TD SCH (09:00)
[2019-01-20] MEDS: fentaNYL PF VIAL 100 MCG/2 ML VIAL IV PRN ×3 (09:02→17:03)
[2019-01-20] MEDS ORDERED: TRIAMCINOLONE ACETONIDE 0.1% TOPICAL OINTMENT 15GM TUBE. TP PRN (09:45)
--- NOTE | 2019-01-20 10:04 | PDOC2 ---
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 Shortly after surgery developed hernia. Reports increasing in size and more pain. She does have some chronic abdominal pain. Intermittent nausea, bowels have been functioning. Reports bloating after meals Past Medical History Pulmonary: COPD Hepatobiliary: Other (fatty liver) Rheumatologic: Fibromyalgia Renal/: Chronic renal insuff, Renal Ca. Past Surgical History Past Surgical History: Cholecystectomy, Other (nephrectomy) Family History Family History: No Significant Social History 1 pack per day ALCOHOL: social Drugs: None Lives: Alone Current Problem List Problem List Problems Medical Problems: (1) Umbilical hernia Status: Acute Current Medications Current Medications Current Medications Sodium Chloride 1,000 ml @ 1,000 mls/hr 1X ONCE IV Last administered on 01/19/19at 11:10; Start 01/19/19 at 10:45; Stop 01/19/19 at 11:44; Status DC Ondansetron HCl (Zofran) 4 mg 1X ONCE IV Last administered on 01/19/19at 11:11; Start 01/19/19 at 10:45; Stop 01/19/19 at 10:48; Status DC Diphenhydramine HCl (Benadryl) 25 mg 1X ONCE IVP Last administered on 01/19/19at 11:11; Start 01/19/19 at 10:45; Stop 01/19/19 at 10:48; Status DC Methylprednisolone Sodium Succinate (SOLU-Medrol 125MG VIAL) 125 mg 1X ONCE IV Last administered on 01/19/19at 11:11; Start 01/19/19 at 10:45; Stop 01/19/19 at 10:48; Status DC Morphine Sulfate (Morphine Sulfate) 4 mg 1X ONCE IV Last administered on 01/19/19at 11:12; Start 01/19/19 at 10:45; Stop 01/19/19 at 10:48; Status DC Morphine Sulfate (Morphine Sulfate) 4 mg 1X ONCE IV Last administered on 01/19/19at 12:12; Start 01/19/19 at 11:45; Stop 01/19/19 at 11:46; Status DC Iohexol (Omnipaque 300 Mg/ml) 75 ml 1X ONCE IV ; Start 01/19/19 at 11:45; Stop 01/19/19 at 11:46; Status DC Info (CONTRAST GIVEN -- Rx MONITORING) 1 each PRN DAILY PRN MC SEE COMMENTS; Start 01/19/19 at 12:00; Stop 01/21/19 at 11:59 Fentanyl Citrate (Fentanyl 2ml Vial) 50 mcg 1X ONCE IV Last administered on 01/19/19at 14:12; Start 01/19/19 at 14:00; Stop 01/19/19 at 14:01; Status DC Ondansetron HCl (Zofran) 4 mg PRN Q8HRS PRN IV NAUSEA/VOMITING Last administered on 01/19/19at 21:07; Start 01/19/19 at 14:00; Stop 01/20/19 at 13:59 Fentanyl Citrate (Fentanyl 2ml Vial) 50 mcg PRN Q2HR PRN IV PAIN Last ad ministered on 01/20/19at 09:02; Start 01/19/19 at 14:00; Stop 01/20/19 at 13:59 Acetaminophen (Tylenol) 500 mg PRN Q6HRS PRN PO PAIN; Start 01/19/19 at 16:15 Albuterol Sulfate (Ventolin Neb Soln) 2.5 mg PRN Q6HRS PRN INH SHORTNESS OF BREATH; Start 01/19/19 at 16:15 Citalopram Hydrobromide (CeleXA) 20 mg DAILY PO Last administered on 01/20/19at 09:00; Start 01/20/19 at 09:00 Cyclobenzaprine HCl (Flexeril) 10 mg TID PO Last administered on 01/20/19at 09:00; Start 01/19/19 at 21:00 Diphenhydramine HCl (Benadryl) 25 mg PRN Q6HRS PRN PO ITCHING Last administered on 01/19/19at 23:18; Start 01/19/19 at 16:15 Albuterol/ Ipratropium (Duoneb) 3 ml RTQID NEB Last administered on 01/20/19at 06:57; Start 01/19/19 at 16:30 Nicotine (Nicoderm Cq 21mg) 1 patch DAILY TD Last administered on 01/20/19at 09:00; Start 01/19/19 at 17:00 Senna/Docusate Sodium (Senna Plus) 1 tab BID PO Last administered on 01/19/19at 20:59; Start 01/19/19 at 21:00 Non-Formulary Medication (Fluticasone/ Salmeterol (Advair 250-50 Diskus)) 1 puff BID IH ; Start 01/19/19 at 21:00; Status UNV Gabapentin (Neurontin) 600 mg TID PO Last administered on 01/20/19at 09:00; Start 01/19/19 at 21:00 Lorazepam (Ativan) 2 mg BID PO Last administered on 01/20/19at 08:59; Start 01/19/19 at 21:00 Pantoprazole Sodium (Protonix) 40 mg DAILYAC PO ; Start 01/20/19 at 07:30 Budesonide (Pulmicort) 0.5 mg RTBID NEB Last administered on 01/20/19at 06:58; Start 01/19/19 at 20:00 Triamcinolone Acetonide (Kenalog 0.1%) 1 jasen PRN BID PRN TP itching; Start 01/20/19 at 09:45 Active Scripts Active Reported Benadryl (Diphenhydramine Hcl) 25 Mg Capsule 25 Mg PO Q6HRS PRN Senokot-S Tablet (Sennosides/Docusate Sodium) 1 Each Tablet 1 Tab PO BID 30 Days Proair Hfa (Albuterol Sulfate) 8.5 Gm Hfa.aer.ad 1 Puff INH PRN Q6HRS PRN Protonix (Pantoprazole Sodium) 20 Mg Tablet.dr 40 Mg PO DAILY NICODERM CQ 21mg (Nicotine) 1 Each Patch.td24 1 Patch TP DAILY Ativan (Lorazepam) 2 Mg Tablet 2 Mg PO BID Gabapentin 600 Mg Tablet 600 Mg PO TID Cyclobenzaprine Hcl 10 Mg Tablet 1 Tab PO TID Celexa (Citalopram Hydrobromide) 20 Mg Tablet 1 Tab PO DAILY Duoneb 0.5-3(2.5) Mg/3 Ml (Albuterol/Ipratropium) 3 Ml Ampul.neb 3 Ml NEB QID Advair 250-50 Diskus (Fluticasone/Salmeterol) 1 Each Disk.w.dev 1 Puff IH BID Tylenol Extra Strength (Acetaminophen) 500 Mg Tablet 500 Mg PO Q6HRS PRN Allergies Allergies: Coded Allergies: clonazepam (Verified Adverse Reaction, Unknown, Nausea and Vomiting, 01/19/19) pregabalin (Verified Adverse Reaction, Unknown, 01/19/19) DIZZINESS ROS General: No: Chills, Other (fevers) PSYCHOLOGICAL ROS: No: Anxiety, Depression Eyes: No Blurry vision, No Double vision HEENT: No: Heacaches, Sore Throat Hematological and Lymphatic: No: Bleeding Problems, Blood Clots Respiratory: No: Cough, Shortness of breath Cardiovascular: No Chest Pain, No Palpitations Gastrointestinal: Yes Other (see hpi) Genitourinary: No Dysuria, No Hematuria Musculoskeletal: Yes Joint Pain, Yes Muscle Pain Neurological: No Impaired Coord/balance, No Numbness/Tingling Skin: Yes Other (rash to LEs) Physical Exam General: Alert, Oriented X3, Cooperative, No acute distress HEENT: Atraumatic, PERRLA Lungs: Clear to auscultation, Normal air movement Heart: Regular rate, Normal S1, Normal S2 Abdomen: Soft, Other (diffusely tender to lower abdomen, noted umb hernia fullness, tender on exam) Skin: No significant lesion Neuro: Normal speech, Sensation intact Psych/Mental Status: Mental status NL, Mood NL MUSCULOSKELETAL: No deformity, No swelling Vitals VITALS Vital Signs Date Time Temp Pulse Resp B/P (MAP) Pulse Ox O2 Delivery O2 Flow Rate FiO2 01/20/19 09:02 Room Air 01/20/19 07:00 97.6 99 18 113/59 (77 89 97.6 Labs Labs Laboratory Tests Test 01/19/19 10:04 01/19/19 10:50 Urine Collection Type Unknown Urine Color Yellow Urine Clarity Cloudy Urine pH 5.0 Urine Specific [place] 1.020 Urine Protein Negative mg/dL (NEG-TRACE) Urine Glucose (UA) Negative mg/dL (NEG) Urine Ketones (Stick) Negative mg/dL (NEG) Urine Blood Moderate (NEG) Urine Nitrite Negative (NEG) Urine Bilirubin Small (NEG) Urine Urobilinogen Dipstick 0.2 mg/dL (0.2 mg/dL) Urine Leukocyte Esterase Negative (NEG) Urine RBC 1-2 /HPF (0-2) Urine WBC Occ /HPF (0-4) Urine Squamous Epithelial Cells Many /LPF Urine Bacteria Few /HPF (0-FEW) Urine Mucus Marked /LPF White Blood Count 14.2 x10^3/uL (4.0-11.0) Red Blood Count 5.46 x10^6/uL (3.50-5.40) Hemoglobin 16.5 g/dL (12.0-15.5) Hematocrit 49.0 % (36.0-47.0) Mean Corpuscular Volume 90 fL (79-100) Mean Corpuscular Hemoglobin 30 pg (25-35) Mean Corpuscular Hemoglobin Concent 34 g/dL (31-37) Red Cell Distribution Width 14.8 % (11.5-14.5) Platelet Count 346 x10^3/uL (140-400) Neutrophils (%) (Auto) 75 % (31-73) Lymphocytes (%) (Auto) 21 % (24-48) Monocytes (%) (Auto) 3 % (0-9) Eosinophils (%) (Auto) 0 % (0-3) Basophils (%) (Auto) 0 % (0-3) Neutrophils # (Auto) 10.7 x10^3/uL (1.8-7.7) Lymphocytes # (Auto) 3.0 x10^3/uL (1.0-4.8) Monocytes # (Auto) 0.5 x10^3/uL (0.0-1.1) Eosinophils # (Auto) 0.0 x10^3/uL (0.0-0.7) Basophils # (Auto) 0.0 x10^3/uL (0.0-0.2) Sodium Level 139 mmol/L (136-145) Potassium Level 4.1 mmol/L (3.5-5.1) Chloride Level 100 mmol/L (98-107) Carbon Dioxide Level 27 mmol/L (21-32) Anion Gap 12 (6-14) Blood Urea Nitrogen 10 mg/dL (7-20) Creatinine 0.9 mg/dL (0.6-1.0) Estimated GFR (Cockcroft-Gault) 65.5 BUN/Creatinine Ratio 11 (6-20) Glucose Level 109 mg/dL (70-99) Calcium Level 9.6 mg/dL (8.5-10.1) Magnesium Level 1.9 mg/dL (1.8-2.4) Total Bilirubin 0.5 mg/dL (0.2-1.0) Aspartate Amino Transf (AST/SGOT) 28 U/L (15-37) Alanine Aminotransferase (ALT/SGPT) 37 U/L (14-59) Alkaline Phosphatase 115 U/L (46-116) Total Protein 8.4 g/dL (6.4-8.2) Albumin 3.7 g/dL (3.4-5.0) Albumin/Globulin Ratio 0.8 (1.0-1.7) Lipase 119 U/L (73-393) Laboratory Tests Test 01/19/19 10:04 01/19/19 10:50 Urine Collection Type Unknown Urine Color Yellow Urine Clarity Cloudy Urine pH 5.0 Urine Specific [place] 1.020 Urine Protein Negative mg/dL (NEG-TRACE) Urine Glucose (UA) Negative mg/dL (NEG) Urine Ketones (Stick) Negative mg/dL (NEG) Urine Blood Moderate (NEG) Urine Nitrite Negative (NEG) Urine Bilirubin Small (NEG) Urine Urobilinogen Dipstick 0.2 mg/dL (0.2 mg/dL) Urine Leukocyte Esterase Negative (NEG) Urine RBC 1-2 /HPF (0-2) Urine WBC Occ /HPF (0-4) Urine Squamous Epithelial Cells Many /LPF Urine Bacteria Few /HPF (0-FEW) Urine Mucus Marked /LPF White Blood Count 14.2 x10^3/uL (4.0-11.0) Red Blood Count 5.46 x10^6/uL (3.50-5.40) Hemoglobin 16.5 g/dL (12.0-15.5) Hematocrit 49.0 % (36.0-47.0) Mean Corpuscular Volume 90 fL (79-100) Mean Corpuscular Hemoglobin 30 pg (25-35) Mean Corpuscular Hemoglobin Concent 34 g/dL (31-37) Red Cell Distribution Width 14.8 % (11.5-14.5) Platelet Count 346 x10^3/uL (140-400) Neutrophils (%) (Auto) 75 % (31-73) Lymphocytes (%) (Auto) 21 % (24-48) Monocytes (%) (Auto) 3 % (0-9) Eosinophils (%) (Auto) 0 % (0-3) Basophils (%) (Auto) 0 % (0-3) Neutrophils # (Auto) 10.7 x10^3/uL (1.8-7.7) Lymphocytes # (Auto) 3.0 x10^3/uL (1.0-4.8) Monocytes # (Auto) 0.5 x10^3/uL (0.0-1.1) Eosinophils # (Auto) 0.0 x10^3/uL (0.0-0.7) Basophils # (Auto) 0.0 x10^3/uL (0.0-0.2) Sodium Level 139 mmol/L (136-145) Potassium Level 4.1 mmol/L (3.5-5.1) Chloride Level 100 mmol/L (98-107) Carbon Dioxide Level 27 mmol/L (21-32) Anion Gap 12 (6-14) Blood Urea Nitrogen 10 mg/dL (7-20) Creatinine 0.9 mg/dL (0.6-1.0) Estimated GFR (Cockcroft-Gault) 65.5 BUN/Creatinine Ratio 11 (6-20) Glucose Level 109 mg/dL (70-99) Calcium Level 9.6 mg/dL (8.5-10.1) Magnesium Level 1.9 mg/dL (1.8-2.4) Total Bilirubin 0.5 mg/dL (0.2-1.0) Aspartate Amino Transf (AST/SGOT) 28 U/L (15-37) Alanine Aminotransferase (ALT/SGPT) 37 U/L (14-59) Alkaline Phosphatase 115 U/L (46-116) Total Protein 8.4 g/dL (6.4-8.2) Albumin 3.7 g/dL (3.4-5.0) Albumin/Globulin Ratio 0.8 (1.0-1.7) Lipase 119 U/L (73-393) Assessment/Plan Assessment/Plan umbo hernia, fat containing--poor surgical candidate and poor healing with hx of tobacco use and BMI 38.3 will review with FABIOLA Avila MD 01/20/19 2229: CONSULT Assessment/Plan Assessment/Plan saw patient in her room pre op and again in the holding area explained risks of repair including but not limited to bleeding, infection, injury to abdominal contents she will proceed Thanks for consult BOAZ MAST APRN Jan 20, 2019 10:04 FABIOLA VELEZ MD Jan 20, 2019 16:15
[2019-01-20 10:05] LABS: BASO # 0.1 x10^3/uL (0.0-0.2); BASO % 0 % (0-3); EOS % 0 % (0-3); HEMATOCRIT 42.9 % (36.0-47.0); HEMOGLOBIN 14.3 g/dL (12.0-15.5); LYMPH # 2.2 x10^3/uL (1.0-4.8); LYMPH % 14 % (24-48); MEAN CORPUSCULAR HEMOGLOBIN 30 pg (25-35); MEAN CORPUSCULAR HGB CONC 33 g/dL (31-37); MEAN CORPUSCULAR VOLUME 91 fL (79-100); MONO # 0.6 x10^3/uL (0.0-1.1); MONO % 4 % (0-9); NEUT # 12.8 x10^3/uL (1.8-7.7); NEUT % 82 % (31-73); PLATELET COUNT 313 x10^3/uL (140-400); RED BLOOD COUNT 4.74 x10^6/uL (3.50-5.40); RED CELL DISTRIBUTION WIDTH 15.1 % (11.5-14.5); WHITE BLOOD COUNT 15.7 x10^3/uL (4.0-11.0)
--- NOTE | 2019-01-20 11:19 | NUR ---
SS following for discharge planning. SS reviewed pt chart. Pt is self pay pt. HCFS following for self pay status. Pt is from home and is currently on room air. SS will continue to follow for discharge planning.
[2019-01-20] MEDS ORDERED: IV RINGERS,LACTATED 1000ML 1,000 ML IV SCH (13:47)
[2019-01-20] MEDS ORDERED: BUPIVACAINE MPF 0.5% 30 ML VIAL. ONE (13:52)
[2019-01-20] MEDS ORDERED: LIDOCAINE 1% PF 2 ML VIAL. ID PRN (14:00)
[2019-01-20] MEDS ORDERED: fentaNYL PF VIAL 100 MCG/2 ML VIAL IV PRN (14:00)
[2019-01-20] MEDS ORDERED: ceFAZolin SODIUM 3 GM in IV DEXTROSE 5% 100ML 100 ML IV PRN (14:00)
[2019-01-20] MEDS ORDERED: PROCHLORPERAZINE 10 MG/2 ML VIAL. IV PRN (14:00)
[2019-01-20] MEDS ORDERED: ONDANSETRON PF 4 MG/2 ML VIAL. IV PRN ×2 (14:00→16:15)
[2019-01-20] MEDS ORDERED: MORPHINE SULFATE 2 MG/ML VIAL. IV PRN (14:00)
[2019-01-20] MEDS ORDERED: HYDROmorphone 2 MG/ML VIAL IV PRN (14:00)
[2019-01-20] MEDS ORDERED: GLYCOPYRROLATE 1 MG/5 ML VIAL. ONE (14:25)
[2019-01-20] MEDS ORDERED: ROCURONIUM 50 MG/5 ML VIAL. ONE (14:25)
[2019-01-20] MEDS ORDERED: fentaNYL PF VIAL 100 MCG/2 ML VIAL ONE ×2 (14:26→16:16)
[2019-01-20] MEDS ORDERED: NEOSTIGMINE METHYLSULFATE 5 MG/5 ML SYRINGE. ONE (14:26)
[2019-01-20] MEDS ORDERED: DEXAMETHASONE SOD PHOS 4 MG/ML VIAL ONE (14:29)
[2019-01-20] MEDS ORDERED: KETOROLAC 30 MG/ML VIAL. ONE (14:29)
[2019-01-20] MEDS ORDERED: LIDOCAINE 2% PF 5 ML VIAL. ONE (14:29)
[2019-01-20] MEDS ORDERED: PROPOFOL 20 ML IV ONE (14:29)
[2019-01-20] MEDS ORDERED: SEVOFLURANE 61 TO 120 MINUTES. IH ONE (14:29)
[2019-01-20] MEDS ORDERED: ONDANSETRON PF 4 MG/2 ML VIAL. ONE (14:29)
[2019-01-20] MEDS ORDERED: FAMOTIDINE 20 MG/2 ML VIAL ONE (15:30)
[2019-01-20] MEDS: IV NORMAL SALINE 1000ML BAG 1,000 ML IV SCH (16:02)
--- NOTE | 2019-01-20 16:13 | PDOC ---
BRIEF OPERATIVE NOTE Date: Jan 20, 2019 Pre-Op Diagnosis incarcerated umbilical hernia Post-Op Diagnosis same Procedure Performed primary repair Surgeon Marcelino Anesthesia Type: General Blood Loss 10cc IV Fluid 800cc Specimens Obtained hernia sack with incarcerated contents Findings incarcerated omentum, small defect Complications none Operative Note Wk # [id number] FABIOLA VELEZ MD Jan 20, 2019 16:13
[2019-01-20] MEDS ORDERED: NALOXONE 0.4 MG/ML VIAL. IV PRN (16:15)
[2019-01-20] MEDS ORDERED: 0.9 % SODIUM CHLORIDE 10 ML DISP.SYRIN. IV PRN (16:15)
[2019-01-20] MEDS ORDERED: oxyCODONE/APAP 5/325 1 TAB TABLET PO PRN (16:15)
--- NOTE | 2019-01-20 16:25 | OP ---
DATE OF SURGERY: 01/20/2019 PREOPERATIVE DIAGNOSIS: Incarcerated umbilical hernia. POSTOPERATIVE DIAGNOSIS: Incarcerated umbilical hernia. PROCEDURE: Primary repair. SURGEON: Roddy Velez MD ANESTHESIA: General endotracheal. ESTIMATED BLOOD LOSS: 10 mL. INTRAVENOUS FLUIDS: 800 mL. INDICATIONS: The patient is a 53-year-old obese female with abdominal pain and CT evidence of an incarcerated umbilical hernia containing omentum. She is brought for repair. OPERATIVE FINDINGS: The hernia sac contained incarcerated omentum. No bowel was present. DESCRIPTION OF PROCEDURE: The patient brought to the operating suite, given a general endotracheal anesthetic and the abdomen prepped and draped in usual sterile fashion. A 0.5% Marcaine was injected in an infraumbilical fashion. Incision made and dissection carried down to the anterior sheath. Hernia was encircled with a Yaya drain placed around it and the overlying skin freed from the hernia. Sac was opened to expose incarcerated contents and this was excised using the LigaSure. The small defect was then closed with interrupted inverted [id number] 0 PDS. The umbilical skin tacked to the underlying repair. Correct sponge count had been obtained prior to closure. Skin incisions closed with subcuticular 4-0 Monocryl. Steri-Strips and sterile dressing applied. Abdominal binder placed. The patient awakened from her anesthetic and taken to the recovery room in satisfactory condition. RODDY VELEZ MD DR: GUANACO/maame JOB#: [id number] / [id number]
[2019-01-20] MEDS: POTASSIUM CL 20MEQ-0.45% NACL 1,000 ML IV SCH (17:20)
[2019-01-20] MEDS: oxyCODONE/APAP 5/325 1 TAB TABLET PO PRN (19:10)
[2019-01-20] MEDS: DOCUSATE SODIUM 100 MG CAPSULE. PO SCH (20:33)
[2019-01-20] MEDS: diphenhydrAMINE HCL 25 MG CAPSULE PO PRN (20:34)
[2019-01-20] MEDS: HYDROmorphone 2 MG/ML VIAL IV PRN (20:35)
[2019-01-21 03:00] VITALS: BP 106/73
[2019-01-21] MEDS: oxyCODONE/APAP 5/325 1 TAB TABLET PO PRN ×3 (04:52→21:30)
[2019-01-21 05:01] LABS: BASO % 0 % (0-3); EOS % 0 % (0-3); HEMATOCRIT 39.9 % (36.0-47.0); HEMOGLOBIN 13.3 g/dL (12.0-15.5); LYMPH # 1.8 x10^3/uL (1.0-4.8); LYMPH % 12 % (24-48); MEAN CORPUSCULAR HEMOGLOBIN 31 pg (25-35); MEAN CORPUSCULAR HGB CONC 33 g/dL (31-37); MEAN CORPUSCULAR VOLUME 91 fL (79-100); MONO # 0.6 x10^3/uL (0.0-1.1); MONO % 4 % (0-9); NEUT # 12.4 x10^3/uL (1.8-7.7); NEUT % 84 % (31-73); PLATELET COUNT 306 x10^3/uL (140-400); RED BLOOD COUNT 4.37 x10^6/uL (3.50-5.40); RED CELL DISTRIBUTION WIDTH 15.2 % (11.5-14.5); WHITE BLOOD COUNT 14.8 x10^3/uL (4.0-11.0)
[2019-01-21] MEDS: PANTOPRAZOLE 40 MG TABLET.DR. PO SCH (05:39)
[2019-01-21] MEDS: ENOXAPARIN 40 MG/0.4 ML SYRINGE. SQ SCH (05:40)
[2019-01-21] MEDS: POTASSIUM CL 20MEQ-0.45% NACL 1,000 ML IV SCH ×2 (06:31→21:34)
[2019-01-21] MEDS: HYDROmorphone 2 MG/ML VIAL IV PRN ×4 (06:32→22:31)
[2019-01-21 07:00] VITALS: BP 119/65
[2019-01-21] MEDS: IPRATRPIUM/ALBUTEROL 0.5/2.5MG 3 ML NEBU. NEB SCH ×4 (07:14→19:57)
[2019-01-21] MEDS: BUDESONIDE 0.5 MG/2 ML NEBU. NEB SCH ×2 (07:14→19:57)
--- NOTE | 2019-01-21 08:01 | PDOC ---
SUBJECTIVE Subjective Pain adequately controlled, but requiring dilaudid in addition to PO meds. Able to tolerate clears. OBJECTIVE Objective Reviewed. Vital Signs Vital Signs Date Time Temp Pulse Resp B/P (MAP) Pulse Ox O2 Delivery O2 Flow Rate FiO2 01/21/19 07:38 92 Room Air 01/21/19 07:16 92 Room Air 01/21/19 07:02 16 Room Air 01/21/19 06:32 20 Room Air 01/21/19 06:15 18 Room Air 01/21/19 04:52 20 Room Air 01/21/19 03:00 97.9 67 18 106/73 (84) 94 Room Air 97.9 01/20/19 23:00 97.5 83 18 98/56 (70) 93 Room Air 97.5 01/20/19 21:45 18 Room Air 01/20/19 20:35 16 Room Air 01/20/19 20:35 16 Room Air 01/20/19 20:30 Room Air 01/20/19 20:06 96 Room Air 01/20/19 20:05 96 Room Air 01/20/19 19:15 90 18 140/74 (96) 93 Room Air 01/20/19 19:10 90 Room Air 01/20/19 18:45 90 139/72 (94) 92 Room Air 01/20/19 18:14 79 146/76 (99) 90 Room Air 01/20/19 18:00 80 159/77 (104) 90 Room Air 01/20/19 17:45 91 161/84 (109) 90 Room Air 01/20/19 17:30 88 140/70 (93) 90 Room Air 01/20/19 17:05 97.5 78 18 129/73 96 Nasal Cannula 3.0 97.5 01/20/19 17:03 18 96 Nasal Cannula 3.0 01/20/19 16:50 97.5 74 18 140/71 96 Nasal Cannula 3 97.5 01/20/19 16:35 97.5 78 18 139/113 97 Simple Mask 10.0 97.5 01/20/19 16:33 18 98 Simple Mask 10.0 01/20/19 16:25 20 99 Simple Mask 10.0 01/20/19 16:20 97.5 78 16 152/81 95 Simple Mask 10 97.5 01/20/19 16:03 97.5 92 20 156/86 98 Simple Mask 10 97.5 01/20/19 16:03 Mask 10 01/20/19 15:20 77 18 147/82 (103) 91 Room Air 01/20/19 14:15 97.6 101 15 141/81 95 Room Air 97.6 01/20/19 11:14 95 Room Air 01/20/19 11:00 97.6 101 18 106/58 (74) 92 Room Air 97.6 01/20/19 10:09 Room Air 01/20/19 09:02 Room Air I & O Intake and Output 01/21/19 07:00 Intake Total 1320 ml Output Total 10 ml Balance 1310 ml Intake Oral 420 ml IV Total 900 ml Output Estimated Blood Loss 10 ml # Voids 4 PHYSICAL EXAM Physical Exam Alert, oriented RRR CTAB Abd binder on, dressing c/d/i No edema in lower legs Rash improved ASSESSMENT/PLAN Assessment/Plan Umbilical hernia POD#1 s/p repair Mild leukocytosis, no signs of infection Nonalcoholic fatty liver disease COPD Panic disorder History of renal cell carcinoma Nicotine dependence Autism spectrum disorder Pain control Surgery following COMMENT Lab Laboratory Tests Test 01/20/19 09:35 01/21/19 04:28 White Blood Count 15.7 x10^3/uL (4.0-11.0) 14.8 x10^3/uL (4.0-11.0) Red Blood Count 4.74 x10^6/uL (3.50-5.40) 4.37 x10^6/uL (3.50-5.40) Hemoglobin 14.3 g/dL (12.0-15.5) 13.3 g/dL (12.0-15.5) Hematocrit 42.9 % (36.0-47.0) 39.9 % (36.0-47.0) Mean Corpuscular Volume 91 fL (79-100) 91 fL (79-100) Mean Corpuscular Hemoglobin 30 pg (25-35) 31 pg (25-35) Mean Corpuscular Hemoglobin Concent 33 g/dL (31-37) 33 g/dL (31-37) Red Cell Distribution Width 15.1 % (11.5-14.5) 15.2 % (11.5-14.5) Platelet Count 313 x10^3/uL (140-400) 306 x10^3/uL (140-400) Neutrophils (%) (Auto) 82 % (31-73) 84 % (31-73) Lymphocytes (%) (Auto) 14 % (24-48) 12 % (24-48) Monocytes (%) (Auto) 4 % (0-9) 4 % (0-9) Eosinophils (%) (Auto) 0 % (0-3) 0 % (0-3) Basophils (%) (Auto) 0 % (0-3) 0 % (0-3) Neutrophils # (Auto) 12.8 x10^3/uL (1.8-7.7) 12.4 x10^3/uL (1.8-7.7) Lymphocytes # (Auto) 2.2 x10^3/uL (1.0-4.8) 1.8 x10^3/uL (1.0-4.8) Monocytes # (Auto) 0.6 x10^3/uL (0.0-1.1) 0.6 x10^3/uL (0.0-1.1) Eosinophils # (Auto) 0.0 x10^3/uL (0.0-0.7) 0.0 x10^3/uL (0.0-0.7) Basophils # (Auto) 0.1 x10^3/uL (0.0-0.2) 0.0 x10^3/uL (0.0-0.2) CARYL MESSINA MD Jan 21, 2019 08:01
[2019-01-21] MEDS: LORazepam 1 MG TABLET PO SCH ×2 (08:24→21:29)
[2019-01-21] MEDS: DOCUSATE SODIUM 100 MG CAPSULE. PO SCH ×2 (08:25→21:37)
[2019-01-21] MEDS: CITALOPRAM 20 MG TABLET. PO SCH (08:25)
[2019-01-21] MEDS: GABAPENTIN 300 MG CAPSULE. PO SCH ×3 (08:25→21:29)
[2019-01-21] MEDS: SENNOSIDES/DOCUSATE 8.6/50MG TABLET. PO SCH ×2 (08:25→21:30)
[2019-01-21] MEDS: NICOTINE 21MG PATCH. TD SCH (08:25)
[2019-01-21] MEDS: CYCLOBENZAPRINE 10 MG TABLET. PO SCH ×3 (08:25→21:29)
--- NOTE | 2019-01-21 08:33 | PDOC ---
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/21/19 0833: SURGICAL PROGRESS NOTE Subjective pain with eating--this was occurring prior to surgery incision pain Vital Signs Vital Signs Date Time Temp Pulse Resp B/P (MAP) Pulse Ox O2 Delivery O2 Flow Rate FiO2 01/21/19 08:18 Room Air 01/21/19 07:38 92 01/21/19 07:02 16 01/21/19 03:00 97.9 67 106/73 (84) 97.9 01/20/19 17:05 3.0 I&O Intake and Output 01/21/19 07:00 Intake Total 1320 ml Output Total 10 ml Balance 1310 ml Intake Oral 420 ml IV Total 900 ml Output Estimated Blood Loss 10 ml # Voids 4 General: Alert, Oriented X3, Cooperative, No acute distress Abdomen: Soft, Other (binder in place) Labs Laboratory Tests Test 01/19/19 10:04 01/19/19 10:50 01/20/19 09:35 01/21/19 04:28 Urine Collection Type Unknown Urine Color Yellow Urine Clarity Cloudy Urine pH 5.0 Urine Specific [place] 1.020 Urine Protein Negative mg/dL (NEG-TRACE) Urine Glucose (UA) Negative mg/dL (NEG) Urine Ketones (Stick) Negative mg/dL (NEG) Urine Blood Moderate (NEG) Urine Nitrite Negative (NEG) Urine Bilirubin Small (NEG) Urine Urobilinogen Dipstick 0.2 mg/dL (0.2 mg/dL) Urine Leukocyte Esterase Negative (NEG) Urine RBC 1-2 /HPF (0-2) Urine WBC Occ /HPF (0-4) Urine Squamous Epithelial Cells Many /LPF Urine Bacteria Few /HPF (0-FEW) Urine Mucus Marked /LPF White Blood Count 14.2 x10^3/uL (4.0-11.0) 15.7 x10^3/uL (4.0-11.0) 14.8 x10^3/uL (4.0-11.0) Red Blood Count 5.46 x10^6/uL (3.50-5.40) 4.74 x10^6/uL (3.50-5.40) 4.37 x10^6/uL (3.50-5.40) Hemoglobin 16.5 g/dL (12.0-15.5) 14.3 g/dL (12.0-15.5) 13.3 g/dL (12.0-15.5) Hematocrit 49.0 % (36.0-47.0) 42.9 % (36.0-47.0) 39.9 % (36.0-47.0) Mean Corpuscular Volume 90 fL (79-100) 91 fL (79-100) 91 fL (79-100) Mean Corpuscular Hemoglobin 30 pg (25-35) 30 pg (25-35) 31 pg (25-35) Mean Corpuscular Hemoglobin Concent 34 g/dL (31-37) 33 g/dL (31-37) 33 g/dL (31-37) Red Cell Distribution Width 14.8 % (11.5-14.5) 15.1 % (11.5-14.5) 15.2 % (11.5-14.5) Platelet Count 346 x10^3/uL (140-400) 313 x10^3/uL (140-400) 306 x10^3/uL (140-400) Neutrophils (%) (Auto) 75 % (31-73) 82 % (31-73) 84 % (31-73) Lymphocytes (%) (Auto) 21 % (24-48) 14 % (24-48) 12 % (24-48) Monocytes (%) (Auto) 3 % (0-9) 4 % (0-9) 4 % (0-9) Eosinophils (%) (Auto) 0 % (0-3) 0 % (0-3) 0 % (0-3) Basophils (%) (Auto) 0 % (0-3) 0 % (0-3) 0 % (0-3) Neutrophils # (Auto) 10.7 x10^3/uL (1.8-7.7) 12.8 x10^3/uL (1.8-7.7) 12.4 x10^3/uL (1.8-7.7) Lymphocytes # (Auto) 3.0 x10^3/uL (1.0-4.8) 2.2 x10^3/uL (1.0-4.8) 1.8 x10^3/uL (1.0-4.8) Monocytes # (Auto) 0.5 x10^3/uL (0.0-1.1) 0.6 x10^3/uL (0.0-1.1) 0.6 x10^3/uL (0.0-1.1) Eosinophils # (Auto) 0.0 x10^3/uL (0.0-0.7) 0.0 x10^3/uL (0.0-0.7) 0.0 x10^3/uL (0.0-0.7) Basophils # (Auto) 0.0 x10^3/uL (0.0-0.2) 0.1 x10^3/uL (0.0-0.2) 0.0 x10^3/uL (0.0-0.2) Sodium Level 139 mmol/L (136-145) Potassium Level 4.1 mmol/L (3.5-5.1) Chloride Level 100 mmol/L (98-107) Carbon Dioxide Level 27 mmol/L (21-32) Anion Gap 12 (6-14) Blood Urea Nitrogen 10 mg/dL (7-20) Creatinine 0.9 mg/dL (0.6-1.0) Estimated GFR (Cockcroft-Gault) 65.5 BUN/Creatinine Ratio 11 (6-20) Glucose Level 109 mg/dL (70-99) Calcium Level 9.6 mg/dL (8.5-10.1) Magnesium Level 1.9 mg/dL (1.8-2.4) Total Bilirubin 0.5 mg/dL (0.2-1.0) Aspartate Amino Transf (AST/SGOT) 28 U/L (15-37) Alanine Aminotransferase (ALT/SGPT) 37 U/L (14-59) Alkaline Phosphatase 115 U/L (46-116) Total Protein 8.4 g/dL (6.4-8.2) Albumin 3.7 g/dL (3.4-5.0) Albumin/Globulin Ratio 0.8 (1.0-1.7) Lipase 119 U/L (73-393) Laboratory Tests Test 01/20/19 09:35 01/21/19 04:28 White Blood Count 15.7 x10^3/uL (4.0-11.0) 14.8 x10^3/uL (4.0-11.0) Red Blood Count 4.74 x10^6/uL (3.50-5.40) 4.37 x10^6/uL (3.50-5.40) Hemoglobin 14.3 g/dL (12.0-15.5) 13.3 g/dL (12.0-15.5) Hematocrit 42.9 % (36.0-47.0) 39.9 % (36.0-47.0) Mean Corpuscular Volume 91 fL (79-100) 91 fL (79-100) Mean Corpuscular Hemoglobin 30 pg (25-35) 31 pg (25-35) Mean Corpuscular Hemoglobin Concent 33 g/dL (31-37) 33 g/dL (31-37) Red Cell Distribution Width 15.1 % (11.5-14.5) 15.2 % (11.5-14.5) Platelet Count 313 x10^3/uL (140-400) 306 x10^3/uL (140-400) Neutrophils (%) (Auto) 82 % (31-73) 84 % (31-73) Lymphocytes (%) (Auto) 14 % (24-48) 12 % (24-48) Monocytes (%) (Auto) 4 % (0-9) 4 % (0-9) Eosinophils (%) (Auto) 0 % (0-3) 0 % (0-3) Basophils (%) (Auto) 0 % (0-3) 0 % (0-3) Neutrophils # (Auto) 12.8 x10^3/uL (1.8-7.7) 12.4 x10^3/uL (1.8-7.7) Lymphocytes # (Auto) 2.2 x10^3/uL (1.0-4.8) 1.8 x10^3/uL (1.0-4.8) Monocytes # (Auto) 0.6 x10^3/uL (0.0-1.1) 0.6 x10^3/uL (0.0-1.1) Eosinophils # (Auto) 0.0 x10^3/uL (0.0-0.7) 0.0 x10^3/uL (0.0-0.7) Basophils # (Auto) 0.1 x10^3/uL (0.0-0.2) 0.0 x10^3/uL (0.0-0.2) Problem List Problems Medical Problems: (1) Umbilical hernia Status: Acute Assessment/Plan s/p umbo hernia repair bloating/pain after meals--occurring prior to surgery--seems unrelated to hernia--may need GI FU as outpt if continues advance to [place] diet FABIOLA VELEZ MD 01/22/19 0913: SURGICAL PROGRESS NOTE Assessment/Plan LATE ENTRY patient seen yesterday afternoon agree with above BOAZ [employer] Jan 21, 2019 08:33 FABIOLA VELEZ MD Jan 22, 2019 09:13
[2019-01-21 10:28] LABS: CREATININE 0.8 mg/dL (0.6-1.0)
[2019-01-21 11:00] VITALS: BP 96/54
[2019-01-21 15:00] VITALS: BP 118/59
[2019-01-21] MEDS: IV NORMAL SALINE 1000ML BAG 1,000 ML IV SCH (16:02)
[2019-01-21 19:25] VITALS: BP 109/65
[2019-01-21] MEDS: diphenhydrAMINE HCL 25 MG CAPSULE PO PRN (21:29)
[2019-01-21 23:10] VITALS: BP 102/52
[2019-01-22 03:00] VITALS: BP 90/39
[2019-01-22] MEDS: PANTOPRAZOLE 40 MG TABLET.DR. PO SCH (06:17)
[2019-01-22] MEDS: ENOXAPARIN 40 MG/0.4 ML SYRINGE. SQ SCH (06:17)
[2019-01-22] MEDS: oxyCODONE/APAP 5/325 1 TAB TABLET PO PRN (06:18)
[2019-01-22 07:00] VITALS: BP 117/57
[2019-01-22] MEDS: IPRATRPIUM/ALBUTEROL 0.5/2.5MG 3 ML NEBU. NEB SCH (08:13)
[2019-01-22] MEDS: BUDESONIDE 0.5 MG/2 ML NEBU. NEB SCH (08:13)
[2019-01-22] MEDS ORDERED: TRIA15OI TP (08:45)
--- NOTE | 2019-01-22 08:50 | PDOC3 ---
Discharge Summary Date of Admission: Jan 19, 2019 Date of Discharge: Jan 22, 2019 Follow-Up: 3-5 days Admitting Diagnosis comment: Abdominal pain Incarcerated umbilical hernia FINAL DIAGNOSIS Status post umbilical hernia repair Brief Hospital Course Ms. Beatty is a 53-year-old female with a past medical history of autism spectrum disorder, COPD, nonalcoholic fatty liver disease, panic disorder, history of renal cell carcinoma, who presented to the emergency room for increasing umbilical pain for the last 2-3 weeks. She has a history of a laparoscopic cholecystectomy by Dr. Benson 4-5 months ago. She appears to have developed the umbilical hernia after that surgery. She was admitted for umbilical hernia repair, which occurred on 01/20/19. Her postoperative course has been uncomplicated. Her pain is adequately managed with PO medications. She will follow up with surgery as directed. We will follow up in clinic with Dr. Castanon or myself on Sunday or Sunday of next week. During admission she was no gretta to have a nondescript erythematous pruritic rash that was adequately treated with triamcinolone 0.1% cream. She will get a prescription to use this at home, along with Zyrtec or Claritin and ranitidine for itching and hives. No other home medications of been changed. Discharge Medications Active Triamcinolone Acetonide 0.1% Oint (Triamcinolone Acetonide) 15 Gm Oint...g. 1 Lisa TP PRN BID PRN 30 Days Reported Benadryl (Diphenhydramine Hcl) 25 Mg Capsule 25 Mg PO Q6HRS PRN Senokot-S Tablet (Sennosides/Docusate Sodium) 1 Each Tablet 1 Tab PO BID 30 Days Proair Hfa (Albuterol Sulfate) 8.5 Gm Hfa.aer.ad 1 Puff INH PRN Q6HRS PRN Protonix (Pantoprazole Sodium) 20 Mg Tablet.dr 40 Mg PO DAILY NICODERM CQ 21mg (Nicotine) 1 Each Patch.td24 1 Patch TP DAILY Ativan (Lorazepam) 2 Mg Tablet 2 Mg PO BID Gabapentin 600 Mg Tablet 600 Mg PO TID Cyclobenzaprine Hcl 10 Mg Tablet 1 Tab PO TID Celexa (Citalopram Hydrobromide) 20 Mg Tablet 1 Tab PO DAILY Duoneb 0.5-3(2.5) Mg/3 Ml (Albuterol/Ipratropium) 3 Ml Ampul.neb 3 Ml NEB QID Advair 250-50 Diskus (Fluticasone/Salmeterol) 1 Each Disk.w.dev 1 Puff IH BID Tylenol Extra Strength (Acetaminophen) 500 Mg Tablet 500 Mg PO Q6HRS PRN Vital Signs Vital Signs Date Time Temp Pulse Resp B/P (MAP) Pulse Ox O2 Delivery O2 Flow Rate FiO2 01/22/19 08:16 94 Room Air 01/22/19 07:20 22 01/22/19 07:00 98.2 97 117/57 (77) 98.2 Labs Laboratory Tests Test 01/20/19 09:35 01/21/19 04:28 White Blood Count 15.7 x10^3/uL (4.0-11.0) 14.8 x10^3/uL (4.0-11.0) Red Blood Count 4.74 x10^6/uL (3.50-5.40) 4.37 x10^6/uL (3.50-5.40) Hemoglobin 14.3 g/dL (12.0-15.5) 13.3 g/dL (12.0-15.5) Hematocrit 42.9 % (36.0-47.0) 39.9 % (36.0-47.0) Mean Corpuscular Volume 91 fL (79-100) 91 fL (79-100) Mean Corpuscular Hemoglobin 30 pg (25-35) 31 pg (25-35) Mean Corpuscular Hemoglobin Concent 33 g/dL (31-37) 33 g/dL (31-37) Red Cell Distribution Width 15.1 % (11.5-14.5) 15.2 % (11.5-14.5) Platelet Count 313 x10^3/uL (140-400) 306 x10^3/uL (140-400) Neutrophils (%) (Auto) 82 % (31-73) 84 % (31-73) Lymphocytes (%) (Auto) 14 % (24-48) 12 % (24-48) Monocytes (%) (Auto) 4 % (0-9) 4 % (0-9) Eosinophils (%) (Auto) 0 % (0-3) 0 % (0-3) Basophils (%) (Auto) 0 % (0-3) 0 % (0-3) Neutrophils # (Auto) 12.8 x10^3/uL (1.8-7.7) 12.4 x10^3/uL (1.8-7.7) Lymphocytes # (Auto) 2.2 x10^3/uL (1.0-4.8) 1.8 x10^3/uL (1.0-4.8) Monocytes # (Auto) 0.6 x10^3/uL (0.0-1.1) 0.6 x10^3/uL (0.0-1.1) Eosinophils # (Auto) 0.0 x10^3/uL (0.0-0.7) 0.0 x10^3/uL (0.0-0.7) Basophils # (Auto) 0.1 x10^3/uL (0.0-0.2) 0.0 x10^3/uL (0.0-0.2) Blood Urea Nitrogen 12 mg/dL (7-20) Creatinine 0.8 mg/dL (0.6-1.0) Estimated GFR (Cockcroft-Gault) 75.0 Allergies Allergies Coded Allergies Type Severity Reaction Last Updated Verified clonazepam Adverse Reaction Unknown Nausea and Vomiting 01/19/19 Yes pregabalin Adverse Reaction Unknown 01/19/19 Yes Disposition/Orders: D/C to Home CARYL MESSINA MD Jan 22, 2019 08:50
[2019-01-22] MEDS ORDERED: OXYC1TAB15 PO (08:52)
--- NOTE | 2019-01-22 08:57 | PDOC ---
SURGICAL PROGRESS NOTE Subjective eating a little better, no emesis pain managed Vital Signs Vital Signs Date Time Temp Pulse Resp B/P (MAP) Pulse Ox O2 Delivery O2 Flow Rate FiO2 01/22/19 08:16 94 Room Air 01/22/19 07:20 22 01/22/19 07:00 98.2 97 117/57 (77) 98.2 I&O Intake and Output 01/22/19 07:00 Intake Total 590 ml Balance 590 ml Intake Oral 590 ml # Voids 4 General: Alert, Oriented X3, Cooperative, No acute distress Abdomen: Soft, Other (ND, dressing dry) Labs Laboratory Tests Test 01/20/19 09:35 01/21/19 04:28 White Blood Count 15.7 x10^3/uL (4.0-11.0) 14.8 x10^3/uL (4.0-11.0) Red Blood Count 4.74 x10^6/uL (3.50-5.40) 4.37 x10^6/uL (3.50-5.40) Hemoglobin 14.3 g/dL (12.0-15.5) 13.3 g/dL (12.0-15.5) Hematocrit 42.9 % (36.0-47.0) 39.9 % (36.0-47.0) Mean Corpuscular Volume 91 fL (79-100) 91 fL (79-100) Mean Corpuscular Hemoglobin 30 pg (25-35) 31 pg (25-35) Mean Corpuscular Hemoglobin Concent 33 g/dL (31-37) 33 g/dL (31-37) Red Cell Distribution Width 15.1 % (11.5-14.5) 15.2 % (11.5-14.5) Platelet Count 313 x10^3/uL (140-400) 306 x10^3/uL (140-400) Neutrophils (%) (Auto) 82 % (31-73) 84 % (31-73) Lymphocytes (%) (Auto) 14 % (24-48) 12 % (24-48) Monocytes (%) (Auto) 4 % (0-9) 4 % (0-9) Eosinophils (%) (Auto) 0 % (0-3) 0 % (0-3) Basophils (%) (Auto) 0 % (0-3) 0 % (0-3) Neutrophils # (Auto) 12.8 x10^3/uL (1.8-7.7) 12.4 x10^3/uL (1.8-7.7) Lymphocytes # (Auto) 2.2 x10^3/uL (1.0-4.8) 1.8 x10^3/uL (1.0-4.8) Monocytes # (Auto) 0.6 x10^3/uL (0.0-1.1) 0.6 x10^3/uL (0.0-1.1) Eosinophils # (Auto) 0.0 x10^3/uL (0.0-0.7) 0.0 x10^3/uL (0.0-0.7) Basophils # (Auto) 0.1 x10^3/uL (0.0-0.2) 0.0 x10^3/uL (0.0-0.2) Blood Urea Nitrogen 12 mg/dL (7-20) Creatinine 0.8 mg/dL (0.6-1.0) Estimated GFR (Cockcroft-Gault) 75.0 Problem List Problems Medical Problems: (1) Umbilical hernia Status: Acute Assessment/Plan s/p umbo repair ok to send home Fu 1 week pain script electronically sent BOAZ MAST APRN Jan 22, 2019 08:56
[2019-01-22] MEDS: GABAPENTIN 300 MG CAPSULE. PO SCH (09:08)
[2019-01-22] MEDS: CYCLOBENZAPRINE 10 MG TABLET. PO SCH (09:08)
[2019-01-22] MEDS: SENNOSIDES/DOCUSATE 8.6/50MG TABLET. PO SCH (09:09)
[2019-01-22] MEDS: DOCUSATE SODIUM 100 MG CAPSULE. PO SCH (09:09)
[2019-01-22] MEDS: CITALOPRAM 20 MG TABLET. PO SCH (09:09)
[2019-01-22] MEDS: LORazepam 1 MG TABLET PO SCH (09:09)
[2019-01-22] MEDS: NICOTINE 21MG PATCH. TD SCH (09:09)
--- NOTE | 2019-01-22 10:22 | NUR ---
SW following for discharge planning. Chart reviewed, discussed with RN. RN advised no SW needs and pt is discharging home with self care this morning.
--- NOTE | 2019-01-22 10:26 | NUR ---
Discharge instructions and belongings reviewed with patient verbalized understanding. Patient was escorted out via wheelchair by Yumiko KNIGHT accompanied by her .
--- NOTE | 2019-01-22 18:06 | PATHOLOGY ---
[facility] Accession Number: [id number] . 01 Material submitted: . hernia - HERNIA SAC WITH INCARCERATED CONTENTS . 01 Clinical history: . Incarcerated umbilical hernia . 02 Diagnosis: Segment of mesothelial-lined fibromembranous and fibroadipose tissue, umbilical hernia repair: - Hernia sac showing focal chronic inflammation, with contents of fibroadipose tissue showing congestion and focal recent hemorrhage. 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 02 Electronically signed: . Amandeep Waddell MD, Pathologist NPI- [id number] . 01 Gross description: . The specimen is received in formalin, labeled "Terri Beatty, hernia sac with incarcerated contents", consists of a focally disrupted fibroadipose sac measuring 4.0 x 3.8 x 2.2 cm. No discrete nodules or necrosis identified. Representatively submitted in A1-A2. ([facility]; 01/21/2019) [facility] 01/21/2019 1933 Local . 02 Pathologist provided ICD-10: K42.9 . 02 CPT . 335130 Specimen Comment: A courtesy copy of this report has been sent to Specimen Comment: [phone]. Specimen Comment: Report sent to Performed at: 01 [facility] [address], [place] [id number] MD Prakash Ynag MD Phone: [phone] Performed at: 02 [facility] [address] [place], [place] [id number] MD Amandeep Waddell MD Phone: [phone]
== END 2019-01-22 10:28 | disposition home or self-care (01) | DRG 354 ==
LOC: ER 09:52 → 4 NORTH 13:38
PROVIDERS: ADMIT Family Medicine; ATTEND Family Medicine
PROC: 0WQF0ZZ Repair Abdominal Wall, Open Approach (ICD-10-PCS; principal; 2019-01-20 14:30)
DX: K42.0 Umbilical hernia with obstruction, without gangrene (principal); F84.5 Asperger's syndrome; K21.9 Gastro-esophageal reflux disease without esophagitis; J44.9 Chronic obstructive pulmonary disease, unspecified; F41.9 Anxiety disorder, unspecified; M79.7 Fibromyalgia; F17.200 Nicotine dependence, unspecified, uncomplicated; F41.0 Panic disorder [episodic paroxysmal anxiety]; K76.0 Fatty (change of) liver, not elsewhere classified; L29.9 Pruritus, unspecified; I12.9 Hypertensive chronic kidney disease with stage 1 through stage 4 chronic kidney disease, or unspecified chronic kidney disease; N18.9 Chronic kidney disease, unspecified; G89.29 Other chronic pain; M54.9 Dorsalgia, unspecified; D25.9 Leiomyoma of uterus, unspecified; D72.829 Elevated white blood cell count, unspecified; E66.9 Obesity, unspecified; Z68.39 Body mass index [BMI] 39.0-39.9, adult; Z90.5 Acquired absence of kidney; Z85.528 Personal history of other malignant neoplasm of kidney; Z90.49 Acquired absence of other specified parts of digestive tract; Z88.8 Allergy status to other drugs, medicaments and biological substances
CPT/HCPCS: 36415; 71045; 74177; 80053; 81001; 82565; 83690; 83735; 84520; 85025; 88302; 93005; 94640; 94760; 96361; 96374; 96375; 96376; A7015; J1100; J1170; J1200; J1650; J1885; J2001; J2270; J2405; J2704; J2710; J2930; J3010; J3490; J7030; J7120; J7620; J7626; Q0163; 99285-25; G0378

== ENCOUNTER 2019-02-04 17:55 | Inpatient (IN) | payer SELFPAY ==
[~2019-02-04] VITALS: Ht 157.5 cm; Wt 79.6 kg
[~2019-02-04 17:55] MED LIST changes: +ACET500T33 PO; +ALBU2.5V8 INH; +CITA20TA9 PO; +CYCL10TA2 PO; +DIPH25CA58 PO; +FLUT1DIS3 IH; +GABA600T7 PO; +IPRA3AMP29 NEB; +LORA2TAB89 PO; +NICO1PAT21 TP; +OXYC1TAB15 PO; +PANT20TA2 PO; +SENN-37 PO; +TRIA15OI TP
[2019-02-04] MEDS ORDERED: IV NORMAL SALINE 1000ML BAG 1,000 ML IV SCH (18:22)
[2019-02-04] MEDS ORDERED: ONDANSETRON PF 4 MG/2 ML VIAL. IV ONE (18:30)
--- NOTE | 2019-02-04 18:30 | PHYS DOC ---
Past Medical History Past Medical History: Anxiety, Cancer, COPD, Fibromyalgia, GERD, Other Additional Past Medical Histor: LIVER NODULES,KIDNEY CA,CHRONIC NECK/BACK PAIN,ASPERGERS Past Surgical History: Cholecystectomy, Other Additional Past Surgical Histo: PARTIAL L NEPHRECTOMY Alcohol Use: None Drug Use: None Adult General Chief Complaint Chief Complaint: ABDOMINAL PAIN HPI HPI 54-year-old female presents to the emergency Department complaints of abdominal pain. She states abdominal pain has been ongoing 1 year. She had a cholecystectomy 4-5 months ago, she was admitted here on January 20 with an umbilical hernia with repair and discharged on 01/22. She presents with continued abdominal pain, distention, nausea, decreased urine output, states the pain comes and goes. She's had diarrhea as well. Patient denies any fevers. She called her primary care physician, he recommended her come to the emergency department for further evaluation. Nothing makes her pain worse, nothing makes her pain better. Review of Systems Review of Systems Constitutional: Denies fever or chills [] Eyes: Denies change in visual acuity, redness, or eye pain [] HENT: Denies nasal congestion or sore throat [] Respiratory: intermittent SOB 2/2 COPD Cardiovascular: No additional information not addressed in HPI [] GI: + abdominal pain/distention, + nausea, vomiting, + diarrhea [] : Denies dysuria or hematuria [] Musculoskeletal: Denies back pain or joint pain [] Integument: Denies rash or skin lesions [] Neurologic: Denies headache, focal weakness or sensory changes [] All other systems were reviewed and found to be within normal limits, except as documented in this note. Current Medications Current Medications Current Medications Medications (Trade) Dose Ordered Sig/Nathen Start Time Stop Time Status Last Admin Dose Admin Info (CONTRAST GIVEN -- Rx MONITORING) 1 each PRN DAILY PRN 02/04/19 19:15 02/06/19 19:14 Iohexol (Omnipaque 300 Mg/ml) 75 ml 1X ONCE 02/04/19 19:15 02/04/19 19:16 DC 02/04/19 19:15 75 ML Morphine Sulfate (Morphine Sulfate) 2 mg PRN Q15MIN PRN 02/04/19 18:30 02/05/19 18:29 02/04/19 18:49 2 MG Ondansetron HCl (Zofran) 4 mg 1X ONCE 02/04/19 18:30 02/04/19 18:31 DC 02/04/19 18:47 4 MG Sodium Chloride 1,000 ml @ 1,000 mls/hr Q1H 02/04/19 18:22 02/04/19 19:21 DC 02/04/19 18:47 1,000 MLS/HR Allergies Allergies Allergies Coded Allergies Type Severity Reaction Last Updated Verified clonazepam Adverse Reaction Unknown Nausea and Vomiting 01/19/19 Yes pregabalin Adverse Reaction Unknown 01/19/19 Yes Physical Exam Physical Exam Constitutional: Well developed, well nourished, no acute distress, non-toxic appearance. [] HENT: Normocephalic, atraumatic, bilateral external ears normal, oropharynx moist, no oral exudates, nose normal. [] Eyes: PERRLA, EOMI, conjunctiva normal, no discharge. [] Cardiovascular: Tachycardia Lungs & Thorax: Bilateral breath sounds clear to auscultation [] Abdomen: Bowel sounds normal, soft, no tenderness, no masses, no pulsatile m asses. [] Skin: Warm, dry, no erythema, no rash. [] Back: No tenderness, no CVA tenderness. [] Extremities: No tenderness, no edema. [] Neurologic: Alert and oriented X 3, no focal deficits noted. [] Psychologic: Affect normal, judgement normal, mood normal. [] Current Patient Data Vital Signs Vital Signs Date Time Temp Pulse Resp B/P (MAP) Pulse Ox O2 Delivery O2 Flow Rate FiO2 02/04/19 19:19 95 02/04/19 18:49 18 02/04/19 18:13 97.5 121 146/90 (108) Room Air 97.5 Lab Values Laboratory Tests Test 02/04/19 18:05 02/04/19 18:35 Urine Collection Type Unknown Urine Color Yellow Urine Clarity Clear Urine pH 5.0 Urine Specific [place] 1.015 Urine Protein Negative mg/dL (NEG-TRACE) Urine Glucose (UA) Negative mg/dL (NEG) Urine Ketones (Stick) Negative mg/dL (NEG) Urine Blood Moderate (NEG) Urine Nitrite Negative (NEG) Urine Bilirubin Negative (NEG) Urine Urobilinogen Dipstick 0.2 mg/dL (0.2 mg/dL) Urine Leukocyte Esterase Negative (NEG) Urine RBC 3-5 /HPF (0-2) Urine WBC 0 /HPF (0-4) Urine Squamous Epithelial Cells Mod /LPF Urine Bacteria 0 /HPF (0-FEW) Urine Hyaline Casts Moderate /HPF Urine Mucus Slight /LPF Urine Yeast Present /HPF White Blood Count 10.2 x10^3/uL (4.0-11.0) Red Blood Count 5.48 x10^6/uL (3.50-5.40) H Hemoglobin 17.0 g/dL (12.0-15.5) H Hematocrit 49.3 % (36.0-47.0) H Mean Corpuscular Volume 90 fL (79-100) Mean Corpuscular Hemoglobin 31 pg (25-35) Mean Corpuscular Hemoglobin Concent 35 g/dL (31-37) Red Cell Distribution Width 14.7 % (11.5-14.5) H Platelet Count 361 x10^3/uL (140-400) Neutrophils (%) (Auto) 72 % (31-73) Lymphocytes (%) (Auto) 21 % (24-48) L Monocytes (%) (Auto) 4 % (0-9) Eosinophils (%) (Auto) 1 % (0-3) Basophils (%) (Auto) 2 % (0-3) Neutrophils # (Auto) 7.3 x10^3/uL (1.8-7.7) Lymphocytes # (Auto) 2.2 x10^3/uL (1.0-4.8) Monocytes # (Auto) 0.4 x10^3/uL (0.0-1.1) Eosinophils # (Auto) 0.1 x10^3/uL (0.0-0.7) Basophils # (Auto) 0.2 x10^3/uL (0.0-0.2) Sodium Level 137 mmol/L (136-145) Potassium Level 3.7 mmol/L (3.5-5.1) Chloride Level 100 mmol/L (98-107) Carbon Dioxide Level 22 mmol/L (21-32) Anion Gap 15 (6-14) H Blood Urea Nitrogen 9 mg/dL (7-20) Creatinine 0.9 mg/dL (0.6-1.0) Estimated GFR (Cockcroft-Gault) 65.2 BUN/Creatinine Ratio 10 (6-20) Glucose Level 113 mg/dL (70-99) H Calcium Level 8.8 mg/dL (8.5-10.1) Total Bilirubin 0.5 mg/dL (0.2-1.0) Aspartate Amino Transferase (AST) 28 U/L (15-37) Alanine Aminotransferase (ALT) 30 U/L (14-59) Alkaline Phosphatase 133 U/L (46-116) H Creatine Kinase 65 U/L (26-192) Troponin I Quantitative < 0.017 ng/mL (0.000-0.055) Total Protein 8.2 g/dL (6.4-8.2) Albumin 3.5 g/dL (3.4-5.0) Albumin/Globulin Ratio 0.7 (1.0-1.7) L Laboratory Tests 02/04/19 18:35 Laboratory Tests 02/04/19 18:35 EKG EKG [] Radiology/Procedures Radiology/Procedures [facility] [address] [place] [address] IMAGING REPORT Signed PATIENT: YUDELKA CHOI ACCOUNT: [id number] : 1965 LOCATION: ER AGE: 54 SEX: F EXAM STATUS: REG ER ORD. PHYSICIAN: MARITN LUO MD REASON: abdominal pain/distention, s/p anthony/umb fernando repair PROCEDURE: CT ABD PELV W/ IV CONTRST ONLY CT abdomen pelvis with contrast dated 02/04/2019. Comparison made to 01/19/2019. Clinical data indication: Pelvic pain and distention. TECHNIQUE: Contiguous axial imaging the abdomen and pelvis performed after the administration of 75 cc Omnipaque 300. One or more of the following individualized dose reduction techniques were utilized for this examination: 1. Automated exposure control 2. Adjustment of the mA and/or kV according to patient size 3. Use of iterative reconstruction technique. FINDINGS: Limited images of lung bases are clear. Heart size within normal limits. No pleural or pericardial effusion. Liver, spleen, pancreas, adrenal glands, kidneys are unremarkable. No hydronephrosis. Gallbladder surgically absent. Unopacified GI tract normal in caliber and contour. No focal bowel wall thickening. No inflammatory stranding in the mesentery. The appendix is normal in caliber. No ascites or lymphadenopathy. There is fluid and gas density within the subcutaneous tissues near the umbilicus. Images of pelvis show a mass at the anterior uterine fundus that measures up to 5 cm in size, likely fibroid. Adnexa are unremarkable. No free fluid or lymphadenopathy. Small bilateral inguinal hernia containing only fat. Bone windows show no acute findings. IMPRESSION: 1. No acute abnormality of abdomen or pelvis. Normal appendix. 2. Fibroid uterus. 3. There is some fluid and gas density within the subcutaneous tissues near the umbilicus of uncertain etiology. This could be related to recent laparoscopy. A small abscess cannot be excluded. Recommend clinical correlation. Electronically signed by: Levar Guzman MD (02/04/2019 8:23 PM) [facility] DICTATED and SIGNED BY: LEVAR GUZMAN MD DATE: 02/04/192022 [] Course & Med Decision Making Course & Med Decision Making Pertinent Labs and Imaging studies reviewed. (See chart for details) []54-year-old female presents to the emergency Department complaints of abdominal pain. She states abdominal pain has been ongoing 1 year. She had a cholecystectomy 4-5 months ago, she was admitted here on January 20 with an umbilical hernia with repair and discharged on 01/22. She presents with continued abdominal pain, distention, nausea, decreased urine output, states the pain comes and goes. She's had diarrhea as well. Patient denies any fevers. She called her primary care physician, he recommended her come to the emergency department for further evaluation. Nothing makes her pain worse, nothing makes her pain better. Labs/Imaging reviewed No CT evidence to account for patient's abdominal pain Lactic acid Call placed to PCP (Dr. Ramon) - recommended GI consult Dragon Disclaimer Dragon Disclaimer This electronic medical record was generated, in whole or in part, using a voice recognition dictation system. Departure Departure Impression: Primary Impression: Intractable abdominal pain Disposition: ADMITTED INPATIENT Admitting Physician: Jacki Ramon Condition: STABLE Referrals: JACKI RAMON MD (PCP) MARTIN LUO MD Feb 04, 2019 18:30
[2019-02-04 18:31] LABS: BILIRUBIN,URINE NEGATIVE (NEG); CLARITY,URINE CLEAR; COLOR,URINE YELLOW; NITRITE,URINE NEGATIVE (NEG); PROTEIN,URINE NEGATIVE (NEG-TRACE); UROBILINOGEN,URINE 0.2 mg/dL (0.2 mg/dL)
[2019-02-04 18:37] LABS: HYALINE CASTS, URINE MODERATE /HPF; SQUAMOUS EPITHELIAL CELL,UR MOD /LPF
[2019-02-04 18:38] LABS: BACTERIA,URINE 0 /HPF (0-FEW); WBC,URINE 0 /HPF (0-4); YEAST,URINE PRESENT /HPF
[2019-02-04] MEDS: MORPHINE SULFATE 2 MG/ML VIAL. IV/SQ PRN ×2 (18:49→20:36)
[2019-02-04 18:53] LABS: BASO # 0.2 x10^3/uL (0.0-0.2); BASO % 2 % (0-3); EOS # 0.1 x10^3/uL (0.0-0.7); EOS % 1 % (0-3); HEMATOCRIT 49.3 % (36.0-47.0); LYMPH # 2.2 x10^3/uL (1.0-4.8); LYMPH % 21 % (24-48); MEAN CORPUSCULAR HEMOGLOBIN 31 pg (25-35); MEAN CORPUSCULAR HGB CONC 35 g/dL (31-37); MEAN CORPUSCULAR VOLUME 90 fL (79-100); MONO # 0.4 x10^3/uL (0.0-1.1); MONO % 4 % (0-9); NEUT # 7.3 x10^3/uL (1.8-7.7); NEUT % 72 % (31-73); PLATELET COUNT 361 x10^3/uL (140-400); RED BLOOD COUNT 5.48 x10^6/uL (3.50-5.40); RED CELL DISTRIBUTION WIDTH 14.7 % (11.5-14.5); WHITE BLOOD COUNT 10.2 x10^3/uL (4.0-11.0)
[2019-02-04 18:59] LABS: CALCIUM 8.8 mg/dL (8.5-10.1); CREATININE 0.9 mg/dL (0.6-1.0); GFR 65.2; POTASSIUM 3.7 mmol/L (3.5-5.1)
[2019-02-04 19:05] LABS: ALBUMIN 3.5 g/dL (3.4-5.0); ALBUMIN/GLOBULIN RATIO 0.7 (1.0-1.7); TOTAL BILIRUBIN 0.5 mg/dL (0.2-1.0); TOTAL PROTEIN 8.2 g/dL (6.4-8.2)
[2019-02-04] MEDS ORDERED: CONTRAST GIVEN. MC PRN (19:15)
[2019-02-04] MEDS ORDERED: IOHEXOL 300 MG/ML 100ML VIAL. IV ONE (19:15)
[2019-02-04 20:10] VITALS: BP 119/80
--- NOTE | 2019-02-04 20:26 | RAD ---
CT abdomen pelvis with contrast dated 02/04/2019. Comparison made to 01/19/2019. Clinical data indication: Pelvic pain and distention. TECHNIQUE: Contiguous axial imaging the abdomen and pelvis performed after the administration of 75 cc Omnipaque 300. One or more of the following individualized dose reduction techniques were utilized for this examination: 1. Automated exposure control 2. Adjustment of the mA and/or kV according to patient size 3. Use of iterative reconstruction technique. FINDINGS: Limited images of lung bases are clear. Heart size within normal limits. No pleural or pericardial effusion. Liver, spleen, pancreas, adrenal glands, kidneys are unremarkable. No hydronephrosis. Gallbladder surgically absent. Unopacified GI tract normal in caliber and contour. No focal bowel wall thickening. No inflammatory stranding in the mesentery. The appendix is normal in caliber. No ascites or lymphadenopathy. There is fluid and gas density within the subcutaneous tissues near the umbilicus. Images of pelvis show a mass at the anterior uterine fundus that measures up to 5 cm in size, likely fibroid. Adnexa are unremarkable. No free fluid or lymphadenopathy. Small bilateral inguinal hernia containing only fat. Bone windows show no acute findings. IMPRESSION: 1. No acute abnormality of abdomen or pelvis. Normal appendix. 2. Fibroid uterus. 3. There is some fluid and gas density within the subcutaneous tissues near the umbilicus of uncertain etiology. This could be related to recent laparoscopy. A small abscess cannot be excluded. Recommend clinical correlation. Electronically signed by: Levar Guzman MD (02/04/2019 8:23 PM) [facility]
[2019-02-04] MEDS ORDERED: ONDANSETRON PF 4 MG/2 ML VIAL. IV PRN (20:45)
[2019-02-04 22:10] VITALS: BP 119/80
--- NOTE | 2019-02-04 22:30 | NUR ---
The patient, YUDELKA CHOI, 54 y/o, F admitted by JACKI RAMON MD, was given written information regarding hospital policies, unit procedures and contact persons. Patient arrived via wheelchair assisted by ED staff member. Valuables were checked and noted. Patient was given pain medications and ice water per patient's request. Patient states no other needs at this time. This RN will continue to monitor the patient at this time.
[2019-02-04] MEDS: MORPHINE SULFATE 4 MG/ML VIAL. IV PRN (22:39)
[2019-02-04] MEDS: IPRATRPIUM/ALBUTEROL 0.5/2.5MG 3 ML NEBU. NEB SCH (23:46)
[2019-02-05 03:00] VITALS: BP 90/42
[2019-02-05] MEDS: MORPHINE SULFATE 4 MG/ML VIAL. IV PRN ×2 (03:34→08:06)
[2019-02-05 05:09] LABS: BASO % 1 % (0-3); EOS # 0.1 x10^3/uL (0.0-0.7); EOS % 1 % (0-3); HEMATOCRIT 44.5 % (36.0-47.0); HEMOGLOBIN 15.1 g/dL (12.0-15.5); LYMPH # 1.8 x10^3/uL (1.0-4.8); LYMPH % 27 % (24-48); MEAN CORPUSCULAR HEMOGLOBIN 31 pg (25-35); MEAN CORPUSCULAR HGB CONC 34 g/dL (31-37); MEAN CORPUSCULAR VOLUME 91 fL (79-100); MONO # 0.4 x10^3/uL (0.0-1.1); MONO % 6 % (0-9); NEUT # 4.3 x10^3/uL (1.8-7.7); NEUT % 65 % (31-73); PLATELET COUNT 302 x10^3/uL (140-400); RED BLOOD COUNT 4.89 x10^6/uL (3.50-5.40); WHITE BLOOD COUNT 6.6 x10^3/uL (4.0-11.0)
[2019-02-05 05:47] LABS: ALBUMIN 3.2 g/dL (3.4-5.0); ALBUMIN/GLOBULIN RATIO 0.7 (1.0-1.7); CALCIUM 8.2 mg/dL (8.5-10.1); CREATININE 0.9 mg/dL (0.6-1.0); GFR 65.2; POTASSIUM 3.8 mmol/L (3.5-5.1); TOTAL BILIRUBIN 0.7 mg/dL (0.2-1.0); TOTAL PROTEIN 7.6 g/dL (6.4-8.2)
--- NOTE | 2019-02-05 06:13 | EKG ---
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
[2019-02-05 07:00] VITALS: BP 142/73
[2019-02-05] MEDS: IPRATRPIUM/ALBUTEROL 0.5/2.5MG 3 ML NEBU. NEB SCH ×8 (07:35→21:12)
[2019-02-05] MEDS: NICOTINE 21MG PATCH. TD SCH (08:05)
[2019-02-05] MEDS ORDERED: diphenhydrAMINE HCL 25 MG CAPSULE PO PRN (08:45)
--- NOTE | 2019-02-05 08:52 | PDOC ---
Provider Note Provider Note [id number] JACKI RAMON MD Feb 05, 2019 08:52
[2019-02-05] MEDS ORDERED: NICOTINE 21MG PATCH. TD SCH (09:00)
[2019-02-05] MEDS: GABAPENTIN 300 MG CAPSULE. PO SCH ×3 (09:00→20:57)
[2019-02-05] MEDS ORDERED: C.DIFF MED SCREEN BY RX. MC ONE (09:00)
[2019-02-05 09:22] LABS: GAMMA GLUTAMYL TRANSPEPTIDASE 716 U/L (5-55); LIPASE 122 U/L (73-393)
--- NOTE | 2019-02-05 09:29 | PDOC2 ---
GI CONSULT Reason For Consult: Abd pain HPI: HPI: 54 y/o female who reports episodic abd pain/bloating (under breasts/ribs, sometimes radiating to right shoulder) w/ nausea x 1 year. Abdomen feels "hard as a rock." Has periods where she is asymptomatic. No triggering factors. Abd US in 04/2018 showed hepatic steatosis and nonspecific nodule in left hepatic lobe. S/p cholecystectomy in 04/2018 for biliary dyskinesia (GB EF 6% - path w/ chronic cholecystitis, no stones - IOC normal). Had umbilical hernia repair in 12/2018. ALDEN negative 04/2018. Takes pantoprazole QHS for reflux - thinks famotidine works better because she can take it BID. H/o alternating bowel habits - "either going to much or not enough" - takes Miralax and fiber PRN. Had some diarrhea yesterday that stopped. No dysphagia, vomiting, hematochezia, or melena. Gained weight 3 years ago, stable since. Says EGD at showed gastritis and maybe small ulcers - was treated for H. p ylori. Also reports GES at was normal. No previous colonoscopy. No pancreas history. No NSAIDs. Notes irregular menstrual cycle and occasional flushing/sweating. PMH: PMH: COPD, MIX, renal cell carcinoma, Aspergers, uterine fibroids partial left nephrectomy, cholecystectomy (chronic cholecystitis, negative IOC), oral surgery, umbilical hernia repair FH: Family History: Cancer (colon), DM, Hypertension, Other (scleroderma) Social History: Smoke: 2 packs per day ALCOHOL: none Drugs: None ROS: GEN: +sweats HEENT: Denies blurred vision, sore throat CV: Denies chest pain RESP: Denies shortness of air, cough GI: Per HPI : Denies hematuria, dysuria ENDO: Denies weight changes NEURO: Denies confusion, dizziness MSK: Denies weakness, joint pain/swelling SKIN: Denies jaundice, pruritus Vitals: Vitals: Vital Signs Date Time Temp Pulse Resp B/P (MAP) Pulse Ox O2 Delivery O2 Flow Rate FiO2 02/05/19 08:06 Room Air 02/05/19 07:38 98 02/05/19 07:00 97.8 99 22 142/73 (96) 97.8 Labs: Labs: Laboratory Tests Test 02/04/19 18:05 02/04/19 18:35 02/04/19 19:55 02/05/19 03:45 Urine Collection Type Unknown Urine Color Yellow Urine Clarity Clear Urine pH 5.0 Urine Specific [place] 1.015 Urine Protein Negative mg/dL (NEG-TRACE) Urine Glucose (UA) Negative mg/dL (NEG) Urine Ketones (Stick) Negative mg/dL (NEG) Urine Blood Moderate (NEG) Urine Nitrite Negative (NEG) Urine Bilirubin Negative (NEG) Urine Urobilinogen Dipstick 0.2 mg/dL (0.2 mg/dL) Urine Leukocyte Esterase Negative (NEG) Urine RBC 3-5 /HPF (0-2) Urine WBC 0 /HPF (0-4) Urine Squamous Epithelial Cells Mod /LPF Urine Bacteria 0 /HPF (0-FEW) Urine Hyaline Casts Moderate /HPF Urine Mucus Slight /LPF Urine Yeast Present /HPF White Blood Count 10.2 x10^3/uL (4.0-11.0) 6.6 x10^3/uL (4.0-11.0) Red Blood Count 5.48 x10^6/uL (3.50-5.40) 4.89 x10^6/uL (3.50-5.40) Hemoglobin 17.0 g/dL (12.0-15.5) 15.1 g/dL (12.0-15.5) Hematocrit 49.3 % (36.0-47.0) 44.5 % (36.0-47.0) Mean Corpuscular Volume 90 fL (79-100) 91 fL (79-100) Mean Corpuscular Hemoglobin 31 pg (25-35) 31 pg (25-35) Mean Corpuscular Hemoglobin Concent 35 g/dL (31-37) 34 g/dL (31-37) Red Cell Distribution Width 14.7 % (11.5-14.5) 15.0 % (11.5-14.5) Platelet Count 361 x10^3/uL (140-400) 302 x10^3/uL (140-400) Neutrophils (%) (Auto) 72 % (31-73) 65 % (31-73) Lymphocytes (%) (Auto) 21 % (24-48) 27 % (24-48) Monocytes (%) (Auto) 4 % (0-9) 6 % (0-9) Eosinophils (%) (Auto) 1 % (0-3) 1 % (0-3) Basophils (%) (Auto) 2 % (0-3) 1 % (0-3) Neutrophils # (Auto) 7.3 x10^3/uL (1.8-7.7) 4.3 x10^3/uL (1.8-7.7) Lymphocytes # (Auto) 2.2 x10^3/uL (1.0-4.8) 1.8 x10^3/uL (1.0-4.8) Monocytes # (Auto) 0.4 x10^3/uL (0.0-1.1) 0.4 x10^3/uL (0.0-1.1) Eosinophils # (Auto) 0.1 x10^3/uL (0.0-0.7) 0.1 x10^3/uL (0.0-0.7) Basophils # (Auto) 0.2 x10^3/uL (0.0-0.2) 0.0 x10^3/uL (0.0-0.2) Sodium Level 137 mmol/L (136-145) 138 mmol/L (136-145) Potassium Level 3.7 mmol/L (3.5-5.1) 3.8 mmol/L (3.5-5.1) Chloride Level 100 mmol/L (98-107) 101 mmol/L (98-107) Carbon Dioxide Level 22 mmol/L (21-32) 26 mmol/L (21-32) Anion Gap 15 (6-14) 11 (6-14) Blood Urea Nitrogen 9 mg/dL (7-20) 9 mg/dL (7-20) Creatinine 0.9 mg/dL (0.6-1.0) 0.9 mg/dL (0.6-1.0) Estimated GFR (Cockcroft-Gault) 65.2 65.2 BUN/Creatinine Ratio 10 (6-20) 10 (6-20) Glucose Level 113 mg/dL (70-99) 98 mg/dL (70-99) Calcium Level 8.8 mg/dL (8.5-10.1) 8.2 mg/dL (8.5-10.1) Total Bilirubin 0.5 mg/dL (0.2-1.0) 0.7 mg/dL (0.2-1.0) Aspartate Amino Transf (AST/SGOT) 28 U/L (15-37) 258 U/L (15-37) Alanine Aminotransferase (ALT/SGPT) 30 U/L (14-59) 136 U/L (14-59) Alkaline Phosphatase 133 U/L (46-116) 219 U/L (46-116) Creatine Kinase 65 U/L (26-192) Troponin I Quantitative < 0.017 ng/mL (0.000-0.055) Total Protein 8.2 g/dL (6.4-8.2) 7.6 g/dL (6.4-8.2) Albumin 3.5 g/dL (3.4-5.0) 3.2 g/dL (3.4-5.0) Albumin/Globulin Ratio 0.7 (1.0-1.7) 0.7 (1.0-1.7) Lactic Acid Level 1.3 mmol/L (0.4-2.0) Gamma Glutamyl Transpeptidase 716 U/L (5-55) Lipase 122 U/L (73-393) Allergies: Coded Allergies: clonazepam (Verified Adverse Reaction, Unknown, Nausea and Vomiting, 01/19/19) pregabalin (Verified Adverse Reaction, Unknown, 01/19/19) DIZZINESS Medications: Current Medications Medications (Trade) Dose Ordered Sig/Nathen Route PRN Reason Start Time Stop Time Status Last Admin Dose Admin Morphine Sulfate (Morphine Sulfate) 2 mg PRN Q15MIN PRN IV/SQ PAIN GREATER THAN 302/04/19 18:30 02/05/19 08:37 DC 02/04/19 20:36 Sodium Chloride 1,000 ml @ 1,000 mls/hr Q1H IV 02/04/19 18:22 02/04/19 19:21 DC 02/04/19 18:47 Ondansetron HCl (Zofran) 4 mg 1X ONCE IV 02/04/19 18:30 02/04/19 18:31 DC 02/04/19 18:47 Iohexol (Omnipaque 300 Mg/ml) 75 ml 1X ONCE IV 02/04/19 19:15 02/04/19 19:16 DC 02/04/19 19:15 Ondansetron HCl (Zofran) 4 mg PRN Q8HRS PRN IV NAUSEA/VOMITING 02/04/19 20:45 02/05/19 20:44 02/05/19 08:05 Morphine Sulfate (Morphine Sulfate) 4 mg PRN Q2HR PRN IV PAIN 02/04/19 20:45 02/05/19 08:37 DC 02/05/19 08:06 Albuterol/ Ipratropium (Duoneb) 3 ml RTQID NEB 02/04/19 23:00 02/05/19 07:38 Nicotine (Nicoderm Cq 21mg) 1 patch DAILY TD 02/05/19 09:00 02/05/19 08:05 Imaging: Imaging: CT A/P IMPRESSION: 1. No acute abnormality of abdomen or pelvis. Normal appendix. 2. Fibroid uterus. 3. There is some fluid and gas density within the subcutaneous tissues near the umbilicus of uncertain etiology. This could be related to recent laparoscopy. A small abscess cannot be excluded. Recommend clinical correlation. PE: GEN: NAD HEENT: Atraumatic, PERRL LUNGS: CTAB HEART: mildly tachycardic ABD: NABS, round/distended w/ binder, tender BUQ - less so BLQ EXTREMITY: No edema SKIN: sweaty NEURO/PSYCH: A & O 3 A/P: A/P: Recurrent abd pain/bloating, nausea Fever, abnormal LFTs, elevated GGT GERD - on PPI QHS H/o H/ pylori - reportedly treated at [facility] screen - none Alternating bowel habits FH CRC Hepatic steatosis S/p cholecystectomy Recent umbilical hernia repair -- Await hepatitis panel and AMA. Recheck abd US. Agree w/ PPI. Monitor for diarrhea recurrence. Outpt screening colonoscopy. Will request records. BREEZY ROMAN Feb 05, 2019 09:29
--- NOTE | 2019-02-05 09:37 | HP ---
ADMIT DATE: 02/05/2019 CHIEF COMPLAINT: Abdominal pain and bloating. HISTORY OF PRESENT ILLNESS: A 54-year-old white female who has had chronic abdominal pain over the last several months and has been at and [place] both. She recently had an incarcerated umbilical hernia repair here and prior to that cholecystectomy, but her pain has continued. She apparently had H. pylori per EGD at a few months ago, but treatment for that has not improved her as well. Gastric emptying study done there was reportedly normal. She denies hematemesis, melena, hematochezia, dark urine, fever, chills or other complaints. In the ER, all labs were normal, but this morning, her liver function tests are elevated. PAST MEDICAL HISTORY AND MEDICATIONS: She takes gabapentin for fibromyalgia, citalopram for anxiety as well as lorazepam. SOCIAL HISTORY: Still heavy smoker. , not employed, nondrinker of alcohol. FAMILY HISTORY: Unremarkable. REVIEW OF SYSTEMS: Not been losing weight, fever, chills or other systemic complaints. OBJECTIVE: ENT: No icterus. Mucosa are somewhat plethoric, otherwise normal. NECK: No masses, nodes or JVD. LUNGS: Coarse expiratory wheezes and a few inspiratory crackles, no rales are heard. CARDIOVASCULAR: Regular rate, rate is about 100. No murmur. ABDOMEN: Bloated, distended, mildly diffusely tender. No guarding, masses or rebound. Bowel sounds are diminished. EXTREMITIES: She has 2+ clubbing of the fingernails. No edema. Good pedal and radial pulses. No joint or skin lesions. NEUROLOGIC: Normal for her and nonfocal. ASSESSMENT: Recurrent abdominal pain. Now has low-grade fever and elevated transaminases, which were not present in the ER. She denies alcohol or aggressive Tylenol use. There is a history of nonalcoholic fatty liver disease. PLAN: Repeat hepatic function tests due the viral hepatitis studies, though acute viral hepatitis unlikely. GGTP, antimitochondrial antibody, lipase and may have to consider something like an ERCP or MRCP should these liver function tests persists. GI consultation has been obtained. JACKI RAMON MD DR: NAHUN/maame JOB#: [id number] / [id number]
--- NOTE | 2019-02-05 10:16 | RAD ---
EXAM: Chest, 2 views. HISTORY: Fever. COPD. COMPARISON: 01/19/2019 FINDINGS: 2 views of the chest are obtained. There is no infiltrate, pleural effusion or pneumothorax. The heart is normal in size. IMPRESSION: No acute pulmonary finding. Electronically signed by: Sivan Hutchinson MD (02/05/2019 10:14 AM) [facility]
[2019-02-05 11:00] VITALS: BP 121/72
[2019-02-05] MEDS: LORazepam 1 MG TABLET PO SCH ×2 (13:16→20:57)
[2019-02-05] MEDS: CITALOPRAM 20 MG TABLET. PO SCH (13:16)
[2019-02-05] MEDS: PANTOPRAZOLE 40 MG TABLET.DR. PO SCH (13:17)
--- NOTE | 2019-02-05 13:53 | RAD ---
EXAM: Abdomen sonogram. HISTORY: Pain and elevated liver function laboratory values. TECHNIQUE: 02/04/2019. COMPARISON: Sonographic imaging of the abdomen was performed. FINDINGS: The liver is mildly enlarged. There is hepatic steatosis. There is a 2.3 cm hypoechoic lesion within the right hepatic lobe. The common bile duct is normal in caliber for patient age. The gallbladder is surgically absent. The right kidney is unremarkable. The pancreas an inferior cava are partially obscured due to bowel gas. The aorta is not formally assessed. IMPRESSION: 1. Hepatomegaly and hepatic steatosis. 2. 2.3 cm hypodense lesion within the right hepatic lobe. There is no convincing CT correlate for this finding on the exam performed 02/04/2019. The hypoechoic lesion within the right hepatic lobe demonstrated on a sonogram dated 04/17/2018 demonstrates no correlate on the current sonogram or prior CT. Liver MRI is recommended if clinically feasible. 3. Cholecystectomy. Electronically signed by: Sivan Hutchinson MD (02/05/2019 1:50 PM) [facility]
--- NOTE | 2019-02-05 14:06 | NUR ---
SW following. Chart reviewed, discussed with RN. Pt is from home, headache, loose stools. GI following. RN advised no SW needs at this time. Pt listed as self pay, will be assessed by [facility] to determine if eligible for medicaid. SW will continue to follow.
[2019-02-05 15:00] VITALS: BP 129/63
[2019-02-05] MEDS: KETOROLAC 15 MG/ML VIAL. IVP PRN (18:18)
[2019-02-05 19:00] VITALS: BP 110/65
[2019-02-05] MEDS: traMADol 50 MG TABLET PO PRN (20:57)
[2019-02-05 23:00] VITALS: BP 115/70
[2019-02-06 03:00] VITALS: BP 109/64
[2019-02-06] MEDS: KETOROLAC 15 MG/ML VIAL. IVP PRN ×3 (03:37→20:37)
[2019-02-06] MEDS: traMADol 50 MG TABLET PO PRN ×3 (03:37→15:57)
[2019-02-06 04:55] LABS: DIRECT BILIRUBIN 0.1 mg/dL (0.0-0.2); TOTAL BILIRUBIN 0.4 mg/dL (0.2-1.0); TOTAL PROTEIN 7.3 g/dL (6.4-8.2)
[2019-02-06 07:00] VITALS: BP 106/37
[2019-02-06] MEDS: PANTOPRAZOLE 40 MG TABLET.DR. PO SCH (07:25)
[2019-02-06] MEDS: IPRATRPIUM/ALBUTEROL 0.5/2.5MG 3 ML NEBU. NEB SCH ×4 (07:46→19:57)
--- NOTE | 2019-02-06 08:52 | PDOC ---
Provider Note Provider Note vss, no more temp- still c/o diffuse abd pain- no emesi or new sxs- LFTs better but still up- GGTP EDVIN coelho pending- sono shows 3 cm area R lobe not seen on ct- she still denies any etoh or high tylenol use- she reports some vaginal bleeding after last 2 surgeries, but brief- will do pelvic sono, psychological anthropologist consult, fsh/ ca125, follow JACKI Dudley MD Feb 06, 2019 08:52
[2019-02-06] MEDS: LORazepam 1 MG TABLET PO SCH ×2 (08:56→20:12)
[2019-02-06] MEDS: GABAPENTIN 300 MG CAPSULE. PO SCH ×3 (08:57→20:12)
[2019-02-06] MEDS: CITALOPRAM 20 MG TABLET. PO SCH (08:57)
[2019-02-06] MEDS: NICOTINE 21MG PATCH. TD SCH (08:58)
[2019-02-06 11:00] VITALS: BP 131/78
--- NOTE | 2019-02-06 12:28 | PDOC ---
Subjective: Subjective: Feels a little better today but still has some pain - meds help (Toardol, Tramadol). Taking some liquids - not interested in advancing diet. Says has chronic intermittent lower abd cramping - like menstrual cramps - also menstrual bleeding every 10 months. However, feels most of pain is in upper abdomen under breasts. 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 Vital Signs: Vital Signs Date Time Temp Pulse Resp B/P (MAP) Pulse Ox O2 Delivery O2 Flow Rate FiO2 02/06/19 11:02 Room Air 02/06/19 11:00 97.7 89 18 131/78 (95) 94 97.7 Labs: Laboratory Tests Test 02/06/19 03:55 Total Bilirubin 0.4 mg/dL Direct Bilirubin 0.1 mg/dL Aspartate Amino Transf (AST/SGOT) 86 U/L Alanine Aminotransferase (ALT/SGPT) 105 U/L Alkaline Phosphatase 198 U/L Total Protein 7.3 g/dL Albumin 3.0 g/dL Imaging: CXR 02/05 IMPRESSION: No acute pulmonary finding. Abd US 02/05 IMPRESSION: 1. Hepatomegaly and hepatic steatosis. 2. 2.3 cm hypodense lesion within the right hepatic lobe. There is no convincing CT correlate for this finding on the exam performed 02/04/2019. The hypoechoic lesion within the right hepatic lobe demonstrated on a sonogram dated 04/17/2018 demonstrates no correlate on the current sonogram or prior CT. Liver MRI is recommended if clinically feasible. 3. Cholecystectomy. PE: GEN: NAD LUNGS: CTAB HEART: RRR ABD: round, still uncomfortable BUQ NEURO/PSYCH: A & O 3 - a bit more perky today A/P: Recurrent abd pain/bloating, nausea Elevated LFTs - better, viral Hep panel negative, AMA pending Hepatomegaly, hepatic steatosis, right hepatic lobe lesion AUB -- Recs for MRI on US report - will review timing of this w/ Dr. Solis and any a dditional recs. Okay to RICK per BREEZY ALEXANDRA Feb 06, 2019 12:28
[2019-02-06 15:00] VITALS: BP 131/79
[2019-02-06 19:00] VITALS: BP 122/80
[2019-02-06 22:48] VITALS: BP 122/68
[2019-02-07 02:35] VITALS: BP 103/53
[2019-02-07 05:10] LABS: FSH 33.6 mIU/mL (.)
[2019-02-07 06:11] LABS: CA 125 20.3 U/mL (0.0-38.1)
[2019-02-07 07:00] VITALS: BP 107/59
[2019-02-07 07:19] LABS: ALBUMIN 3.2 g/dL (3.4-5.0); DIRECT BILIRUBIN 0.2 mg/dL (0.0-0.2); TOTAL BILIRUBIN 0.4 mg/dL (0.2-1.0); TOTAL PROTEIN 7.5 g/dL (6.4-8.2)
[2019-02-07] MEDS: traMADol 50 MG TABLET PO PRN ×2 (07:54→15:09)
[2019-02-07] MEDS: PANTOPRAZOLE 40 MG TABLET.DR. PO SCH (07:54)
[2019-02-07] MEDS: IPRATRPIUM/ALBUTEROL 0.5/2.5MG 3 ML NEBU. NEB SCH ×4 (07:54→19:43)
--- NOTE | 2019-02-07 08:12 | PDOC ---
Provider Note Provider Note vss, no more temp- pain same- TAs still up but stable, ggtp lower- fsh up cons w/ menopause- ca 125 ok- county manager consult pending- will try [place] diet, reduce zee as not helping- ? MRCP, follow TAs- cannot discharge in current state and no dx re hepatic process JACKI RAMON MD Feb 07, 2019 08:12
[2019-02-07] MEDS: CITALOPRAM 20 MG TABLET. PO SCH (08:13)
[2019-02-07] MEDS: LORazepam 1 MG TABLET PO SCH ×3 (08:13→20:25)
[2019-02-07] MEDS: NICOTINE 21MG PATCH. TD SCH (08:13)
[2019-02-07] MEDS: KETOROLAC 15 MG/ML VIAL. IVP PRN ×2 (08:14→20:29)
[2019-02-07] MEDS: GABAPENTIN 300 MG CAPSULE. PO SCH ×3 (09:12→20:25)
--- NOTE | 2019-02-07 09:52 | PDOC ---
Subjective: Subjective: Still hurting - mostly upper but also some lower discomfort. Tolerating clears, plans to try a little more. Hasn't stooled today - lots of gurgling. Difficulty getting insurance - h/o disability for Asperger's and agarophobia, then physical disability after caring for grandmother and mother. Objective: Vital Signs: Vital Signs Date Time Temp Pulse Resp B/P (MAP) Pulse Ox O2 Delivery O2 Flow Rate FiO2 02/07/19 07:00 97.8 89 19 107/59 (75) 96 Room Air 97.8 Labs: Laboratory Tests Test 02/07/19 04:29 Total Bilirubin 0.4 mg/dL Direct Bilirubin 0.2 mg/dL Gamma Glutamyl Transpeptidase 632 U/L Aspartate Amino Transf (AST/SGOT) 93 U/L Alanine Aminotransferase (ALT/SGPT) 110 U/L Alkaline Phosphatase 257 U/L Total Protein 7.5 g/dL Albumin 3.2 g/dL PE: GEN: NAD - more uncomfortable compared to yesterday when I saw her LUNGS: CTAB HEART: RRR ABD: tender across upper abdomen, roundness stable, BS+ NEURO/PSYCH: A & O 3 A/P: Recurrent abd pain/bloating, nausea Elevated LFTs - fluctuating/stable Hepatomegaly, hepatic steatosis, right hepatic lobe lesion AUB (suspect menopause), fibroids -- Ongoing pain - recent EGD and GES at [facility], s/p cholecystectomy. Reviewed w/ [facility] - check SBS and plan for outpt MRI and colonoscopy (though lack of insurance complicates this). AMA and ACCOUNT PLANNER opinion pending. Continue PPI. BREEZY ROMAN Feb 07, 2019 09:52
[2019-02-07] MEDS ORDERED: POLYETHYLENE GLYCOL 3350 17 GM PACKET. PO PRN (10:00)
[2019-02-07] MEDS ORDERED: BISACODYL 5 MG TABLET.DR. PO PRN (10:00)
[2019-02-07] MEDS ORDERED: BARIUM SULFATE 60% 355 ML SUSP PO ONE (10:00)
[2019-02-07 10:43] VITALS: BP 107/67
--- NOTE | 2019-02-07 11:56 | NUR ---
SW following. Pt has SPECIAL LIBRARIAN consult pending. Full liquid diet. RN advised pt likely not discharging today. Pt listed as self pay - plan will be home with self care.
[2019-02-07 15:00] VITALS: BP 110/62
--- NOTE | 2019-02-07 15:40 | RAD ---
Clinical indications: Recurrent abdominal pain and bloating.. Technique: A preliminary KUB was performed. The patient drank two 8 ounce glasses of thin liquid barium containing 1 ounce of Gastrografin and a small bowel series was performed. When the contrast reached the colon, fluoroscopic evaluation of the small bowel was performed including compressive fluoroscopic spot views of the terminal ileum. Findings: No obstructive bowel pattern is seen on the preliminary film.. Contrast reaches the colon by 120 minutes. Peristalsis of the small bowel loops is observed during fluoroscopy. No mucosal fold thickening or distortion or displacement or dilatation of small bowel loops is seen.The terminal ileum is distensible and appears normal radiographically and is not focally tender during compression. Lateral crosstable lateral view of the abdomen was performed and no anterior abdominal wall hernia is seen. Total fluoroscopic time: 0.6 minutes. Total fluoroscopic spot views: 5. Impression: Unremarkable small bowel series. Electronically signed by: Anderson Vega MD (02/07/2019 3:37 PM) [facility]
[2019-02-07 19:00] VITALS: BP 114/85
[2019-02-07 22:37] VITALS: BP 103/50
[2019-02-08 03:14] VITALS: BP 114/67
[2019-02-08] MEDS: KETOROLAC 15 MG/ML VIAL. IVP PRN (06:39)
[2019-02-08 07:07] LABS: DIRECT BILIRUBIN 0.1 mg/dL (0.0-0.2); TOTAL BILIRUBIN 0.4 mg/dL (0.2-1.0)
[2019-02-08 07:59] VITALS: BP 123/66
[2019-02-08] MEDS: LORazepam 1 MG TABLET PO SCH (08:11)
[2019-02-08] MEDS: CITALOPRAM 20 MG TABLET. PO SCH (08:12)
[2019-02-08] MEDS: PANTOPRAZOLE 40 MG TABLET.DR. PO SCH (08:12)
[2019-02-08] MEDS: GABAPENTIN 300 MG CAPSULE. PO SCH (08:12)
[2019-02-08] MEDS: NICOTINE 21MG PATCH. TD SCH (08:13)
[2019-02-08] MEDS: traMADol 50 MG TABLET PO PRN (08:13)
[2019-02-08] MEDS: IPRATRPIUM/ALBUTEROL 0.5/2.5MG 3 ML NEBU. NEB SCH (08:29)
--- NOTE | 2019-02-08 09:35 | PDOC ---
Provider Note Provider Note [id number] JACKI RAMON MD Feb 08, 2019 09:34
--- NOTE | 2019-02-08 10:57 | NUR ---
Discharge Note: [facility] Discharge instructions and discharge home medications reviewed with Patient and a copy given. All questions have been answered and understanding verbalized. The following instructions and handouts were given: Patient given education regarding follow up and prescriptions. Discontinued lines and drains: IV removed per protocol. Patient discharged home.
--- NOTE | 2019-02-08 11:01 | DS ---
DATE OF DISCHARGE: 02/08/2019 HOSPITAL SUMMARY: A 54-year-old white female who was admitted with intractable and idiopathic abdominal pain that had been worked up both at [facility] in and no abnormalities have been found. Chemistry profile was normal on admission, but the next day alkaline phosphatase was up to 219. AST and ALT were 258 and 136 and GGTP was high at 716. It has dropped down to near normal, though the alkaline phosphatase was still elevated at 209 prior to dismissal. Bilirubin was always normal. FSH was elevated at 34 consistent with menopause. CA-125 normal, lipase normal. All viral hepatitis studies negative as was the C. diff toxin. Antimitochondrial antibody is pending at this time. Abdominal and pelvic CT showed a fibroid uterus, but no other significant abnormalities. Chest x-ray was clear. Abdominal sonogram showed a 2.3 cm lesion in the right lower lobe, it is likely felt to be cystic and not related to current problems. Small bowel series was normal. COURSE IN HOSPITAL: She underwent the above evaluation and no specific etiology was found. She denies any alcohol use of high dose Tylenol used to account for the transaminitis and simply bowel rest and liquid diet seem to allow this to improve indicating perhaps a component of fatty liver disease. The etiology of her abdominal pain is unknown, but tramadol does seem to be helping her as she will not be taking any opioids as per discussion. At this time, she is comfortable to be followed as an outpatient. FINAL DIAGNOSES: 1. Intractable abdominal pain, etiology undetermined. 2. Transaminitis, resolving, likely secondary to nonalcoholic fatty liver disease. 3. Fibroid uterus and some history of postmenopausal vaginal bleeding. OPERATIONS, PROCEDURES AND COMPLICATIONS: None. CONSULTATIONS: Dr. Pete and Dr. Solis. DISPOSITION: We will use tramadol up to 650 mg tablets maximum per day, 180 written with 5 refills monthly. She will wean off the gabapentin, it has not been helpful at this time for her. She will take 300 mg t.i.d. for 1 month and then wean off that drug and followup. Rest of all meds remain the same. Complete tobacco avoidance was encouraged as nicotine could be contributing to her abdominal pain. Low fat diet was discussed and result of antimitochondrial antibody will be followed as an outpatient. She will see a studio coordinator to consider the need for endometrial biopsy or hysteroscopy if she has any further postmenopausal vaginal bleeding. Abdominal MRI or MRCP could be considered, but cost is a problem as she is not insured. PROGNOSIS: Guarded. JACKI RAMON MD DR: NAHUN/maame JOB#: [id number] / [id number]
== END 2019-02-08 10:32 | disposition home or self-care (01) | DRG 760 ==
LOC: ER 17:55 → 5 SOUTH 20:39
PROVIDERS: ADMIT Family Medicine; ATTEND Family Medicine
DX: D25.9 Leiomyoma of uterus, unspecified (principal); F84.5 Asperger's syndrome; K76.0 Fatty (change of) liver, not elsewhere classified; R74.0 Nonspecific elevation of levels of transaminase and lactic acid dehydrogenase [LDH]; F17.210 Nicotine dependence, cigarettes, uncomplicated; G89.29 Other chronic pain; J44.9 Chronic obstructive pulmonary disease, unspecified; K21.9 Gastro-esophageal reflux disease without esophagitis; K81.1 Chronic cholecystitis; K82.8 Other specified diseases of gallbladder; Z80.0 Family history of malignant neoplasm of digestive organs; Z90.5 Acquired absence of kidney; Z82.49 Family history of ischemic heart disease and other diseases of the circulatory system; Z83.3 Family history of diabetes mellitus; Z85.528 Personal history of other malignant neoplasm of kidney; Z90.49 Acquired absence of other specified parts of digestive tract; F41.9 Anxiety disorder, unspecified; Z88.8 Allergy status to other drugs, medicaments and biological substances; Z79.899 Other long term (current) drug therapy
CPT/HCPCS: 36415; 71046; 74177; 74250; 76705; 80053; 80076; 81001; 82550; 82977; 83001; 83520; 83605; 83690; 84484; 85025; 86304; 86705; 86709; 86803; 87070; 87205; 87340; 87493; 93005; 94640; 94760; 96361; 96374; 96375; 96376; J1885; J2270; J2405; J7030; J7620; Q9967; 83516; 99285-25; G0378

== ENCOUNTER 2019-05-07 18:53 | Emergency (ER) | payer OTHER ==
[~2019-05-07] VITALS: Ht 157.5 cm; Wt 86.2 kg
[2019-05-07 19:11] LABS: BASO # 0.2 x10^3/uL (0.0-0.2); BASO % 2 % (0-3); EOS # 0.1 x10^3/uL (0.0-0.7); EOS % 1 % (0-3); HEMOGLOBIN 17.3 g/dL (12.0-15.5); LYMPH # 3.8 x10^3/uL (1.0-4.8); LYMPH % 31 % (24-48); MEAN CORPUSCULAR HEMOGLOBIN 30 pg (25-35); MEAN CORPUSCULAR HGB CONC 34 g/dL (31-37); MEAN CORPUSCULAR VOLUME 88 fL (79-100); MONO # 0.6 x10^3/uL (0.0-1.1); MONO % 5 % (0-9); NEUT # 7.4 x10^3/uL (1.8-7.7); NEUT % 61 % (31-73); PLATELET COUNT 360 x10^3/uL (140-400); RED BLOOD COUNT 5.78 x10^6/uL (3.50-5.40); RED CELL DISTRIBUTION WIDTH 14.3 % (11.5-14.5); WHITE BLOOD COUNT 12.2 x10^3/uL (4.0-11.0)
--- NOTE | 2019-05-07 19:14 | PHYS DOC ---
Past Medical History Past Medical History: Anxiety, Cancer, COPD, Fibromyalgia, GERD, Other Additional Past Medical Histor: LIVER NODULES,KIDNEY CA,CHRONIC NECK/BACK PAIN,ASPERGERS Past Surgical History: Cholecystectomy, Other Additional Past Surgical Histo: PARTIAL L NEPHRECTOMY Smoking Status: Current Every Day Smoker Alcohol Use: None Drug Use: None Adult General HPI HPI 54-year-old female with underlying history of anxiety, eyebrows, COPD, present to the emergency department with complaints of generalized weakness. She states is been ongoing over the last month and the last 2-3 days she's had worsening weakness. She describes blurry vision started this morning. She had a fall yesterday. She's had difficulty with ambulation secondary to pain and weakness. Patient denies chest pain/SOB, occasional nausea, no vomiting. Patient denies abdominal pain on exam. Patient is tearful and is not participating well with exam. Review of Systems Review of Systems Constitutional: Denies fever or chills, + generalized weakness[] Eyes: blurry vision Respiratory: Denies cough or shortness of breath [] Cardiovascular: No additional information not addressed in HPI [] GI: Denies abdominal pain, nausea, vomiting, bloody stools or diarrhea [] : Denies dysuria or hematuria [] Musculoskeletal: low back pain Integument: Denies rash or skin lesions [] Neurologic: Denies headache, focal weakness or sensory changes [] All other systems were reviewed and found to be within normal limits, except as documented in this note. Current Medications Current Medications Current Medications Medications (Trade) Dose Ordered Sig/Nathen Start Time Stop Time Status Last Admin Dose Admin Sodium Chloride 1,000 ml @ 1,000 mls/hr 1X ONCE 05/07/19 19:15 05/07/19 20:14 DC 05/07/19 19:30 1,000 MLS/HR Allergies Allergies Allergies Coded Allergies Type Severity Reaction Last Updated Verified pregabalin Adverse Reaction Intermediate 02/06/19 Yes clonazepam Adverse Reaction Mild Nausea and Vomiting 02/06/19 Yes Physical Exam Physical Exam Constitutional: Well developed, well nourished, no acute distress, non-toxic appearance. [] HENT: Normocephalic, atraumatic, bilateral external ears normal, oropharynx moist, no oral exudates, nose normal. [] Eyes: PERRLA, EOMI, conjunctiva normal, no discharge, no nystagmus on exam however patient not participating well with exam Neck: Normal range of motion, no tenderness, supple, no stridor. [] Cardiovascular:Heart rate regular rhythm, no murmur [] Lungs & Thorax: Bilateral breath sounds clear to auscultation [] Abdomen: Bowel sounds normal, soft, no tenderness, no masses, no pulsatile masses. [] Skin: Warm, dry, no erythema, no rash. [] Back: No tenderness, no CVA tenderness. [] Extremities: No tenderness, no edema. [] Neurologic: Alert and oriented X 3, no focal deficits noted. [] Psychologic: Affect normal, judgement normal, mood normal. [] Current Patient Data Vital Signs Vital Signs Date Time Temp Pulse Resp B/P (MAP) Pulse Ox O2 Delivery O2 Flow Rate FiO2 05/07/19 18:53 98.7 108 18 155/90 (111) 97 Room Air 98.7 Lab Values Laboratory Tests Test 05/07/19 16:02 05/07/19 19:02 05/07/19 20:13 White Blood Count 12.2 x10^3/uL (4.0-11.0) H Red Blood Count 5.78 x10^6/uL (3.50-5.40) H Hemoglobin 17.3 g/dL (12.0-15.5) H Hematocrit 51.0 % (36.0-47.0) H Mean Corpuscular Volume 88 fL (79-100) Mean Corpuscular Hemoglobin 30 pg (25-35) Mean Corpuscular Hemoglobin Concent 34 g/dL (31-37) Red Cell Distribution Width 14.3 % (11.5-14.5) Platelet Count 360 x10^3/uL (140-400) Neutrophils (%) (Auto) 61 % (31-73) Lymphocytes (%) (Auto) 31 % (24-48) Monocytes (%) (Auto) 5 % (0-9) Eosinophils (%) (Auto) 1 % (0-3) Basophils (%) (Auto) 2 % (0-3) Neutrophils # (Auto) 7.4 x10^3/uL (1.8-7.7) Lymphocytes # (Auto) 3.8 x10^3/uL (1.0-4.8) Monocytes # (Auto) 0.6 x10^3/uL (0.0-1.1) Eosinophils # (Auto) 0.1 x10^3/uL (0.0-0.7) Basophils # (Auto) 0.2 x10^3/uL (0.0-0.2) Sodium Level 141 mmol/L (136-145) Potassium Level 4.3 mmol/L (3.5-5.1) Chloride Level 102 mmol/L (98-107) Carbon Dioxide Level 26 mmol/L (21-32) Anion Gap 13 (6-14) Blood Urea Nitrogen 7 mg/dL (7-20) Creatinine 0.8 mg/dL (0.6-1.0) Estimated GFR (Cockcroft-Gault) 74.7 BUN/Creatinine Ratio 9 (6-20) Glucose Level 111 mg/dL (70-99) H Lactic Acid Level 1.9 mmol/L (0.4-2.0) Calcium Level 10.1 mg/dL (8.5-10.1) Magnesium Level 2.1 mg/dL (1.8-2.4) Total Bilirubin 0.2 mg/dL (0.2-1.0) Aspartate Amino Transferase (AST) 28 U/L (15-37) Alanine Aminotransferase (ALT) 43 U/L (14-59) Alkaline Phosphatase 137 U/L (46-116) H Troponin I Quantitative < 0.017 ng/mL (0.000-0.055) Total Protein 8.3 g/dL (6.4-8.2) H Albumin 3.6 g/dL (3.4-5.0) Albumin/Globulin Ratio 0.8 (1.0-1.7) L Urine Collection Type U cath Urine Color Yellow Urine Clarity Clear Urine pH 7.0 Urine Specific Harvey <=1.005 Urine Protein Negative mg/dL (NEG-TRACE) Urine Glucose (UA) Negative mg/dL (NEG) Urine Ketones (Stick) Negative mg/dL (NEG) Urine Blood Trace (NEG) Urine Nitrite Negative (NEG) Urine Bilirubin Negative (NEG) Urine Urobilinogen Dipstick 0.2 mg/dL (0.2 mg/dL) Urine Leukocyte Esterase Negative (NEG) Urine RBC 0 /HPF (0-2) Urine WBC Occ /HPF (0-4) Urine Squamous Epithelial Cells Occ /LPF Urine Bacteria 0 /HPF (0-FEW) Influenza Type A Antigen Negative (NEGATIVE) Influenza Type B Antigen Negative (NEGATIVE) Laboratory Tests 05/07/19 16:02 Laboratory Tests 05/07/19 16:02 EKG EKG [] Radiology/Procedures Radiology/Procedures [facility] [address] [place] [address] IMAGING REPORT Signed PATIENT: YUDELKA CHOI ACCOUNT: [id number] : 1965 LOCATION: ER AGE: 54 SEX: F EXAM STATUS: PRE ER ORD. PHYSICIAN: MARTIN LUO MD REASON: blurry vision PROCEDURE: CT HEAD WO CONTRAST Exam: CT head INDICATION: Blurry vision TECHNIQUE: Sequential axial images through the head were obtained without the administration of IV contrast. Comparisons: None FINDINGS: No focal parenchymal lesion or hemorrhage is identified. There is no midline shift or sulcal effacement. No acute vascular territory infarction is identified. [place]-white distinction is preserved. The ventricular system is within normal limits without compression hydrocephalus. The basal cisterns are well maintained. The visualized portions of the paranasal sinuses and mastoid air cells are well-pneumatized. No acute fractures. IMPRESSION: No acute intracranial abnormality. Exposure: One or more of the following in the visualized dose reduction techniques were utilized for this examination: 1. Automated exposure control 2. Adjustment of the MA and/or KV according to patient size Use of iterative of reconstructive technique Electronically signed by: Ruchi Shaffer MD (05/07/2019 7:48 PM) [facility] DICTATED and SIGNED BY: RUCHI SHAFFER MD DATE: 05/07/191947 [] Course & Med Decision Making Course & Med Decision Making Pertinent Labs and Imaging studies reviewed. (See chart for details) []54-year-old female with underlying history of anxiety, eyebrows, COPD, present to the emergency department with complaints of generalized weakness. She states is been ongoing over the last month and the last 2-3 days she's had worsening weakness. She describes blurry vision started this morning. She had a fall ye sterday. She's had difficulty with ambulation secondary to pain and weakness. Patient denies chest pain/SOB, occasional nausea, no vomiting. Patient denies abdominal pain on exam. Patient is tearful and is not participating well with exam. Labs and imaging reviewed, white blood cell count 12.2, urinalysis negative, metabolic profile unremarkable, lactic acid 1.9 CT head without contrast reveals no evidence of acute intracranial process EKG reviewed sinus tachycardia, normal axis, no STEMI And gait disturbance, dizziness we'll plan to admit and further evaluation with neurology consultation. Consider further MRI if warranted per primary team Discussed findings with patient/family at bedside Dragon Disclaimer Dragon Disclaimer This electronic medical record was generated, in whole or in part, using a voice recognition dictation system. Departure Departure Impression: Primary Impression: Dizziness Additional Impression: Gait disturbance Disposition: ADMITTED INPATIENT Admitting Physician: NEDRA Condition: STABLE Referrals: JACKI RAMON MD (PCP) Problem Qualifiers MARTIN LUO MD May 07, 2019 19:14
[2019-05-07] MEDS ORDERED: IV NORMAL SALINE 1000ML BAG 1,000 ML IV ONE (19:15)
[2019-05-07 19:30] LABS: BILIRUBIN,URINE NEGATIVE (NEG); CLARITY,URINE CLEAR; COLOR,URINE YELLOW; NITRITE,URINE NEGATIVE (NEG); PROTEIN,URINE NEGATIVE (NEG-TRACE); UROBILINOGEN,URINE 0.2 mg/dL (0.2 mg/dL)
[2019-05-07 19:31] LABS: ALBUMIN 3.6 g/dL (3.4-5.0); ALBUMIN/GLOBULIN RATIO 0.8 (1.0-1.7); CALCIUM 10.1 mg/dL (8.5-10.1); CREATININE 0.8 mg/dL (0.6-1.0); GFR 74.7; MAGNESIUM 2.1 mg/dL (1.8-2.4); POTASSIUM 4.3 mmol/L (3.5-5.1); TOTAL BILIRUBIN 0.2 mg/dL (0.2-1.0); TOTAL PROTEIN 8.3 g/dL (6.4-8.2)
[2019-05-07 19:38] LABS: BACTERIA,URINE 0 /HPF (0-FEW); RBC,URINE 0 /HPF (0-2); SQUAMOUS EPITHELIAL CELL,UR OCC /LPF; WBC,URINE OCC /HPF (0-4)
--- NOTE | 2019-05-07 19:51 | RAD ---
Exam: CT head INDICATION: Blurry vision TECHNIQUE: Sequential axial images through the head were obtained without the administration of IV contrast. Comparisons: None FINDINGS: No focal parenchymal lesion or hemorrhage is identified. There is no midline shift or sulcal effacement. No acute vascular territory infarction is identified. [place]-white distinction is preserved. The ventricular system is within normal limits without compression hydrocephalus. The basal cisterns are well maintained. The visualized portions of the paranasal sinuses and mastoid air cells are well-pneumatized. No acute fractures. IMPRESSION: No acute intracranial abnormality. Exposure: One or more of the following in the visualized dose reduction techniques were utilized for this examination: 1. Automated exposure control 2. Adjustment of the MA and/or KV according to patient size Use of iterative of reconstructive technique Electronically signed by: Ruchi Lorenz MD (05/07/2019 7:48 PM) [facility]
[2019-05-07 20:34] LABS: INFLUENZA A PATIENT NEGATIVE (NEGATIVE); INFLUENZA B PATIENT NEGATIVE (NEGATIVE)
[2019-05-07 20:40] VITALS: BP 124/78
--- NOTE | 2019-05-08 04:51 | EKG ---
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
== END 2019-05-07 21:20 | disposition left against medical advice (07) ==
LOC: ER 18:53
DX: R42 Dizziness and giddiness (principal); R26.9 Unspecified abnormalities of gait and mobility; J44.9 Chronic obstructive pulmonary disease, unspecified; K21.9 Gastro-esophageal reflux disease without esophagitis; G89.29 Other chronic pain; F41.9 Anxiety disorder, unspecified; F17.200 Nicotine dependence, unspecified, uncomplicated; Z88.8 Allergy status to other drugs, medicaments and biological substances
CPT/HCPCS: 36415; 70450; 80053; 81001; 83605; 83735; 84484; 85025; 87804; 93005; 96360; 99285; J7030

== ENCOUNTER 2019-10-25 12:12 | Emergency (ER) | payer OTHER ==
[~2019-10-25] VITALS: Ht 157.5 cm; Wt 88.6 kg
[2019-10-25] MEDS ORDERED: HYDROmorphone 2 MG/ML VIAL IV ONE (13:00)
[2019-10-25] MEDS ORDERED: IV NORMAL SALINE 1000ML BAG 1,000 ML IV ONE (13:00)
[2019-10-25] MEDS ORDERED: KETOROLAC 15 MG/ML VIAL. IVP ONE (13:15)
[2019-10-25] MEDS ORDERED: KETOROLAC 15 MG/ML VIAL. ONE (13:21)
[2019-10-25 13:26] LABS: BASO % 0 % (0-3); EOS # 0.2 x10^3/uL (0.0-0.7); EOS % 2 % (0-3); HEMATOCRIT 47.2 % (36.0-47.0); HEMOGLOBIN 16.6 g/dL (12.0-15.5); LYMPH # 3.7 x10^3/uL (1.0-4.8); LYMPH % 32 % (24-48); MEAN CORPUSCULAR HEMOGLOBIN 31 pg (25-35); MEAN CORPUSCULAR HGB CONC 35 g/dL (31-37); MEAN CORPUSCULAR VOLUME 89 fL (79-100); MONO # 0.6 x10^3/uL (0.0-1.1); MONO % 6 % (0-9); NEUT # 6.9 x10^3/uL (1.8-7.7); NEUT % 60 % (31-73); PLATELET COUNT 328 x10^3/uL (140-400); RED BLOOD COUNT 5.32 x10^6/uL (3.50-5.40); RED CELL DISTRIBUTION WIDTH 13.5 % (11.5-14.5); WHITE BLOOD COUNT 11.4 x10^3/uL (4.0-11.0)
[2019-10-25 13:41] LABS: CALCIUM 9.1 mg/dL (8.5-10.1); CREATININE 0.8 mg/dL (0.6-1.0); GFR 74.7; POTASSIUM 4.1 mmol/L (3.5-5.1)
[2019-10-25 13:47] LABS: ALBUMIN 3.5 g/dL (3.4-5.0); ALBUMIN/GLOBULIN RATIO 0.8 (1.0-1.7); TOTAL BILIRUBIN 0.3 mg/dL (0.2-1.0); TOTAL PROTEIN 7.7 g/dL (6.4-8.2)
[2019-10-25 14:26] VITALS: BP 100/68
[2019-10-25] MEDS ORDERED: HYDR-3164 PO (15:01)
--- NOTE | 2019-10-25 15:02 | PHYS DOC ---
Past Medical History Past Medical History: Anxiety, Cancer, COPD, Fibromyalgia, GERD, Other Additional Past Medical Histor: LIVER NODULES,KIDNEY CA,CHRONIC NECK/BACK PAIN,ASPERGERS Past Surgical History: Cholecystectomy, Other Additional Past Surgical Histo: PARTIAL L NEPHRECTOMY, HERNIA REPAIR Smoking Status: Current Every Day Smoker Alcohol Use: None Drug Use: None General Adult EDM: Chief Complaint: LOWER BACK PAIN OR INJURY HPI: HPI: Patient is a 54 year old female who presents with reports of nontraumatic right-sided low back pain that radiates into her right buttocks over the past 2 to 3 weeks, patient states she is unable to pinpoint the exact day that it started hurting. Patient rates her pain a 10/10 pain scale. Patient states normally she would go to her primary physician for this type of pain but she owes him money and is required to pay before being seen again. Patient also states that she has left lower extremity swelling over the past 2 years and worries that it may be a blood clot. Patient denies any pain to this left lower extremity. Patient states that approximately 2 weeks ago her primary care physician changed her from Neurontin to trazodone for her chronic nerve pains, and also wonders if this is why her back pain has become worse. Patient denies any recent exposure to COVID-19, also denies fever chills, vision changes, any nasal congestion cough or shortness of breath. She denies any chest pain or abdominal pain, nausea, vomiting, diarrhea, or constipation. Patient denies any difficulty urinating, or any pain in her joints. She denies any skin rashes, headaches, focal weaknesses, or sensory changes. Patient denies any swelling of her glands, any recent life changes, depressions, anxieties, patient denies any homicidal suicidal ideations. Review of Systems: Review of Systems: Constitutional: Denies fever or chills. Patient denies recent exposure to COVID-19. Eyes: Denies change in visual acuity. HENT: Denies nasal congestion or sore throat. Respiratory: Denies cough or shortness of breath. Cardiovascular: Denies chest pain or edema. GI: Denies abdominal pain, nausea, vomiting, constipation or diarrhea. : Denies dysuria. Musculoskeletal: Denies joint pain, complains of low right-sided back pain that radiates into her right buttocks. Integument: Denies rash. Neurologic: Denies headache, focal weakness or sensory changes. Lymphatic: Denies swollen glands. Psychiatric: Denies depression or anxiety. Denies homicidal or suicidal ideations. Heart Score: Risk Factors: Risk Factors: DM, Current or recent (<one month) smoker, HTN, HLP, family history of CAD, obesity. Risk Scores: Score 0 - 3: 2.5% MACE over next 6 weeks - Discharge Home Score 4 - 6: 20.3% MACE over next 6 weeks - Admit for Clinical Observation Score 7 - 10: 72.7% MACE over next 6 weeks - Early Invasive Strategies Current Medications: Current Medications Medications (Trade) Dose Ordered Sig/Nathen Start Time Stop Time Status Last Admin Dose Admin Hydromorphone HCl (Dilaudid) 1 mg 1X ONCE 10/25/19 13:00 10/25/19 13:18 DC Ketorolac Tromethamine (Toradol 15mg Vial) 15 mg STK-MED ONCE 10/25/19 13:21 10/25/19 13:21 DC Sodium Chloride 1,000 ml @ 0 mls/hr 1X ONCE 10/25/19 13:00 10/25/19 13:18 DC Allergies: Allergies: Allergies Coded Allergies Type Severity Reaction Last Updated Verified pregabalin Adverse Reaction Intermediate 02/06/19 Yes clonazepam Adverse Reaction Mild Nausea and Vomiting 02/06/19 Yes Physical Exam: PE: Constitutional: Well developed, well nourished, no acute distress, non-toxic appearance. Patient's reported pain out of proportion to physical findings HENT: Normocephalic, atraumatic, bilateral external ears normal, oropharynx moist, no oral exudates, nose normal. Eyes: PERRLA, EOMI, conjunctiva normal, no discharge. 4 mm. Neck: Normal range of motion, no tenderness, supple, no stridor. Cardiovascular:Heart rate regular rhythm, no murmur heart sounds S1-S2, no abnormalities per auscultation. Lungs & Thorax: Bilateral breath sounds clear to auscultation all lung arvizu. Abdomen: Bowel sounds normal all 4 quadrants to auscultation, soft, no tenderness, no masses, no pulsatile masses. Skin: Warm, dry, no erythema, no rash. Back: Tenderness to palpation right lumbar area and down to middle right side buttocks, no midline spine tenderness, no CVA tenderness. Extremities: No tenderness, no cyanosis, no clubbing, ROM intact, no edema. Neurologic: Alert and oriented X 3, normal motor function, normal sensory function, no focal deficits noted. Psychologic: Affect normal, judgement normal, mood normal. Current Patient Data: Labs: Laboratory Tests Test 10/25/19 13:09 White Blood Count 11.4 x10^3/uL (4.0-11.0) H Red Blood Count 5.32 x10^6/uL (3.50-5.40) Hemoglobin 16.6 g/dL (12.0-15.5) H Hematocrit 47.2 % (36.0-47.0) H Mean Corpuscular Volume 89 fL (79-100) Mean Corpuscular Hemoglobin 31 pg (25-35) Mean Corpuscular Hemoglobin Concent 35 g/dL (31-37) Red Cell Distribution Width 13.5 % (11.5-14.5) Platelet Count 328 x10^3/uL (140-400) Neutrophils (%) (Auto) 60 % (31-73) Lymphocytes (%) (Auto) 32 % (24-48) Monocytes (%) (Auto) 6 % (0-9) Eosinophils (%) (Auto) 2 % (0-3) Basophils (%) (Auto) 0 % (0-3) Neutrophils # (Auto) 6.9 x10^3/uL (1.8-7.7) Lymphocytes # (Auto) 3.7 x10^3/uL (1.0-4.8) Monocytes # (Auto) 0.6 x10^3/uL (0.0-1.1) Eosinophils # (Auto) 0.2 x10^3/uL (0.0-0.7) Basophils # (Auto) 0.0 x10^3/uL (0.0-0.2) D-Dimer (Anna) < 0.27 ug/mlFEU Sodium Level 139 mmol/L (136-145) Potassium Level 4.1 mmol/L (3.5-5.1) Chloride Level 104 mmol/L (98-107) Carbon Dioxide Level 26 mmol/L (21-32) Anion Gap 9 (6-14) Blood Urea Nitrogen 10 mg/dL (7-20) Creatinine 0.8 mg/dL (0.6-1.0) Estimated GFR (Cockcroft-Gault) 74.7 BUN/Creatinine Ratio 13 (6-20) Glucose Level 101 mg/dL (70-99) H Calcium Level 9.1 mg/dL (8.5-10.1) Total Bilirubin 0.3 mg/dL (0.2-1.0) Aspartate Amino Transferase (AST) 24 U/L (15-37) Alanine Aminotransferase (ALT) 43 U/L (14-59) Alkaline Phosphatase 106 U/L (46-116) Total Protein 7.7 g/dL (6.4-8.2) Albumin 3.5 g/dL (3.4-5.0) Albumin/Globulin Ratio 0.8 (1.0-1.7) L Laboratory Tests 10/25/19 13:09 Laboratory Tests 10/25/19 13:09 Vital Signs: Vital Signs Date Time Temp Pulse Resp B/P (MAP) Pulse Ox O2 Delivery O2 Flow Rate FiO2 10/25/19 14:26 93 100/68 (79) 96 Room Air 10/25/19 12:49 98.6 22 98.6 EKG: EKG: [] Radiology/Procedures: Radiology/Procedures: [] Course & Med Decision Making: Course & Med Decision Making Pertinent Labs and Imaging studies reviewed. (See chart for details) 54-year-old female patient presents to the emergency department with nontraumatic right-sided low back pain that radiates into her buttocks for the past 2-3 weeks. Patient also complained of intermittent left lower extremity swelling and was worried that it may be caused by a blood clot. Vital signs were reviewed labs non-concerning for DVT as related to the negative d-dimer. Patient had no lower extremity swelling her exam, 2+ posterior tibial and pedal pulses per auscultation, cap refill brisk at less than 2 seconds. Discussed with patient findings and concerns for pain related to her chronic sciatica history, along with patient reporting her physician recently changed her s ciatica nerve pain medication Neurontin to trazodone 2 or so weeks ago when this back pain additionally started, and supported by exam negative for saddle anesthesia and not concerning for cauda equina, this is most likely an acute exacerbation of her chronic sciatica pains. Discussed with patient plans to discharge home with a prescription of 10 count 5 mg Vicodin's, and to see her primary care physician soon for further pain management and to discuss with him the physical pain changes since having her nerve pain medication changed. Patient was agreeable to discharge to home self-care, follow-up with her physician soon, return to the emergency department for further concerns, patient had no further questions or concerns, patient discharged home. Dragon Disclaimer: Dragon Disclaimer: This electronic medical record was generated, in whole or in part, using a voice recognition dictation system. Departure Departure Impression: Primary Impression: Sciatica of right side Disposition: HOME, SELF-CARE Condition: IMPROVED Referrals: JACKI CASTANON MD (PCP) Patient Instructions: Sciatica Additional Instructions: Follow-up with Dr. Castanon soon regarding your back pain and recent changes of your gabapentin to trazodone, return to the emergency department for further concerns. Scripts Hydrocodone/Apap 5-325 (NORCO 5-325 TABLET) 1 Each Tablet 1 TAB PO PRN Q6HRS PRN for PAIN, #10 TAB 0 Refills Prov: GURPREET MACEDO APRN 10/25/19 Justicifation of Admission Dx: Justifications for Admission: Justification of Admission Dx: N/A GURPREET MACEDO APRN Oct 25, 2019 15:02
== END 2019-10-25 15:15 | disposition home or self-care (01) ==
LOC: ER 12:12
DX: M54.42 Lumbago with sciatica, left side (principal); J44.9 Chronic obstructive pulmonary disease, unspecified; K21.9 Gastro-esophageal reflux disease without esophagitis; F17.200 Nicotine dependence, unspecified, uncomplicated; G89.29 Other chronic pain; Z90.49 Acquired absence of other specified parts of digestive tract; Z90.5 Acquired absence of kidney; Z98.890 Other specified postprocedural states
CPT/HCPCS: 36415; 80053; 85025; 85379; 96374; 99283; J1885

== ENCOUNTER 2020-01-15 16:36 | Emergency (ER) | payer OTHER ==
[~2020-01-15] VITALS: Ht 157.5 cm; Wt 90.9 kg
[~2020-01-15 16:36] MED LIST changes: +HYDR-3164 PO
[2020-01-15] MEDS ORDERED: IV NORMAL SALINE 1000ML BAG 1,000 ML IV ONE (17:00)
[2020-01-15 17:14] LABS: BILIRUBIN,URINE NEGATIVE (NEG); CLARITY,URINE CLEAR; COLOR,URINE YELLOW; NITRITE,URINE NEGATIVE (NEG); PROTEIN,URINE NEGATIVE (NEG-TRACE); UROBILINOGEN,URINE 0.2 mg/dL (0.2 mg/dL)
[2020-01-15 17:17] LABS: BARBITURATES NEG (NEG); BENZODIAZEPINES NEG (NEG); CANNABINOIDS NEG (NEG); COCAINE NEG (NEG); METHADONE NEG (NEG); OPIATES NEG (NEG); PHENCYCLIDINE NEG (NEG)
[2020-01-15 17:19] LABS: BACTERIA,URINE FEW /HPF (0-FEW); RBC,URINE OCC /HPF (0-2); WBC,URINE OCC /HPF (0-4)
[2020-01-15 17:25] LABS: AMPHETAMINE/METHAMPHETAMINE NEG (NEG)
[2020-01-15] MEDS ORDERED: fentaNYL PF VIAL 100 MCG/2 ML VIAL IVP ONE (17:30)
[2020-01-15 17:55] LABS: BASO # 0.1 x10^3/uL (0.0-0.2); BASO % 1 % (0-3); EOS # 0.1 x10^3/uL (0.0-0.7); EOS % 1 % (0-3); HEMATOCRIT 48.5 % (36.0-47.0); LYMPH # 3.9 x10^3/uL (1.0-4.8); LYMPH % 28 % (24-48); MEAN CORPUSCULAR HEMOGLOBIN 31 pg (25-35); MEAN CORPUSCULAR HGB CONC 35 g/dL (31-37); MEAN CORPUSCULAR VOLUME 89 fL (79-100); MONO # 0.8 x10^3/uL (0.0-1.1); MONO % 6 % (0-9); NEUT # 8.9 x10^3/uL (1.8-7.7); NEUT % 64 % (31-73); PLATELET COUNT 346 x10^3/uL (140-400); RED BLOOD COUNT 5.47 x10^6/uL (3.50-5.40); RED CELL DISTRIBUTION WIDTH 14.1 % (11.5-14.5)
--- NOTE | 2020-01-15 18:10 | RAD ---
PORTABLE CHEST 1V History: Reason: weakness / Spl. Instructions: / History: Comparison: February 19 Findings: Mild left basilar linear atelectasis. No consolidation or pleural effusion. Normal heart size. No pneumothorax. Impression: 1. No acute cardiopulmonary process. Electronically signed by: Wes Hurd DO (01/15/2020 6:08 PM) [facility] [place]
--- NOTE | 2020-01-15 18:27 | RAD ---
Examination: CT HEAD WO CONTRAST History: Reason: weakness / Spl. Instructions: / History: Comparison/Correlation: 05/07/2019 CT head without contrast Findings: Axial images of the head were obtained without contrast. Coronal images provided. Ventricles are normal size. No intracranial hemorrhage, midline shift, or mass effect. Orbits are unremarkable. Bony structures are unremarkable. Impression: No suspicious process. Electronically signed by: Jose Manuel Matos MD (01/15/2020 6:24 PM) [facility]
--- NOTE | 2020-01-15 19:21 | PHYS DOC ---
Past Medical History Past Medical History: Anxiety, Cancer, COPD, Fibromyalgia, GERD, Other Additional Past Medical Histor: LIVER NODULES,KIDNEY CA,CHRONIC NECK/BACK PAIN,ASPERGERS (DWAIN LOERA APRN) Past Surgical History: Cholecystectomy, Other Additional Past Surgical Histo: PARTIAL L NEPHRECTOMY, HERNIA REPAIR (DWAIN LOERA APRN) Smoking Status: Current Every Day Smoker Additional Information: / Alcohol Use: None Drug Use: None (DWAIN LOERA APRN) General Adult EDM: Chief Complaint: FATIGUE HPI: HPI: Patient is a 54 year old female with a history of anxiety, agoraphobia, fibromyalgia, chronic neck and back pain, COPD, who presents the ED today to be evaluated for generalized weakness and fatigue that has been going on for 3 days. Patient denies any chest pain or shortness of breath. She states she has chronic neck pain and also chronic low back pain rated as moderate and intermittent that would like it addressed today as well. Specifically asking for something for pain. Denies any injury. Denies any pain radiating to bilateral lower extremities or upper extremities. Denies any loss of bowel/bladder function. She appears very anxious and keeps stating she cannot talk anymore. (DWAIN LOERA APRN) Review of Systems: Review of Systems: Constitutional: Reports fatigue and generalized weakness. Denies fever or chills. [] Eyes: Denies change in visual acuity. [] HENT: Denies nasal congestion or sore throat. [] Respiratory: Denies cough or shortness of breath. [] Cardiovascular: Denies chest pain or edema. [] GI: Denies abdominal pain, nausea, vomiting, bloody stools or diarrhea. [] : Denies dysuria. [] Musculoskeletal: Reports chronic neck and back pain Integument: Denies rash. [] Neurologic: Denies headache, focal weakness or sensory changes. [] Psychiatric: Denies depression or anxiety. [] (DWAIN LOERA APRN) Heart Score: Risk Factors: Risk Factors: DM, Current or recent (<one month) smoker, HTN, HLP, family history of CAD, obesity. Risk Scores: Score 0 - 3: 2.5% MACE over next 6 weeks - Discharge Home Score 4 - 6: 20.3% MACE over next 6 weeks - Admit for Clinical Observation Score 7 - 10: 72.7% MACE over next 6 weeks - Early Invasive Strategies (DWAIN LOERA APRN) Current Medications: Current Medications Medications (Trade) Dose Ordered Sig/[facility] Start Time Stop Time Status Last Admin Dose Admin Fentanyl Citrate (Fentanyl 2ml Vial) 50 mcg 1X ONCE 01/15/20 17:30 01/15/20 17:31 DC 01/15/20 17:28 50 MCG Sodium Chloride 1,000 ml @ 1,000 mls/hr 1X ONCE 01/15/20 17:00 01/15/20 17:59 DC 01/15/20 17:10 1,000 MLS/HR (DWAIN LOERA APRN) Allergies: Allergies: Allergies Coded Allergies Type Severity Reaction Last Updated Verified pregabalin Adverse Reaction Intermediate 02/06/19 Yes clonazepam Adverse Reaction Mild Nausea and Vomiting 02/06/19 Yes (DWAIN LOERA APRN) Physical Exam: PE: Constitutional: Well developed, well nourished, no acute distress, non-toxic appearance. [] HENT: Normocephalic, atraumatic, bilateral external ears normal, oropharynx moist, no oral exudates, nose normal. [] Eyes: PERRLA, EOMI, conjunctiva normal, no discharge. [] Neck: Normal range of motion, no tenderness, supple, no stridor. [] Cardiovascular:Heart rate regular rhythm, no murmur [] Lungs & Thorax: Bilateral breath sounds clear to auscultation [] Abdomen: Bowel sounds normal, soft, no tenderness, no masses, no pulsatile masses. [] Skin: Warm, dry, no erythema, no rash. [] Back: No tenderness, no CVA tenderness. [] Extremities: No tenderness, no cyanosis, no clubbing, ROM intact, no edema. [] Neurologic: Alert and oriented X 3, normal motor function, normal sensory function, no focal deficits noted. Cranial nerves II through XII intact Psychologic: Appears very anxious and restless (DWAIN LOERA APRN) Current Patient Data: Labs: Laboratory Tests Test 01/15/20 16:45 01/15/20 17:15 Urine Collection Type Unknown Urine Color Yellow Urine Clarity Clear Urine pH 6.0 (<5.0-8.0) Urine Specific [place] <=1.005 (1.000-1.030) Urine Protein Negative mg/dL (NEG-TRACE) Urine Glucose (UA) Negative mg/dL (NEG) Urine Ketones (Stick) Negative mg/dL (NEG) Urine Blood Trace (NEG) Urine Nitrite Negative (NEG) Urine Bilirubin Negative (NEG) Urine Urobilinogen Dipstick 0.2 mg/dL (0.2 mg/dL) Urine Leukocyte Esterase Negative (NEG) Urine RBC Occ /HPF (0-2) Urine WBC Occ /HPF (0-4) Urine Squamous Epithelial Cells Mod /LPF Urine Bacteria Few /HPF (0-FEW) Urine Opiates Screen Neg (NEG) Urine Methadone Screen Neg (NEG) Urine Barbiturates Neg (NEG) Urine Phencyclidine Screen Neg (NEG) Urine Amphetamine/Methamphetamine Neg (NEG) Urine Benzodiazepines Screen Neg (NEG) Urine Cocaine Screen Neg (NEG) Urine Cannabinoids Screen Neg (NEG) Urine Ethyl Alcohol Neg (NEG) White Blood Count 14.0 x10^3/uL (4.0-11.0) H Red Blood Count 5.47 x10^6/uL (3.50-5.40) H Hemoglobin 17.0 g/dL (12.0-15.5) H Hematocrit 48.5 % (36.0-47.0) H Mean Corpuscular Volume 89 fL (79-100) Mean Corpuscular Hemoglobin 31 pg (25-35) Mean Corpuscular Hemoglobin Concent 35 g/dL (31-37) Red Cell Distribution Width 14.1 % (11.5-14.5) Platelet Count 346 x10^3/uL (140-400) Neutrophils (%) (Auto) 64 % (31-73) Lymphocytes (%) (Auto) 28 % (24-48) Monocytes (%) (Auto) 6 % (0-9) Eosinophils (%) (Auto) 1 % (0-3) Basophils (%) (Auto) 1 % (0-3) Neutrophils # (Auto) 8.9 x10^3/uL (1.8-7.7) H Lymphocytes # (Auto) 3.9 x10^3/uL (1.0-4.8) Monocytes # (Auto) 0.8 x10^3/uL (0.0-1.1) Eosinophils # (Auto) 0.1 x10^3/uL (0.0-0.7) Basophils # (Auto) 0.1 x10^3/uL (0.0-0.2) Prothrombin Time 12.0 SEC (11.7-14.0) Prothrombin Time INR 0.9 (0.8-1.1) Laboratory Tests 01/15/20 17:15 Vital Signs: Vital Signs Date Time Temp Pulse Resp B/P (MAP) Pulse Ox O2 Delivery O2 Flow Rate FiO2 01/15/20 17:28 20 94 Room Air 01/15/20 16:45 98.4 100 186/89 (121) 98.4 (DWAIN LOERA APRN) EKG: EKG: [] (DWAIN LOERA APRN) Radiology/Procedures: Radiology/Procedures: [] (DWAIN LOERA APRN) Course & Med Decision Making: Course & Med Decision Making Pertinent Labs and Imaging studies reviewed. (See chart for details) This is a 54-year-old female patient presenting to the ED today complaining of generalized weakness and fatigue that began 3 days ago. Patient appears anxious and states she has history of chronic anxiety and agoraphobia. PAT team came and evaluated her. CT of the head is negative for any acute findings, chest x-ray negative for any acute findings. Troponin is normal, EKG is normal, CMP with no acute findings, urine analysis is negative, CBC with a WBC of 14.0. Patient was given IV fluids, feeling better. Was tested for COVID-19, results will be called to her. Discharge to home (DWAIN LOERA APRN) Course & Med Decision Making I have reviewed the PA/TELECOMMUNICATION[employer] EQUIPMENT INSTALLER's note and Plan of Care. I was available for consultation as needed during the patient's visit in the emergency department. I agree with the clinical impression, plans and disposition. (OZIEL PICKETT MD) Onur Disclaimer: Dragdona Disclaimer: This electronic medical record was generated, in whole or in part, using a voice recognition dictation system. (DWAIN LOERA APRN) Departure Departure Impression: Primary Impression: Weakness Additional Impressions: Fatigue Qualified Codes: R53.83 - Other fatigue Person under investigation for COVID-19 Disposition: 01 DC HOME SELF CARE/HOMELESS Condition: STABLE Referrals: JACKI RAMON MD (PCP) follow up next week Patient Instructions: Fatigue, Weakness, [id number] Additional Instructions: You were evaluated in the emergency room, your work-up was essentially negative for any acute findings, you were tested for COVID-19, we will call you with the results. Quarantine yourself until you hear from us. Push fluids, maintain good hand hygiene, follow-up with your doctor in 1 to 2 weeks. DWAIN LOERA APRN Jan 15, 2020 19:21 OZIEL PICKETT MD Jan 15, 2020 22:26
[2020-01-15 20:08] LABS: CALCIUM 9.1 mg/dL (8.5-10.1); CREATININE 0.6 mg/dL (0.6-1.0); GFR 104.2; POTASSIUM 3.8 mmol/L (3.5-5.1)
[2020-01-15 20:13] LABS: ALBUMIN 3.5 g/dL (3.4-5.0); ALBUMIN/GLOBULIN RATIO 0.9 (1.0-1.7); TOTAL BILIRUBIN 0.4 mg/dL (0.2-1.0); TOTAL PROTEIN 7.6 g/dL (6.4-8.2)
[2020-01-15 20:24] VITALS: BP 137/73
--- NOTE | 2020-01-16 04:36 | EKG ---
[facility] [address] [place] [address] Test Date: 2020-01-15 Test Time: 17:05:12 Pat Name: YUDELKA CHOI Department: Room: Gender: F [employer] Kil[employer] Operator: : 1965 Requested By: DWAIN LOERA Order Number: [id number] Reading MD: Measurements Intervals [place] Rate: 101 P: -4 IL: 138 QRS: -4 QRSD: 80 T: 31 QT: 336 QTc: 436 Interpretive Statements SINUS TACHYCARDIA LEFTWARD AXIS OTHERWISE NORMAL ECG RI6.02 No previous ECG available for comparison
--- NOTE | 2020-01-16 13:46 | NUR ---
IP: Attempted to call COVID results. No answer. Left a voicemail to return call. Addendum: 01/16/20 at 1442 by JAMIR CLAY RN IP: Pt returned call. I informed her of the negative COVID test. Pt verbalized understanding.
== END 2020-01-15 20:55 | disposition home or self-care (01) ==
LOC: ER 16:36
DX: R53.1 Weakness (principal); R53.83 Other fatigue; Z20.828 Contact with and (suspected) exposure to other viral communicable diseases; G89.29 Other chronic pain; M54.2 Cervicalgia; M54.5 Low back pain; J44.9 Chronic obstructive pulmonary disease, unspecified; K21.9 Gastro-esophageal reflux disease without esophagitis; F41.9 Anxiety disorder, unspecified; F17.200 Nicotine dependence, unspecified, uncomplicated; Z88.8 Allergy status to other drugs, medicaments and biological substances
CPT/HCPCS: 36415; 70450; 71045; 80053; 80307; 81001; 83690; 83735; 83880; 84443; 84484; 85025; 85610; 93005; 96361; 96374; 99285; C9803; G0480; J3010; J7030; U0003

== ENCOUNTER 2021-01-07 11:24 | Inpatient (IN) | payer OTHER ==
[~2021-01-07] VITALS: Ht 157.5 cm; Wt 93.1 kg
[~2021-01-07 11:24] MED LIST changes: +ALBU2.5V8 IH; +CITA40TA12 PO; +FAMO20TA5 PO; +GABA800T5 PO; +TRAM50TA PO
[2021-01-07] MEDS ORDERED: DEXAMETHASONE SOD PHOS 4 MG/ML VIAL IVP ONE (12:00)
--- NOTE | 2021-01-07 12:13 | PHYS DOC ---
Past Medical History Past Medical History: Anxiety, Cancer, COPD, Fibromyalgia, GERD, Renal Disease, Other Additional Past Medical Histor: LIVER NODULES,KIDNEY CA,CHRONIC NECK/BACK PAIN,ASPERGERS,CKD ALPHA I DEF, (NILA BERUMEN SOAP DRIER OPERATOR) Past Surgical History: Cholecystectomy, Other Additional Past Surgical Histo: PARTIAL L NEPHRECTOMY, HERNIA REPAIR (NILA BERUMEN APRN) Smoking Status: Current Every Day Smoker Alcohol Use: None Drug Use: None (NILA BERUMEN APRN) General Adult EDM: Chief Complaint: SHORTNESS OF BREATH HPI: HPI: Patient is a 55-year-old female that presents today with increased shortness of breath, patient states that her entire household has COVID-19 and she believes she does state as well. Patient states symptoms of body aches headaches and cough started 2 to 3 days ago, patient states the symptoms have gotten worse over the last 3 days and she has been checking her oxygenation at home she states that has been running in the high 80s and she decided to come in for treatment when her oxygenation levels were dropping and she was unable to walk without much difficulty. Patient does have a past medical history of smoking 1 pack/day also has COPD and alpha-1 deficiency. Patient states she takes Advair twice daily and has also been using her rescue inhalers at least 2-3 times daily. Patient states that she has not had the COVID-19 vaccines (NILA BERUMEN SOAP DRIER OPERATOR) Review of Systems: Review of Systems: Constitutional: fever or chills, body aches [] Eyes: Denies change in visual acuity. [] HENT: Denies nasal congestion or sore throat. [] Respiratory: cough or shortness of breath. [] Cardiovascular: Denies chest pain or edema. [] GI: Denies abdominal pain, nausea, vomiting, bloody stools or diarrhea. [] : Denies dysuria. [] Musculoskeletal: body aches [] Integument: Denies rash. [] Neurologic: Denies headache, focal weakness or sensory changes. [] Endocrine: Denies polyuria or polydipsia. [] Lymphatic: Denies swollen glands. [] Psychiatric: scared and anxiety. [] (NILA BERUMEN SOAP DRIER OPERATOR) Heart Score: C/O Chest Pain: No Risk Factors: Risk Factors: DM, Current or recent (<one month) smoker, HTN, HLP, family history of CAD, obesity. Risk Scores: Score 0 - 3: 2.5% MACE over next 6 weeks - Discharge Home Score 4 - 6: 20.3% MACE over next 6 weeks - Admit for Clinical Observation Score 7 - 10: 72.7% MACE over next 6 weeks - Early Invasive Strategies (NILA BERUMEN APRN) Current Medications: Advair twice daily; albuterol inhaler for rescue (NILA BERUMEN APRN) Allergies: Allergies: Allergies Coded Allergies Type Severity Reaction Last Updated Verified pregabalin Adverse Reaction Intermediate 02/06/19 Yes clonazepam Adverse Reaction Mild Nausea and Vomiting 02/06/19 Yes (NILA BERUMEN APRN) Physical Exam: PE: Constitutional: Obese female with moderate distress, with increase work of breathing. HENT: Normocephalic, atraumatic, bilateral external ears normal, oropharynx moist, no oral exudates, nose normal. [] Eyes: PERRLA, EOMI, conjunctiva normal, no discharge. [] Neck: Normal range of motion, no tenderness, supple, no stridor. [] Cardiovascular:Tachycardia, peripheral pulses 2+, Lungs & Thorax: Bilateral diminshed breath sounds, non-productive cough noted Abdomen: Bowel sounds normal, soft, no tenderness, no masses, no pulsatile masses. [] Skin: Warm, dry, pale [] Back: No tenderness, no CVA tenderness. [] Extremities: No tenderness, no cyanosis, no clubbing, ROM intact, no edema. [] Neurologic: Alert and oriented X 3, normal motor function, normal sensory function, no focal deficits noted. [] Psychologic: Affect normal, judgement normal, mood normal. [] (NILA BERUMEN APRN) Current Patient Data: Labs: Laboratory Tests Test 01/07/21 12:03 01/07/21 12:05 SARS-CoV-2 Antigen (Rapid) Positive White Blood Count 7.9 x10^3/uL Red Blood Count 4.97 x10^6/uL Hemoglobin 15.8 g/dL Hematocrit 45.2 % Mean Corpuscular Volume 91 fL Mean Corpuscular Hemoglobin 32 pg Mean Corpuscular Hemoglobin Concent 35 g/dL Red Cell Distribution Width 13.7 % Platelet Count 176 x10^3/uL Neutrophils (%) (Auto) 79 % Lymphocytes (%) (Auto) 18 % Monocytes (%) (Auto) 3 % Eosinophils (%) (Auto) 0 % Basophils (%) (Auto) 0 % Neutrophils # (Auto) 6.2 x10^3/uL Lymphocytes # (Auto) 1.4 x10^3/uL Monocytes # (Auto) 0.3 x10^3/uL Eosinophils # (Auto) 0.0 x10^3/uL Basophils # (Auto) 0.0 x10^3/uL Prothrombin Time 11.9 SEC Prothromb Time International Ratio 0.9 Activated Partial Thromboplast Time 33 SEC Sodium Level 134 mmol/L Potassium Level 4.7 mmol/L Chloride Level 97 mmol/L Carbon Dioxide Level 28 mmol/L Anion Gap 9 Blood Urea Nitrogen 9 mg/dL Creatinine 0.7 mg/dL Estimated GFR (Cockcroft-Gault) 86.9 BUN/Creatinine Ratio 13 Glucose Level 102 mg/dL Calcium Level 8.3 mg/dL Total Bilirubin 0.3 mg/dL Aspartate Amino Transf (AST/SGOT) 99 U/L Alanine Aminotransferase (ALT/SGPT) 77 U/L Alkaline Phosphatase 177 U/L Troponin I Quantitative < 0.017 ng/mL Total Protein 7.0 g/dL Albumin 3.2 g/dL Albumin/Globulin Ratio 0.8 Current Medications Medications (Trade) Dose Ordered Sig/Nathen Route PRN Reason Start Time Stop Time Status Last Admin Dose Admin Dexamethasone Sodium Phosphate (Decadron) 10 mg 1X ONCE IVP 01/07/21 12:00 01/07/21 12:08 DC 01/07/21 13:00 Fentanyl Citrate (Fentanyl 2ml Vial) 25 mcg 1X ONCE IVP 01/07/21 13:15 01/07/21 13:19 DC 01/07/21 13:47 Iohexol (Omnipaque 350 Mg/ml) 100 ml 1X ONCE IV 01/07/21 13:15 01/07/21 13:19 DC 01/07/21 13:15 Info (CONTRAST GIVEN -- Rx MONITORING) 1 each PRN DAILY PRN MC SEE COMMENTS 01/07/21 13:30 01/09/21 13:29 Vital Signs: Vital Signs Date Time Temp Pulse Resp B/P (MAP) Pulse Ox O2 Delivery O2 Flow Rate FiO2 01/07/21 11:38 98.8 112 24 139/75 (96) 90 Room Air 98.8 (NILA BERUMEN SOAP DRIER OPERATOR) EKG: EKG: EKG performed at 1147 read as no STEMI by Dr. Abel at 1156, EKG shows sinus tachycardia with no ectopy noted. [] (NILA BERUMEN SOAP DRIER OPERATOR) Radiology/Procedures: Radiology/Procedures: PROCEDURE: CHEST AP ONLY EXAM: Chest, single view. HISTORY: Short of breath. Covid 19. COMPARISON: 09/08/2020 FINDINGS: A frontal view of the chest is obtained. There is bilateral lower lobe atelectasis or interstitial infiltrate. There is no consolidation, pleural eff usion or pneumothorax. There is a stable cardiac silhouette. IMPRESSION: Bilateral lower lobe atelectasis or interstitial infiltrate. Electronically signed by: Sivan Hutchinson MD (01/07/2021 12:36 PM) [id number][] PROCEDURE: CT ANGIOGRAPHY CHEST Examination: CT angiography chest with IV contrast HISTORY: History of shortness of breath, tachycardia COMPARISON: None TECHNIQUE: Axial CT angiographic images of chest were performed with IV contrast. Coronal and sagittal 3-D MIP reformats are performed. Exposure: One or more of the following individualized dose reduction techniques were utilized for this examination: 1. Automated exposure control 2. Adjustment of the mA and/or kV according to patient size 3. Use of iterative reconstruction technique FINDINGS: The visualized thyroid gland grossly appears unremarkable. Central airways are patent. Heart size grossly appears unremarkable. The caliber of the aorta grossly appears unremarkable there is no evidence of filling defect identified in the main pulmonary arterial trunk and right and left main pulmonary arteries as well as the distal branch of the pulmonary arteries is limited. Mild enlarged bilateral hilar lymph nodes with the largest measuring 2.1 cm on the right. Small enlarged mediastinal lymph nodes identified with largest measuring 1.7 cm in the pretracheal region. Moderate bilateral lung emphysematous changes. There are patchy airspace and interstitial opacities identified in the right upper lobe, left upper lobe and in the bibasilar lungs likely infiltrates. Mild decreased attenuation noted in the liver likely hepatic steatosis. The spleen, adrenals grossly appears unremarkable Small hiatal hernia. Mild degenerative changes thoracic spine. IMPRESSION: 1. No evidence of central pulmonary embolism. 2. Patchy airspace and interstitial opacities identified in the right upper lobe, left upper lobe and in the bibasilar lungs likely infiltrates. Follow-up to resolution. 3. Moderate bilateral lung emphysematous changes. 4. Enlarged mediastinal and bilateral hilar lymphadenopathy probably reactive. 5. Small hiatal hernia. Electronically signed by: Ramu Griffiths MD (01/07/2021 2:48 PM) [id number] (NILA BERUMEN APRN) Course & Med Decision Making: Course & Med Decision Making Pertinent Labs and Imaging studies reviewed. (See chart for details) 1309 spoke to patient about Covid positive results, patient states breathing better with oxygen and with steroids continuing to have body aches, patient states she sees a nurse practitioner in Dr. Ramon's office as a primary care. Due to increased tachycardia will order a CT angio chest to rule out PE. [ [address] Ramon regarding patient okay to admit pulmonary consult will also treat for community-acquired pneumonia due to CT scan showing pneumonia, no pulmonary embolus noted. Dr. Ramon also requested Combivent inhaler be ordered for patient every 4 hours. patient agreeable to admitting] (NILA BERUMEN APRN) Course & Med Decision Making I have participated in the care of this patient and I have reviewed and agree with all pertinent clinical information above including history, exam, and recommendations. (DIGNA ABEL DO) Dragon Disclaimer: Dragon Disclaimer: This electronic medical record was generated, in whole or in part, using a voice recognition dictation system. (NILA BERUMEN APRN) Departure Departure Impression: Primary Impression: Person under investigation for COVID-19 Additional Impressions: Community acquired pneumonia Qualified Codes: J18.9 - Pneumonia, unspecified organism Shortness of breath Disposition: ADMITTED INPATIENT Admitting Physician: Jacki Ramon (NILA BERUMEN APRN) Condition: STABLE Referrals: JACKI RAMON MD (PCP) NILA BERUMEN APRN Jan 07, 2021 12:12 DIGNA ABEL DO Jan 10, 2021 06:40
[2021-01-07 12:38] LABS: BASO % 0 % (0-3); EOS % 0 % (0-3); HEMATOCRIT 45.2 % (36.0-47.0); HEMOGLOBIN 15.8 g/dL (12.0-15.5); LYMPH # 1.4 x10^3/uL (1.0-4.8); LYMPH % 18 % (24-48); MEAN CORPUSCULAR HEMOGLOBIN 32 pg (25-35); MEAN CORPUSCULAR HGB CONC 35 g/dL (31-37); MEAN CORPUSCULAR VOLUME 91 fL (79-100); MONO # 0.3 x10^3/uL (0.0-1.1); MONO % 3 % (0-9); NEUT # 6.2 x10^3/uL (1.8-7.7); NEUT % 79 % (31-73); PLATELET COUNT 176 x10^3/uL (140-400); RED BLOOD COUNT 4.97 x10^6/uL (3.50-5.40); RED CELL DISTRIBUTION WIDTH 13.7 % (11.5-14.5); WHITE BLOOD COUNT 7.9 x10^3/uL (4.0-11.0)
--- NOTE | 2021-01-07 12:38 | RAD ---
EXAM: Chest, single view. HISTORY: Short of breath. Covid 19. COMPARISON: 09/08/2020 FINDINGS: A frontal view of the chest is obtained. There is bilateral lower lobe atelectasis or inter stitial infiltrate. There is no consolidation, pleural effusion or pneumothorax. There is a stable ca rdiac silhouette. IMPRESSION: Bilateral lower lobe atelectasis or interstitial infiltrate. Electronically signed by: Sivan Hutchinson MD (01/07/2021 12:36 PM) [id number]
[2021-01-07 12:48] LABS: PROTHROMBIN TIME PATIENT 11.9 SEC (11.7-14.0)
[2021-01-07 12:50] LABS: CALCIUM 8.3 mg/dL (8.5-10.1); CREATININE 0.7 mg/dL (0.6-1.0); GFR 86.9; POTASSIUM 4.7 mmol/L (3.5-5.1)
[2021-01-07 12:55] LABS: ALBUMIN 3.2 g/dL (3.4-5.0); ALBUMIN/GLOBULIN RATIO 0.8 (1.0-1.7); TOTAL BILIRUBIN 0.3 mg/dL (0.2-1.0)
[2021-01-07] MEDS ORDERED: fentaNYL PF VIAL 100 MCG/2 ML VIAL IVP ONE (13:15)
[2021-01-07] MEDS ORDERED: IOHEXOL 350 MG/ML 100 ML VIAL. IV ONE (13:15)
[2021-01-07] MEDS ORDERED: CONTRAST GIVEN. MC PRN (13:30)
--- NOTE | 2021-01-07 14:50 | RAD ---
Examination: CT angiography chest with IV contrast HISTORY: History of shortness of breath, tachycardia COMPARISON: None TECHNIQUE: Axial CT angiographic images of chest were performed with IV contrast. Coronal and sagitta l 3-D MIP reformats are performed. Exposure: One or more of the following individualized dose reduction techniques were utilized for thi s examination: 1. Automated exposure control 2. Adjustment of the mA and/or kV according to patient size 3. Use of iterative reconstruction technique FINDINGS: The visualized thyroid gland grossly appears unremarkable. Central airways are patent. Heart size veda ssly appears unremarkable. The caliber of the aorta grossly appears unremarkable there is no evidence of filling defect identified in the main pulmonary arterial trunk and right and left main pulmonary arteries as well as the distal branch of the pulmonary arteries is limited. Mild enlarged bilateral h ilar lymph nodes with the largest measuring 2.1 cm on the right. Small enlarged mediastinal lymph nod es identified with largest measuring 1.7 cm in the pretracheal region. Moderate bilateral lung emphys ematous changes. There are patchy airspace and interstitial opacities identified in the right upper l obe, left upper lobe and in the bibasilar lungs likely infiltrates. Mild decreased attenuation noted in the liver likely hepatic steatosis. The spleen, adrenals grossly appears unremarkable Small hiatal hernia. Mild degenerative changes thoracic spine. IMPRESSION: 1. No evidence of central pulmonary embolism. 2. Patchy airspace and interstitial opacities identified in the right upper lobe, left upper lobe an d in the bibasilar lungs likely infiltrates. Follow-up to resolution. 3. Moderate bilateral lung emphysematous changes. 4. Enlarged mediastinal and bilateral hilar lymphadenopathy probably reactive. 5. Small hiatal hernia. Electronically signed by: Ramu Griffiths MD (01/07/2021 2:48 PM) [id number]
[2021-01-07 15:09] LABS: INFLUENZA A PATIENT NEGATIVE (NEGATIVE); INFLUENZA B PATIENT NEGATIVE (NEGATIVE)
[2021-01-07] MEDS ORDERED: cefTRIAXone IV Push 1 GM VIAL. IVP ONE (15:30)
[2021-01-07] MEDS ORDERED: AZITHRMYCN 500MG IVPB FOR OMNI 250 ML IV ONE (15:30)
[2021-01-07] MEDS: IPRATROPIUM/ALBUTEROL 20/100mcg/INH INHALER. INH SCH ×3 (16:00→22:54)
[2021-01-07 19:00] VITALS: BP 136/74
[2021-01-07] MEDS ORDERED: MELO15TA23 PO (20:33)
[2021-01-07] MEDS ORDERED: FLUT1BLS9 IH (20:33)
[2021-01-07] MEDS ORDERED: ACETAMINOPHEN 500 MG TABLET PO PRN (21:15)
[2021-01-07] MEDS ORDERED: ALBUTEROL SULFATE 2.5 MG/3 ML NEBU. INH PRN (21:15)
[2021-01-07] MEDS ORDERED: ALBUTEROL SULFATE 8GM INHALER. INH PRN (21:30)
[2021-01-07] MEDS: SENNOSIDES/DOCUSATE 8.6/50MG TABLET. PO SCH (22:00)
[2021-01-07] MEDS: FAMOTIDINE 20 MG TABLET. PO SCH (22:54)
[2021-01-07] MEDS: traMADol 50 MG TABLET PO PRN (22:55)
[2021-01-07] MEDS: CYCLOBENZAPRINE 10 MG TABLET. PO SCH (22:55)
[2021-01-07] MEDS: GABAPENTIN 400 MG CAPSULE. PO SCH (22:55)
[2021-01-07 23:00] VITALS: BP 98/72
[2021-01-07] MEDS: guaiFENesin/CODEINE 100mg/10mg 5 ML LIQUID PO PRN (23:20)
[2021-01-08 03:04] VITALS: BP 119/60
[2021-01-08] MEDS: IPRATROPIUM/ALBUTEROL 20/100mcg/INH INHALER. INH SCH ×5 (05:38→23:33)
[2021-01-08 07:00] VITALS: BP 138/75
[2021-01-08] MEDS ORDERED: IPRATRPIUM/ALBUTEROL 0.5/2.5MG 3 ML NEBU. NEB SCH (08:00)
[2021-01-08] MEDS ORDERED: BUDESONIDE 0.5 MG/2 ML NEBU. NEB SCH (08:00)
--- NOTE | 2021-01-08 08:13 | PDOC ---
Provider Note Date of Service: DATE: 01/08/21 TIME: 08:13 Provider Note [id number] Justifications for Admission Other Justification JACKI RAMON MD Jan 08, 2021 08:13
[2021-01-08] MEDS ORDERED: ALBUTEROL SULFATE 8GM INHALER. INH PRN (08:15)
[2021-01-08] MEDS: SENNOSIDES/DOCUSATE 8.6/50MG TABLET. PO SCH ×2 (08:33→21:16)
[2021-01-08] MEDS: GABAPENTIN 400 MG CAPSULE. PO SCH ×3 (08:34→21:16)
[2021-01-08] MEDS: CYCLOBENZAPRINE 10 MG TABLET. PO SCH ×3 (08:34→21:16)
[2021-01-08] MEDS: CITALOPRAM 20 MG TABLET. PO SCH (08:34)
[2021-01-08] MEDS: FAMOTIDINE 20 MG TABLET. PO SCH ×2 (08:34→21:16)
[2021-01-08] MEDS: NICOTINE 21MG PATCH. TD SCH (08:35)
[2021-01-08] MEDS: FLUTICASONE/VILANTEROL 100/25 INHALER. INH SCH (08:36)
[2021-01-08] MEDS: DEXAMETHASONE 4 MG TABLET PO SCH (08:41)
[2021-01-08] MEDS ORDERED: MELOXICAM 7.5 MG TABLET PO SCH (09:00)
--- NOTE | 2021-01-08 10:20 | HP ---
ADMIT DATE: 01/08/2021 CHIEF COMPLAINT: COVID. HISTORY OF PRESENT ILLNESS: A 55-year-old white female with known severe COPD, chronic tobacco abuse and recently discovered alpha-1 antitrypsin deficiency, has been followed at for her pulmonary problems and had a recent liver biopsy regarding the severity of her liver disease from the alpha-1 antitrypsin deficiency. She was told she "does not have cirrhosis". Her son developed COVID about a week ago and they live together and she developed malaise, weakness, fever, and anorexia about 5 days ago and had a recent positive test. She has not lost taste or smell, but has had increasing shortness of breath, dry cough without fever, hemoptysis, sputum production, vomiting, diarrhea or other symptoms. Chest x-ray showed mild interstitial infiltrates and she is hypoxic and has been given a dose of IV Decadron yesterday and is feeling somewhat better at this time. PAST HISTORY: Meds listed per the chart. ALLERGIES: LYRICA AND KLONOPIN. She does not use oxygen at home for her COPD at present. SOCIAL HISTORY: , still a heavy smoker, nondrinker, not employed, not physically active. FAMILY HISTORY: Unremarkable. REVIEW OF SYSTEMS: Unremarkable. OBJECTIVE: ENT: Moderate plethoric facies, otherwise unremarkable. NECK: Revealed no masses, JVD, or nodes. LUNGS: Coarse expiratory rhonchi and a few expiratory wheezes, without tachypnea or cough. CARDIOVASCULAR: Regular rate. No tachycardia or murmur. ABDOMEN: Obese, soft, benign and nontender. EXTREMITIES: She has 2+ clubbing present, reasonably good pedal pulses, mildly cyanotic nail beds. NEUROLOGIC: Physiologic and nonfocal. ASSESSMENT: 1. COVID-19 pneumonia superimposed on relatively severe chronic obstructive pulmonary disease and chronic tobacco abuse. She is not vaccinated against COVID. 2. Alpha-1 antitrypsin deficiency, recently discovered at with underlying liver disease as well as lung problems. 3. Fibromyalgia. PLAN: Continue oral dexamethasone. We will add remdesivir after Dr. Pappas or Ramon sees her. Respiratory treatments are Combivent and Breo and supportive care. She is certainly at high risk for severe progression of disease given her severe underlying lung disease. NAHUN/ALISA/JEFFREY DR: NAHUN/maame TID: [id number]
[2021-01-08 11:00] VITALS: BP 124/65
--- NOTE | 2021-01-08 12:21 | PDOC ---
PULMONARY PROGRESS NOTES DATE: 01/08/21 TIME: 12:21 Vitals Vital Signs Date Time Temp Pulse Resp B/P (MAP) Pulse Ox O2 Delivery O2 Flow Rate FiO2 01/08/21 11:00 97.6 98 20 124/65 (84) 84 Nasal Cannula 97.6 01/07/21 23:25 2.0 General: Alert HEENT: Other Lungs: Other Cardiovascular: S1, S2 Abdomen: Soft, Non-tender Extremities: No Edema Labs Laboratory Tests Test 01/07/21 12:03 01/07/21 12:05 01/07/21 14:30 SARS-CoV-2 Antigen (Rapid) Positive (NEGATIVE) White Blood Count 7.9 x10^3/uL (4.0-11.0) Red Blood Count 4.97 x10^6/uL (3.50-5.40) Hemoglobin 15.8 g/dL (12.0-15.5) Hematocrit 45.2 % (36.0-47.0) Mean Corpuscular Volume 91 fL (79-100) Mean Corpuscular Hemoglobin 32 pg (25-35) Mean Corpuscular Hemoglobin Concent 35 g/dL (31-37) Red Cell Distribution Width 13.7 % (11.5-14.5) Platelet Count 176 x10^3/uL (140-400) Neutrophils (%) (Auto) 79 % (31-73) Lymphocytes (%) (Auto) 18 % (24-48) Monocytes (%) (Auto) 3 % (0-9) Eosinophils (%) (Auto) 0 % (0-3) Basophils (%) (Auto) 0 % (0-3) Neutrophils # (Auto) 6.2 x10^3/uL (1.8-7.7) Lymphocytes # (Auto) 1.4 x10^3/uL (1.0-4.8) Monocytes # (Auto) 0.3 x10^3/uL (0.0-1.1) Eosinophils # (Auto) 0.0 x10^3/uL (0.0-0.7) Basophils # (Auto) 0.0 x10^3/uL (0.0-0.2) Prothrombin Time 11.9 SEC (11.7-14.0) Prothromb Time International Ratio 0.9 (0.8-1.1) Activated Partial Thromboplast Time 33 SEC (24-38) Sodium Level 134 mmol/L (136-145) Potassium Level 4.7 mmol/L (3.5-5.1) Chloride Level 97 mmol/L (98-107) Carbon Dioxide Level 28 mmol/L (21-32) Anion Gap 9 (6-14) Blood Urea Nitrogen 9 mg/dL (7-20) Creatinine 0.7 mg/dL (0.6-1.0) Estimated GFR (Cockcroft-Gault) 86.9 BUN/Creatinine Ratio 13 (6-20) Glucose Level 102 mg/dL (70-99) Calcium Level 8.3 mg/dL (8.5-10.1) Total Bilirubin 0.3 mg/dL (0.2-1.0) Aspartate Amino Transf (AST/SGOT) 99 U/L (15-37) Alanine Aminotransferase (ALT/SGPT) 77 U/L (14-59) Alkaline Phosphatase 177 U/L (46-116) Troponin I Quantitative < 0.017 ng/mL (0.000-0.055) Total Protein 7.0 g/dL (6.4-8.2) Albumin 3.2 g/dL (3.4-5.0) Albumin/Globulin Ratio 0.8 (1.0-1.7) Influenza Type A Antigen Negative (NEGATIVE) Influenza Type B Antigen Negative (NEGATIVE) Laboratory Tests Test 01/07/21 14:30 Influenza Type A Antigen Negative (NEGATIVE) Influenza Type B Antigen Negative (NEGATIVE) Medications Active Scripts Medications Dose Route/Sig Max Daily Dose Days Date Category Wixela 250-50 Inhub (Fluticasone Propion/Salmeterol) 1 Each Blst.w.dev 1 Puff IH BID 01/07/21 Reported Meloxicam 15 Mg Tablet 15 Mg PO DAILY 01/07/21 Reported Cyclobenzaprine Hcl 10 Mg Tablet 10 Mg PO TID 09/08/20 Reported Tramadol Hcl 50 Mg Tablet 100 Mg PO Q6HRS PRN 09/08/20 Reported Proair Hfa Inhaler (Albuterol Sulfate) 8.5 Gm Hfa.aer.ad 2 Puff IH PRN Q4-6HRS PRN 21 09/08/20 Reported Duoneb 0.5-3(2.5) Mg/3 Ml (Albuterol/Ipratropium) 3 Ml Ampul.neb 3 Ml NEB QID 09/08/20 Reported Famotidine 20 Mg Tablet 20 Mg PO BID 09/08/20 Reported Celexa (Citalopram Hydrobromide) 40 Mg Tablet 40 Mg PO DAILY 09/08/20 Reported Gabapentin 800 Mg Tablet 800 Mg PO TID 09/08/20 Reported Senokot-S Tablet (Sennosides/Docusate Sodium) 1 Each Tablet 1 Tab PO BID 30 01/19/19 Reported NICODERM CQ 21mg (Nicotine) 1 Each Patch.td24 1 Patch TP DAILY 01/19/19 Reported Ativan (Lorazepam) 2 Mg Tablet 2 Mg PO TID 01/19/19 Reported Tylenol Extra Strength (Acetaminophen) 500 Mg Tablet 500 Mg PO Q6HRS PRN 01/19/19 Reported Impression . Full note dictated Add remdesivir Continue current support DRAKE MON MD Jan 08, 2021 12:21
--- NOTE | 2021-01-08 12:41 | CONS ---
DATE OF CONSULTATION: 01/08/2021 ATTENDING PHYSICIAN: Jamin Castanon MD. REASON FOR CONSULTATION: The patient is seen in pulmonary consultation at the request of Dr. Castanon for abnormal x-ray, COVID-19 positivity. HISTORY OF PRESENT ILLNESS: The patient presents with a 3-4 day history of symptoms of being fatigued, increasing shortness of breath, fever, and some chills. She apparently has been exposed to COVID-19 from family members. Family members tested positive last Sunday. The patient has underlying COPD, tobacco dependent. Apparently, she was having some liver issues. She underwent alpha-1 antitrypsin, which she has been told has a deficiency. She comes in with increasing shortness of breath. X-ray revealed bilateral infiltrates. I was asked to see her in consultation. She has recently received steroids. She is also on empiric antibiotics. PAST MEDICAL HISTORY: Otherwise remarkable for tobacco dependent COPD, does not wear oxygen at home. She has had some liver issues with liver biopsies in the past. She has alpha-1 antitrypsin deficiency. She has never seen a water quality tester in the past. She has chronic back pain. She has had previous inguinal hernia repair, partial left nephrectomy, hypertension, underlying COPD. She has had cholecystectomy. There is also a history of borderline diabetes and fatty liver disease. She also has a history of panic disorder and anxiety disorder. ALLERGIES: LYRICA AND KLONOPIN. SOCIAL HISTORY: Currently, she smokes. She is unemployed. FAMILY HISTORY: Noncontributory. REVIEW OF SYSTEMS: As indicated above, otherwise a 10-point system was reviewed and negative. PHYSICAL EXAMINATION: VITAL SIGNS: Stable. She is currently on 4 liters of oxygen supplementation. HEENT: Eyes: The sclerae were nonicteric. NECK: Jugular venous distention was not elevated. No lymphadenopathy. CHEST: Full expansion. LUNGS: Clear. CARDIOVASCULAR: Regular rate and rhythm with S1, S2, no S3. ABDOMEN: Soft. EXTREMITIES: No clubbing, cyanosis or edema. LABORATORY DATA: Reviewed. White count was normal. She had leukopenia. Electrolytes: Sodium was slightly low, AST and ALT were elevated, alkaline phosphatase was elevated. IMPRESSION: 1. Acute hypoxemic respiratory failure. 2. COVID-19 viral pneumonia. 3. Liver disease. 4. Unvaccinated. 5. Alpha-1 antitrypsin deficiency, was recently discovered at , the patient being worked up for liver disease. 6. Multiple other comorbidities as indicated above. PLAN: 1. Continue dexamethasone. 2. Add remdesivir. 3. Continue DVT prophylaxis. 4. Home medications. 5. Monitor closely for any deterioration. I do appreciate the privilege in sharing in the patient's care. YOBANI/CHIVO DR: Dash TID: [id number]
[2021-01-08] MEDS ORDERED: REMDESIVIR LOAD in IV NORMAL SALINE 250ML TV IV ONE (13:00)
[2021-01-08 15:00] VITALS: BP 124/66
[2021-01-08] MEDS: guaiFENesin/CODEINE 100mg/10mg 5 ML LIQUID PO PRN (15:34)
[2021-01-08 19:00] VITALS: BP 115/68
[2021-01-08 23:00] VITALS: BP 107/58
[2021-01-09 02:56] VITALS: BP 115/70
[2021-01-09] MEDS: IPRATROPIUM/ALBUTEROL 20/100mcg/INH INHALER. INH SCH ×4 (05:51→23:09)
--- NOTE | 2021-01-09 05:55 | PDOC ---
PULMONARY PROGRESS NOTES DATE: 01/09/21 TIME: 05:54 Subjective Patient feels no worse continues shortness of breath no chest pain no pressure Vitals Vital Signs Date Time Temp Pulse Resp B/P (MAP) Pulse Ox O2 Delivery O2 Flow Rate FiO2 01/09/21 02:56 98.4 88 21 115/70 (85) 92 Nasal Cannula 3.0 98.4 ROS: No Nausea, No Chest Pain, No Abdominal Pain, No Increase Cough General: Alert HEENT: Other Lungs: Other Cardiovascular: S1, S2 Abdomen: Soft, Non-tender Neuro Exam: Alert Extremities: No Edema Skin: Warm Labs Laboratory Tests Test 01/07/21 12:03 01/07/21 12:05 01/07/21 14:30 SARS-CoV-2 Antigen (Rapid) Positive (NEGATIVE) White Blood Count 7.9 x10^3/uL (4.0-11.0) Red Blood Count 4.97 x10^6/uL (3.50-5.40) Hemoglobin 15.8 g/dL (12.0-15.5) Hematocrit 45.2 % (36.0-47.0) Mean Corpuscular Volume 91 fL (79-100) Mean Corpuscular Hemoglobin 32 pg (25-35) Mean Corpuscular Hemoglobin Concent 35 g/dL (31-37) Red Cell Distribution Width 13.7 % (11.5-14.5) Platelet Count 176 x10^3/uL (140-400) Neutrophils (%) (Auto) 79 % (31-73) Lymphocytes (%) (Auto) 18 % (24-48) Monocytes (%) (Auto) 3 % (0-9) Eosinophils (%) (Auto) 0 % (0-3) Basophils (%) (Auto) 0 % (0-3) Neutrophils # (Auto) 6.2 x10^3/uL (1.8-7.7) Lymphocytes # (Auto) 1.4 x10^3/uL (1.0-4.8) Monocytes # (Auto) 0.3 x10^3/uL (0.0-1.1) Eosinophils # (Auto) 0.0 x10^3/uL (0.0-0.7) Basophils # (Auto) 0.0 x10^3/uL (0.0-0.2) Prothrombin Time 11.9 SEC (11.7-14.0) Prothromb Time International Ratio 0.9 (0.8-1.1) Activated Partial Thromboplast Time 33 SEC (24-38) Sodium Level 134 mmol/L (136-145) Potassium Level 4.7 mmol/L (3.5-5.1) Chloride Level 97 mmol/L (98-107) Carbon Dioxide Level 28 mmol/L (21-32) Anion Gap 9 (6-14) Blood Urea Nitrogen 9 mg/dL (7-20) Creatinine 0.7 mg/dL (0.6-1.0) Estimated GFR (Cockcroft-Gault) 86.9 BUN/Creatinine Ratio 13 (6-20) Glucose Level 102 mg/dL (70-99) Calcium Level 8.3 mg/dL (8.5-10.1) Total Bilirubin 0.3 mg/dL (0.2-1.0) Aspartate Amino Transf (AST/SGOT) 99 U/L (15-37) Alanine Aminotransferase (ALT/SGPT) 77 U/L (14-59) Alkaline Phosphatase 177 U/L (46-116) Troponin I Quantitative < 0.017 ng/mL (0.000-0.055) Total Protein 7.0 g/dL (6.4-8.2) Albumin 3.2 g/dL (3.4-5.0) Albumin/Globulin Ratio 0.8 (1.0-1.7) Influenza Type A Antigen Negative (NEGATIVE) Influenza Type B Antigen Negative (NEGATIVE) Medications Active Scripts Medications Dose Route/Sig Max Daily Dose Days Date Category Wixela 250-50 Inhub (Fluticasone Propion/Salmeterol) 1 Each Blst.w.dev 1 Puff IH BID 01/07/21 Reported Meloxicam 15 Mg Tablet 15 Mg PO DAILY 01/07/21 Reported Cyclobenzaprine Hcl 10 Mg Tablet 10 Mg PO TID 09/08/20 Reported Tramadol Hcl 50 Mg Tablet 100 Mg PO Q6HRS PRN 09/08/20 Reported Proair Hfa Inhaler (Albuterol Sulfate) 8.5 Gm Hfa.aer.ad 2 Puff IH PRN Q4-6HRS PRN 21 09/08/20 Reported Duoneb 0.5-3(2.5) Mg/3 Ml (Albuterol/Ipratropium) 3 Ml Ampul.neb 3 Ml NEB QID 09/08/20 Reported Famotidine 20 Mg Tablet 20 Mg PO BID 09/08/20 Reported Celexa (Citalopram Hydrobromide) 40 Mg Tablet 40 Mg PO DAILY 09/08/20 Reported Gabapentin 800 Mg Tablet 800 Mg PO TID 09/08/20 Reported Senokot-S Tablet (Sennosides/Docusate Sodium) 1 Each Tablet 1 Tab PO BID 30 01/19/19 Reported NICODERM CQ 21mg (Nicotine) 1 Each Patch.td24 1 Patch TP DAILY 01/19/19 Reported Ativan (Lorazepam) 2 Mg Tablet 2 Mg PO TID 01/19/19 Reported Tylenol Extra Strength (Acetaminophen) 500 Mg Tablet 500 Mg PO Q6HRS PRN 01/19/19 Reported Impression . IMPRESSION: 1. Acute hypoxemic respiratory failure. 2. COVID-19 viral pneumonia. 3. Liver disease. 4. Unvaccinated. 5. Alpha-1 antitrypsin deficiency, was recently discovered at , the patient being worked up for liver disease. 6. Multiple other comorbidities as indicated above. Plan . Continue current support Dexamethasone Remdesivir Oxygen supplementation We will hold off on tocilizumab, liver chemistries elevated PLAN: 1. Continue dexamethasone. 2. Add remdesivir. 3. Continue DVT prophylaxis. 4. Home medications. 5. Monitor closely for any deterioration. I do appreciate the privilege in sharing in the patient's care. DRAKE MON MD Jan 09, 2021 05:55
[2021-01-09 06:02] VITALS: BP 124/70
[2021-01-09] MEDS: DEXAMETHASONE 4 MG TABLET PO SCH (08:47)
[2021-01-09] MEDS: SENNOSIDES/DOCUSATE 8.6/50MG TABLET. PO SCH ×2 (08:47→20:46)
[2021-01-09] MEDS: FAMOTIDINE 20 MG TABLET. PO SCH ×2 (08:47→20:46)
[2021-01-09] MEDS: CITALOPRAM 20 MG TABLET. PO SCH (08:47)
[2021-01-09] MEDS: CYCLOBENZAPRINE 10 MG TABLET. PO SCH ×3 (08:48→20:46)
[2021-01-09] MEDS: NICOTINE 21MG PATCH. TD SCH (08:48)
[2021-01-09] MEDS: GABAPENTIN 400 MG CAPSULE. PO SCH ×3 (08:48→20:46)
[2021-01-09] MEDS: FLUTICASONE/VILANTEROL 100/25 INHALER. INH SCH (08:49)
[2021-01-09] MEDS: guaiFENesin/CODEINE 100mg/10mg 5 ML LIQUID PO PRN ×3 (08:53→20:46)
[2021-01-09] MEDS: traMADol 50 MG TABLET PO PRN (09:00)
--- NOTE | 2021-01-09 10:23 | PDOC ---
Provider Note Date of Service: DATE: 01/09/21 TIME: 10:13 Provider Note vss, no temp, O2 noted- exam same, feels a little better re dexameth- labs same, add daily lovenox-on remdesivir also- rest same Justifications for Admission Other Justification JACKI RAMON MD Jan 09, 2021 10:23
[2021-01-09 11:00] VITALS: BP 106/67
[2021-01-09] MEDS: ENOXAPARIN 40 MG/0.4 ML SYRINGE. SQ SCH (12:06)
[2021-01-09] MEDS: REMDESIVIR 100mg in NORMAL SALINE 250ML X 4 DAYS IV SCH (14:12)
[2021-01-09 15:00] VITALS: BP 101/59
[2021-01-09 19:00] VITALS: BP 111/70
[2021-01-09 23:00] VITALS: BP 97/47
[2021-01-10 03:01] VITALS: BP 96/59
[2021-01-10] MEDS: IPRATROPIUM/ALBUTEROL 20/100mcg/INH INHALER. INH SCH ×3 (06:04→17:01)
[2021-01-10 07:00] VITALS: BP 114/62
--- NOTE | 2021-01-10 08:09 | PDOC ---
Provider Note Date of Service: DATE: 01/10/21 TIME: 08:08 Provider Note status same, dry cough, vss/no temp- will finish remdes 01/12, anita home on O2 then Justifications for Admission Other Justification JACKI RAMON MD Jan 10, 2021 08:09
[2021-01-10] MEDS: FLUTICASONE/VILANTEROL 100/25 INHALER. INH SCH (09:00)
--- NOTE | 2021-01-10 09:30 | PDOC ---
PULMONARY PROGRESS NOTES DATE: 01/10/21 TIME: 09:30 Subjective Patient feels slightly worse at times, increasing cough increasing shortness of breath Vitals Vital Signs Date Time Temp Pulse Resp B/P (MAP) Pulse Ox O2 Delivery O2 Flow Rate FiO2 01/10/21 07:00 98.0 82 20 114/62 (79) 90 Nasal Cannula 3.0 98.0 ROS: No Nausea, No Chest Pain, No Abdominal Pain, No Increase Cough General: Alert HEENT: Other Lungs: Other Cardiovascular: S1, S2 Abdomen: Soft, Non-tender Neuro Exam: Alert Extremities: No Edema Skin: Warm Medications Active Scripts Medications Dose Route/Sig Max Daily Dose Days Date Category Wixela 250-50 Inhub (Fluticasone Propion/Salmeterol) 1 Each Blst.w.dev 1 Puff IH BID 01/07/21 Reported Meloxicam 15 Mg Tablet 15 Mg PO DAILY 01/07/21 Reported Cyclobenzaprine Hcl 10 Mg Tablet 10 Mg PO TID 09/08/20 Reported Tramadol Hcl 50 Mg Tablet 100 Mg PO Q6HRS PRN 09/08/20 Reported Proair Hfa Inhaler (Albuterol Sulfate) 8.5 Gm Hfa.aer.ad 2 Puff IH PRN Q4-6HRS PRN 21 09/08/20 Reported Duoneb 0.5-3(2.5) Mg/3 Ml (Albuterol/Ipratropium) 3 Ml Ampul.neb 3 Ml NEB QID 09/08/20 Reported Famotidine 20 Mg Tablet 20 Mg PO BID 09/08/20 Reported Celexa (Citalopram Hydrobromide) 40 Mg Tablet 40 Mg PO DAILY 09/08/20 Reported Gabapentin 800 Mg Tablet 800 Mg PO TID 09/08/20 Reported Senokot-S Tablet (Sennosides/Docusate Sodium) 1 Each Tablet 1 Tab PO BID 30 01/19/19 Reported NICODERM CQ 21mg (Nicotine) 1 Each Patch.td24 1 Patch TP DAILY 01/19/19 Reported Ativan (Lorazepam) 2 Mg Tablet 2 Mg PO TID 01/19/19 Reported Tylenol Extra Strength (Acetaminophen) 500 Mg Tablet 500 Mg PO Q6HRS PRN 01/19/19 Reported Impression . IMPRESSION: 1. Acute hypoxemic respiratory failure. 2. COVID-19 viral pneumonia. 3. Liver disease. 4. Unvaccinated. 5. Alpha-1 antitrypsin deficiency, was recently discovered at , the patient being worked up for liver disease. 6. Multiple other comorbidities as indicated above. 7. Acute exacerbation of COPD Plan . Updated 01/10 Continue current support Dexamethasone Remdesivir Updated 01/09 Continue current support Dexamethasone Remdesivir Oxygen supplementation We will hold off on tocilizumab, liver chemistries elevated DRAKE MON MD Jan 10, 2021 09:30
[2021-01-10] MEDS: DEXAMETHASONE 4 MG TABLET PO SCH (10:14)
[2021-01-10] MEDS: GABAPENTIN 400 MG CAPSULE. PO SCH ×3 (10:15→20:36)
[2021-01-10] MEDS: CITALOPRAM 20 MG TABLET. PO SCH (10:15)
[2021-01-10] MEDS: FAMOTIDINE 20 MG TABLET. PO SCH ×2 (10:16→20:36)
[2021-01-10] MEDS: SENNOSIDES/DOCUSATE 8.6/50MG TABLET. PO SCH ×2 (10:16→20:36)
[2021-01-10] MEDS: NICOTINE 21MG PATCH. TD SCH (10:17)
[2021-01-10] MEDS: ENOXAPARIN 40 MG/0.4 ML SYRINGE. SQ SCH (10:17)
[2021-01-10] MEDS: CYCLOBENZAPRINE 10 MG TABLET. PO SCH ×3 (10:19→20:36)
[2021-01-10 11:00] VITALS: BP 110/80
--- NOTE | 2021-01-10 11:33 | NUR ---
SW following. Discussed with RN, pt from home with family, on 2-4L (does not use oxygen at home), regular diet. COVID-19 positive. RN advised no SW needs at this time. SW will continue to follow.
[2021-01-10] MEDS: REMDESIVIR 100mg in NORMAL SALINE 250ML X 4 DAYS IV SCH (13:06)
[2021-01-10 15:00] VITALS: BP 103/58
[2021-01-10 16:36] LABS: ALBUMIN 2.4 g/dL (3.4-5.0); ALBUMIN/GLOBULIN RATIO 0.6 (1.0-1.7); C-REACTIVE PROTEIN 17.7 mg/L (0-3.3); CALCIUM 7.8 mg/dL (8.5-10.1); CREATININE 0.7 mg/dL (0.6-1.0); GFR 86.9; POTASSIUM 4.5 mmol/L (3.5-5.1); TOTAL BILIRUBIN 0.3 mg/dL (0.2-1.0); TOTAL PROTEIN 6.7 g/dL (6.4-8.2)
--- NOTE | 2021-01-10 17:19 | EKG ---
[facility] [address] [place] [address] Test Date: 2021-01-10 Test Time: 17:14:50 Pat Name: YUDELKA CHOI Department: Room: 574 1 Gender: F Financial Representative: BEATA : 1965 Requested By: DIGNA SHARIF Order Number: [id number] Reading MD: Glynn Alvarez MD Measurements Intervals [place] Rate: 84 P: 50 OK: 136 QRS: 33 QRSD: 82 T: 54 QT: 368 QTc: 438 Interpretive Statements SINUS RHYTHM Electronically Signed On 01-17-2021 12:02:25 CDT by Glynn Alvarez MD
[2021-01-10 19:00] VITALS: BP 124/68
[2021-01-10 22:55] VITALS: BP 128/72
[2021-01-11] MEDS: IPRATROPIUM/ALBUTEROL 20/100mcg/INH INHALER. INH SCH ×4 (00:47→17:18)
[2021-01-11 03:19] VITALS: BP 115/61
[2021-01-11 07:00] VITALS: BP 134/70
--- NOTE | 2021-01-11 08:07 | PDOC ---
Provider Note Date of Service: DATE: 01/11/21 TIME: 08:06 Provider Note feels same, still dry cough, no temp- higher transaminases noted, ? remdesivir- will follow daily, dc same if worse re underlying alpha-1 antitrypsin dx per ku Justifications for Admission Other Justification JACKI RAMON MD Jan 11, 2021 08:07
[2021-01-11] MEDS: DEXAMETHASONE 4 MG TABLET PO SCH (08:08)
--- NOTE | 2021-01-11 08:52 | PDOC ---
PULMONARY PROGRESS NOTES DATE: 01/11/21 TIME: 08:52 Subjective Patient laying in bed, not motivated to get up. Currently on 6 L not more short of breath Vitals Vital Signs Date Time Temp Pulse Resp B/P (MAP) Pulse Ox O2 Delivery O2 Flow Rate FiO2 01/11/21 08:21 Nasal Cannula 6.0 01/11/21 07:00 97.5 60 134/70 (91) 95 97.5 01/10/21 22:55 18 ROS: No Nausea, No Chest Pain, No Abdominal Pain, No Increase Cough General: Alert HEENT: Other Lungs: Other Cardiovascular: S1, S2 Abdomen: Soft, Non-tender Neuro Exam: Alert Extremities: No Edema Skin: Warm Labs Laboratory Tests Test 01/10/21 16:17 Sodium Level 137 mmol/L (136-145) Potassium Level 4.5 mmol/L (3.5-5.1) Chloride Level 100 mmol/L (98-107) Carbon Dioxide Level 33 mmol/L (21-32) Anion Gap 4 (6-14) Blood Urea Nitrogen 12 mg/dL (7-20) Creatinine 0.7 mg/dL (0.6-1.0) Estimated GFR (Cockcroft-Gault) 86.9 BUN/Creatinine Ratio 17 (6-20) Glucose Level 144 mg/dL (70-99) Calcium Level 7.8 mg/dL (8.5-10.1) Total Bilirubin 0.3 mg/dL (0.2-1.0) Aspartate Amino Transf (AST/SGOT) 269 U/L (15-37) Alanine Aminotransferase (ALT/SGPT) 185 U/L (14-59) Alkaline Phosphatase 209 U/L (46-116) C-Reactive Protein, Quantitative 17.7 mg/L (0-3.3) Total Protein 6.7 g/dL (6.4-8.2) Albumin 2.4 g/dL (3.4-5.0) Albumin/Globulin Ratio 0.6 (1.0-1.7) Laboratory Tests Test 01/10/21 16:17 Sodium Level 137 mmol/L (136-145) Potassium Level 4.5 mmol/L (3.5-5.1) Chloride Level 100 mmol/L (98-107) Carbon Dioxide Level 33 mmol/L (21-32) Anion Gap 4 (6-14) Blood Urea Nitrogen 12 mg/dL (7-20) Creatinine 0.7 mg/dL (0.6-1.0) Estimated GFR (Cockcroft-Gault) 86.9 BUN/Creatinine Ratio 17 (6-20) Glucose Level 144 mg/dL (70-99) Calcium Level 7.8 mg/dL (8.5-10.1) Total Bilirubin 0.3 mg/dL (0.2-1.0) Aspartate Amino Transf (AST/SGOT) 269 U/L (15-37) Alanine Aminotransferase (ALT/SGPT) 185 U/L (14-59) Alkaline Phosphatase 209 U/L (46-116) C-Reactive Protein, Quantitative 17.7 mg/L (0-3.3) Total Protein 6.7 g/dL (6.4-8.2) Albumin 2.4 g/dL (3.4-5.0) Albumin/Globulin Ratio 0.6 (1.0-1.7) Medications Active Scripts Medications Dose Route/Sig Max Daily Dose Days Date Category Wixela 250-50 Inhub (Fluticasone Propion/Salmeterol) 1 Each Blst.w.dev 1 Puff IH BID 01/07/21 Reported Meloxicam 15 Mg Tablet 15 Mg PO DAILY 01/07/21 Reported Cyclobenzaprine Hcl 10 Mg Tablet 10 Mg PO TID 09/08/20 Reported Tramadol Hcl 50 Mg Tablet 100 Mg PO Q6HRS PRN 09/08/20 Reported Proair Hfa Inhaler (Albuterol Sulfate) 8.5 Gm Hfa.aer.ad 2 Puff IH PRN Q4-6HRS PRN 21 09/08/20 Reported Duoneb 0.5-3(2.5) Mg/3 Ml (Albuterol/Ipratropium) 3 Ml Ampul.neb 3 Ml NEB QID 09/08/20 Reported Famotidine 20 Mg Tablet 20 Mg PO BID 09/08/20 Reported Celexa (Citalopram Hydrobromide) 40 Mg Tablet 40 Mg PO DAILY 09/08/20 Reported Gabapentin 800 Mg Tablet 800 Mg PO TID 09/08/20 Reported Senokot-S Tablet (Sennosides/Docusate Sodium) 1 Each Tablet 1 Tab PO BID 30 01/19/19 Reported NICODERM CQ 21mg (Nicotine) 1 Each Patch.td24 1 Patch TP DAILY 01/19/19 Reported Ativan (Lorazepam) 2 Mg Tablet 2 Mg PO TID 01/19/19 Reported Tylenol Extra Strength (Acetaminophen) 500 Mg Tablet 500 Mg PO Q6HRS PRN 01/19/19 Reported Impression . IMPRESSION: 1. Acute hypoxemic respiratory failure. 2. COVID-19 viral pneumonia. 3. Liver disease. 4. Unvaccinated. 5. Alpha-1 antitrypsin deficiency, was recently discovered at , the patient being worked up for liver disease. 6. Multiple other comorbidities as indicated above. 7. Acute exacerbation of COPD Plan . Updated 01/11 Continue oxygen supplementation LFTs increasing will discontinue remdesivir Patient to get up to chair updated 01/10 Continue current support Dexamethasone Remdesivir Updated 01/09 Continue current support Dexamethasone Remdesivir Oxygen supplementation We will hold off on tocilizumab, liver chemistries elevated DRAKE MON MD Jan 11, 2021 08:52
[2021-01-11] MEDS: FAMOTIDINE 20 MG TABLET. PO SCH ×2 (09:12→20:49)
[2021-01-11] MEDS: GABAPENTIN 400 MG CAPSULE. PO SCH ×3 (09:12→20:49)
[2021-01-11] MEDS: FLUTICASONE/VILANTEROL 100/25 INHALER. INH SCH (09:12)
[2021-01-11] MEDS: CITALOPRAM 20 MG TABLET. PO SCH (09:13)
[2021-01-11] MEDS: NICOTINE 21MG PATCH. TD SCH (09:13)
[2021-01-11] MEDS: SENNOSIDES/DOCUSATE 8.6/50MG TABLET. PO SCH ×2 (09:13→20:49)
[2021-01-11] MEDS: CYCLOBENZAPRINE 10 MG TABLET. PO SCH ×3 (09:13→20:49)
[2021-01-11] MEDS: ENOXAPARIN 40 MG/0.4 ML SYRINGE. SQ SCH (10:39)
[2021-01-11 11:00] VITALS: BP 132/71
[2021-01-11] MEDS: REMDESIVIR 100mg in NORMAL SALINE 250ML X 4 DAYS IV SCH (12:53)
[2021-01-11 15:00] VITALS: BP 115/63
[2021-01-11 19:00] VITALS: BP 131/77
[2021-01-11 23:20] VITALS: BP 107/52
[2021-01-12] MEDS: IPRATROPIUM/ALBUTEROL 20/100mcg/INH INHALER. INH SCH ×3 (00:11→11:32)
[2021-01-12 03:00] VITALS: BP 109/61
[2021-01-12 07:00] VITALS: BP 101/59
[2021-01-12] MEDS: DEXAMETHASONE 4 MG TABLET PO SCH (08:18)
--- NOTE | 2021-01-12 08:18 | PDOC ---
Provider Note Date of Service: DATE: 01/12/21 TIME: 08:16 Provider Note home ok if O2 can be arranged and ok w/ pulm, dictated , off remdes re transamitis worse Justifications for Admission Other Justification JACKI RAMON MD Jan 12, 2021 08:17
[2021-01-12 08:21] LABS: ALBUMIN 2.4 g/dL (3.4-5.0); DIRECT BILIRUBIN 0.2 mg/dL (0.0-0.2); TOTAL BILIRUBIN 0.5 mg/dL (0.2-1.0); TOTAL PROTEIN 6.6 g/dL (6.4-8.2)
--- NOTE | 2021-01-12 08:21 | PDOC ---
Provider Note Date of Service: DATE: 01/12/21 TIME: 08:19 Provider Note [id number] Justifications for Admission Other Justification JACKI RAMON MD Jan 12, 2021 08:21
--- NOTE | 2021-01-12 08:49 | DS ---
DATE OF DISCHARGE: 01/12/2021 HOSPITAL SUMMARY: The patient was admitted with known COVID with bilateral interstitial infiltrates and underlying COPD. Her transaminases were mildly elevated on admission consistent with her known alpha-1 antitrypsin-induced liver disease and then went up under the treatment with remdesivir and the drug was discontinued after 4 doses. CBC was unremarkable. COVID was positive. Flu serology was negative. Chest x-ray and CT of the chest showed no pulmonary emboli with bilateral lower lobe infiltrates were consistent with COVID. She received oral Decadron while in the hospital as well, respiratory treatments and is generally stable. She will be discharged later today if home oxygen can be arranged with adequate flow based on the upcoming 6-minute walk. FINAL DIAGNOSES: 1. COVID-induced pneumonia. 2. Transaminitis from underlying alpha-1 antitrypsin deficiency and perhaps a secondary toxicity from remdesivir. 3. Chronic obstructive pulmonary disease. OPERATIONS, PROCEDURES, COMPLICATIONS: None. CONSULTATION: Андрей Navarro MD DISPOSITION: She will take 5 more days of Decadron 6 mg daily as her only new medication. She will continue all home medications including the use of Wixela inhaler and Combivent per nebulizer q.4 hours p.r.n. Oxygen will be arranged based on 6-minute walk. Follow up with [facility] regarding her liver and lung disease as she follows them there now and her prognosis is very guarded given her underlying severe COPD, tobacco abuse, liver disease in COVID. She is recommended to encourage vaccination from COVID in the next 3-4 months when she recovers. YARED DR: Didi TID: [id number]
--- NOTE | 2021-01-12 08:52 | PDOC ---
PULMONARY PROGRESS NOTES DATE: 01/12/21 TIME: 08:49 Subjective Patient feels better, not more short of air Vitals Vital Signs Date Time Temp Pulse Resp B/P (MAP) Pulse Ox O2 Delivery O2 Flow Rate FiO2 01/12/21 08:23 Nasal Cannula 6.0 01/12/21 07:00 98.0 66 17 101/59 (73) 93 98.0 ROS: No Nausea, No Chest Pain, No Abdominal Pain, No Increase Cough General: Alert HEENT: Other Lungs: Other Cardiovascular: S1, S2 Abdomen: Soft, Non-tender Neuro Exam: Alert Extremities: No Edema Skin: Warm Labs Laboratory Tests Test 01/10/21 16:17 01/12/21 07:15 Sodium Level 137 mmol/L (136-145) Potassium Level 4.5 mmol/L (3.5-5.1) Chloride Level 100 mmol/L (98-107) Carbon Dioxide Level 33 mmol/L (21-32) Anion Gap 4 (6-14) Blood Urea Nitrogen 12 mg/dL (7-20) Creatinine 0.7 mg/dL (0.6-1.0) Estimated GFR (Cockcroft-Gault) 86.9 BUN/Creatinine Ratio 17 (6-20) Glucose Level 144 mg/dL (70-99) Calcium Level 7.8 mg/dL (8.5-10.1) Total Bilirubin 0.3 mg/dL (0.2-1.0) 0.5 mg/dL (0.2-1.0) Aspartate Amino Transf (AST/SGOT) 269 U/L (15-37) 157 U/L (15-37) Alanine Aminotransferase (ALT/SGPT) 185 U/L (14-59) 169 U/L (14-59) Alkaline Phosphatase 209 U/L (46-116) 176 U/L (46-116) C-Reactive Protein, Quantitative 17.7 mg/L (0-3.3) Total Protein 6.7 g/dL (6.4-8.2) 6.6 g/dL (6.4-8.2) Albumin 2.4 g/dL (3.4-5.0) 2.4 g/dL (3.4-5.0) Albumin/Globulin Ratio 0.6 (1.0-1.7) Direct Bilirubin 0.2 mg/dL (0.0-0.2) Laboratory Tests Test 01/12/21 07:15 Total Bilirubin 0.5 mg/dL (0.2-1.0) Direct Bilirubin 0.2 mg/dL (0.0-0.2) Aspartate Amino Transf (AST/SGOT) 157 U/L (15-37) Alanine Aminotransferase (ALT/SGPT) 169 U/L (14-59) Alkaline Phosphatase 176 U/L (46-116) Total Protein 6.6 g/dL (6.4-8.2) Albumin 2.4 g/dL (3.4-5.0) Medications Active Scripts Medications Dose Route/Sig Max Daily Dose Days Date Category Wixela 250-50 Inhub (Fluticasone Propion/Salmeterol) 1 Each Blst.w.dev 1 Puff IH BID 01/07/21 Reported Meloxicam 15 Mg Tablet 15 Mg PO DAILY 01/07/21 Reported Cyclobenzaprine Hcl 10 Mg Tablet 10 Mg PO TID 09/08/20 Reported Tramadol Hcl 50 Mg Tablet 100 Mg PO Q6HRS PRN 09/08/20 Reported Proair Hfa Inhaler (Albuterol Sulfate) 8.5 Gm Hfa.aer.ad 2 Puff IH PRN Q4-6HRS PRN 21 09/08/20 Reported Duoneb 0.5-3(2.5) Mg/3 Ml (Albuterol/Ipratropium) 3 Ml Ampul.neb 3 Ml NEB QID 09/08/20 Reported Famotidine 20 Mg Tablet 20 Mg PO BID 09/08/20 Reported Celexa (Citalopram Hydrobromide) 40 Mg Tablet 40 Mg PO DAILY 09/08/20 Reported Gabapentin 800 Mg Tablet 800 Mg PO TID 09/08/20 Reported Senokot-S Tablet (Sennosides/Docusate Sodium) 1 Each Tablet 1 Tab PO BID 30 01/19/19 Reported NICODERM CQ 21mg (Nicotine) 1 Each Patch.td24 1 Patch TP DAILY 01/19/19 Reported Ativan (Lorazepam) 2 Mg Tablet 2 Mg PO TID 01/19/19 Reported Tylenol Extra Strength (Acetaminophen) 500 Mg Tablet 500 Mg PO Q6HRS PRN 01/19/19 Reported Impression . IMPRESSION: 1. Acute hypoxemic respiratory failure. 2. COVID-19 viral pneumonia. 3. Liver disease. 4. Unvaccinated. 5. Alpha-1 antitrypsin deficiency, was recently discovered at , the patient being worked up for liver disease. 6. Multiple other comorbidities as indicated above. 7. Acute exacerbation of COPD Plan . Updated 01/12 Patient reassured that with time she will improve Okay to discharge Follow-up with me in March 6-minute walk prior to discharge updated 01/11 Continue oxygen supplementation LFTs increasing will discontinue remdesivir Patient to get up to chair DRAKE MON MD Jan 12, 2021 08:52
[2021-01-12] MEDS: FAMOTIDINE 20 MG TABLET. PO SCH (09:23)
[2021-01-12] MEDS: CITALOPRAM 20 MG TABLET. PO SCH (09:23)
[2021-01-12] MEDS: FLUTICASONE/VILANTEROL 100/25 INHALER. INH SCH (09:23)
[2021-01-12] MEDS: NICOTINE 21MG PATCH. TD SCH (09:24)
[2021-01-12] MEDS: SENNOSIDES/DOCUSATE 8.6/50MG TABLET. PO SCH (09:24)
[2021-01-12] MEDS: CYCLOBENZAPRINE 10 MG TABLET. PO SCH ×2 (09:24→13:43)
[2021-01-12] MEDS: GABAPENTIN 400 MG CAPSULE. PO SCH ×2 (09:24→13:43)
[2021-01-12 11:00] VITALS: BP 101/71
[2021-01-12] MEDS: ENOXAPARIN 40 MG/0.4 ML SYRINGE. SQ SCH (11:07)
--- NOTE | 2021-01-12 11:56 | NUR ---
SS following for discharge planning. SS reviewed pt chart and discussed with pt RN. Pt is from home with family and is currently requiring oxygen at six liters nasal canula. COVID19 positive. Pt has no home oxygen. Discharge order on the chart for home with self care. SS currently awaiting six minute walk results and will proceed accordingly. Addendum: 01/12/21 at 1514 by ARLET CHOUDHURY SS Script received for oxygen. SS phoned and faxed script and clinical to [facility], ; fax [phone]. Oxygen tanks provided for home.
--- NOTE | 2021-01-12 16:51 | NUR ---
Pt left unit at 1650 by wheelchair via private vehicle. Pt's IV removed without complications, belongings returned. Discharge paperwork discussed with pt, including medications, follow-up, and teaching. COVID instructions provided. O2 tanks sent with pt. Additional questions addressed.
== END 2021-01-12 16:50 | disposition home or self-care (01) | DRG 177 ==
LOC: ER 11:24 → 5 SOUTH 15:35
PROVIDERS: ADMIT Family Medicine; ATTEND Family Medicine
PROC: XW033E5 Introduction of Remdesivir Anti-infective into Peripheral Vein, Percutaneous Approach, New Technology Group 5 (ICD-10-PCS; principal; 2021-01-08)
DX: U07.1 COVID-19 (principal); J12.82 Pneumonia due to coronavirus disease 2019; J96.01 Acute respiratory failure with hypoxia; J44.0 Chronic obstructive pulmonary disease with (acute) lower respiratory infection; J44.1 Chronic obstructive pulmonary disease with (acute) exacerbation; J98.11 Atelectasis; E88.01 Alpha-1-antitrypsin deficiency; F17.200 Nicotine dependence, unspecified, uncomplicated; F41.0 Panic disorder [episodic paroxysmal anxiety]; I12.9 Hypertensive chronic kidney disease with stage 1 through stage 4 chronic kidney disease, or unspecified chronic kidney disease; K44.9 Diaphragmatic hernia without obstruction or gangrene; M79.7 Fibromyalgia; N18.9 Chronic kidney disease, unspecified; G89.29 Other chronic pain; K21.9 Gastro-esophageal reflux disease without esophagitis; M54.2 Cervicalgia; M54.9 Dorsalgia, unspecified; R53.81 Other malaise; Z85.528 Personal history of other malignant neoplasm of kidney; Z90.49 Acquired absence of other specified parts of digestive tract; Z90.5 Acquired absence of kidney; Z88.8 Allergy status to other drugs, medicaments and biological substances
CPT/HCPCS: 36415; 71045; 71275; 80053; 80076; 84484; 85025; 85610; 85730; 86140; 87426; 87804; 93005; 94618; 96365; 96375; J0456; J0696; J1100; J1650; J3010; J7050; Q9967; 99285-25; G0378; J7030

== ENCOUNTER 2021-07-06 17:26 | Inpatient (IN) | payer OTHER ==
[~2021-07-06] VITALS: Ht 157.5 cm; Wt 88.6 kg
[~2021-07-06 17:26] MED LIST changes: +CYCL10TA19 PO; -CYCL10TA2 PO; +FLUT1BLS9 IH; +MELO15TA23 PO
[2021-07-06] MEDS ORDERED: MORPHINE SULFATE 4 MG/ML INJ. IV/SQ PRN (18:00)
[2021-07-06] MEDS ORDERED: ASPIRIN 325 MG TABLET PO ONE (18:00)
[2021-07-06 18:04] LABS: BASO # 0.2 x10^3/uL (0.0-0.2); BASO % 1 % (0-3); EOS # 0.2 x10^3/uL (0.0-0.7); EOS % 1 % (0-3); HEMATOCRIT 48.6 % (36.0-47.0); LYMPH # 4.1 x10^3/uL (1.0-4.8); LYMPH % 32 % (24-48); MEAN CORPUSCULAR HEMOGLOBIN 31 pg (25-35); MEAN CORPUSCULAR HGB CONC 35 g/dL (31-37); MEAN CORPUSCULAR VOLUME 90 fL (79-100); MONO # 0.7 x10^3/uL (0.0-1.1); MONO % 6 % (0-9); NEUT # 7.6 x10^3/uL (1.8-7.7); NEUT % 60 % (31-73); PLATELET COUNT 354 x10^3/uL (140-400); RED BLOOD COUNT 5.42 x10^6/uL (3.50-5.40); RED CELL DISTRIBUTION WIDTH 13.6 % (11.5-14.5); WHITE BLOOD COUNT 12.7 x10^3/uL (4.0-11.0)
[2021-07-06 18:20] LABS: CALCIUM 9.8 mg/dL (8.5-10.1); CREATININE 0.7 mg/dL (0.6-1.0); GFR 86.6; POTASSIUM 4.2 mmol/L (3.5-5.1)
[2021-07-06] MEDS: NITROGLYCERIN SUBLINGUAL 0.4 MG BOTTLE OF 25. SL PRN ×2 (18:24→18:41)
[2021-07-06 18:26] LABS: ALBUMIN 3.9 g/dL (3.4-5.0); ALBUMIN/GLOBULIN RATIO 0.8 (1.0-1.7); MAGNESIUM 2.1 mg/dL (1.8-2.4); TOTAL BILIRUBIN 0.4 mg/dL (0.2-1.0)
--- NOTE | 2021-07-06 18:46 | RAD ---
XR CHEST 1V INDICATION: chest pain . COMPARISON STUDY: None. FINDINGS: Lungs: Normal lung volume. No pulmonary mass or consolidation. The tracheobronchial tree and hilar st ructures are normal. Pleura: No pleural effusion or pneumothorax. Heart and Mediastinum: The cardiomediastinal silhouette is normal. The great vessels of the thorax ar e normal. Bones and Soft Tissues: The bones and soft tissues are within normal limits. IMPRESSION: No acute cardiopulmonary process. Electronically signed by: Pablo Vera MD (07/06/2021 6:43 PM) [facility] [place]
[2021-07-06 18:47] LABS: BARBITURATES NEG (NEG); BENZODIAZEPINES POS (NEG); CANNABINOIDS NEG (NEG); COCAINE NEG (NEG); METHADONE NEG (NEG); OPIATES NEG (NEG); PHENCYCLIDINE NEG (NEG)
[2021-07-06 18:51] LABS: AMPHETAMINE/METHAMPHETAMINE NEG (NEG); BACTERIA,URINE FEW /HPF (0-FEW); WBC,URINE 0 /HPF (0-4)
--- NOTE | 2021-07-06 21:11 | PHYS DOC ---
Past Medical History Past Medical History: Anxiety, Cancer, COPD, Fibromyalgia, GERD, Renal Disease, Other Additional Past Medical Histor: LIVER NODULES,KIDNEY CA,CHRONIC NECK/BACK PAIN,ASPERGERS,CKD ALPHA I DEF, Past Surgical History: Cholecystectomy, Other Additional Past Surgical Histo: PARTIAL L NEPHRECTOMY, HERNIA REPAIR Smoking Status: Current Every Day Smoker Alcohol Use: Occasionally Drug Use: None General Adult EDM: Chief Complaint: HYPERTENSION HPI: HPI: Patient is a 56 year old female with history of COPD oxygen dependent though she does not use her oxygen as prescribed, hypertension, kidney disease, anxiety, who presents the ED today to be evaluated for chest pain, headache and jaw pain symptoms are intermittent and begun one week ago. She also states her blood pressure has been up and down for the last 1 week. Patient describes the chest pain as sharp and the headache as throbbing. Patient reports taking Xanax which relieves her symptoms. She states she is worried her carotid could be occluded. Denies a headache being the worst headache in her life. Review of Systems: Review of Systems: Constitutional: Denies fever or chills. [] Eyes: Denies change in visual acuity. [] HENT: Denies nasal congestion or sore throat. [] Respiratory: Denies cough or shortness of breath. [] Cardiovascular: Reports chest pain, left jaw pain, left neck pain GI: Denies abdominal pain, nausea, vomiting, bloody stools or diarrhea. [] : Denies dysuria. [] Musculoskeletal: Reports left sided neck pain Integument: Denies rash. [] Neurologic: Reports headache, denies focal weakness or sensory changes. [] Psychiatric: Denies depression or anxiety. [] Heart Score: C/O Chest Pain: Yes Risk Factors: Risk Factors: DM, Current or recent (<one month) smoker, HTN, HLP, family history of CAD, obesity. Risk Scores: Score 0 - 3: 2.5% MACE over next 6 weeks - Discharge Home Score 4 - 6: 20.3% MACE over next 6 weeks - Admit for Clinical Observation Score 7 - 10: 72.7% MACE over next 6 weeks - Early Invasive Strategies Current Medications: Current Medications Medications (Trade) Dose Ordered Sig/Nathen Start Time Stop Time Status Last Admin Dose Admin Aspirin (Stephen Aspirin) 325 mg 1X ONCE 07/06/21 18:00 07/06/21 18:01 DC 07/06/21 18:24 325 MG Morphine Sulfate (Morphine Sulfate) 4 mg PRN Q15MIN PRN 07/06/21 18:00 07/06/21 23:59 07/06/21 18:24 4 MG Nitroglycerin (Nitrostat) 0.4 mg PRN Q5MIN PRN 07/06/21 18:00 07/07/21 17:59 07/06/21 18:41 0.4 MG Allergies: Allergies: Allergies Coded Allergies Type Severity Reaction Last Updated Verified pregabalin Adverse Reaction Intermediate 02/06/19 Yes clonazepam Adverse Reaction Mild Nausea and Vomiting 02/06/19 Yes Physical Exam: PE: Constitutional: Well developed, well nourished, no acute distress, non-toxic appearance. [] HENT: Normocephalic, atraumatic, bilateral external ears normal, oropharynx moist, no oral exudates, nose normal. [] Eyes: PERRLA, EOMI, conjunctiva normal, no discharge. [] Neck: Normal range of motion, no tenderness, supple, no stridor. [] Cardiovascular:Heart rate regular rhythm, no murmur [] Lungs & Thorax: Diminished breath sounds posteriorly Abdomen: Bowel sounds normal, soft, no tenderness, no masses, no pulsatile masses. [] Skin: Warm, dry, no erythema, no rash. [] Back: No tenderness, no CVA tenderness. [] Extremities: No tenderness, no cyanosis, no clubbing, ROM intact, no edema. [] Neurologic: Alert and oriented X 3, normal motor function, normal sensory function, no focal deficits noted. [] Psychologic: Affect normal, judgement normal, mood normal. [] Current Patient Data: Labs: Laboratory Tests Test 07/06/21 17:40 07/06/21 17:59 Urine Collection Type Void Urine Color (Auto) Colorless Urine Turbidity Clear Urine pH (Auto) 5.0 (<5.0-8.0) Urine Specific [place] 1.005 (1.000-1.030) Urine Protein (Auto) Negative mg/dL (Negative) Urine Glucose (Auto)(UA) Negative mg/dL (Negative) Urine Ketones (Auto) Negative mg/dL (Negative) Urine Blood (Auto) Small (Negative) Urine Nitrite Negative (Negative) Urine Bilirubin (Auto) Negative (Negative) Urine Urobilinogen (Auto) Normal mg/dL (Normal) Urine Leukocyte Esterase (Auto) Negative (Negative) Urine RBC 1-2 /HPF (0-2) Urine WBC 0 /HPF (0-4) Urine Squamous Epithelial Cells Few /LPF Urine Bacteria Few /HPF (0-FEW) Urine Opiates Screen Neg (NEG) Urine Methadone Screen Neg (NEG) Urine Barbiturates Neg (NEG) Urine Phencyclidine Screen Neg (NEG) Urine Amphetamine/Methamphetamine Neg (NEG) Urine Benzodiazepines Screen Pos (NEG) Urine Cocaine Screen Neg (NEG) Urine Cannabinoids Screen Neg (NEG) Urine Ethyl Alcohol Neg (NEG) White Blood Count 12.7 x10^3/uL (4.0-11.0) H Red Blood Count 5.42 x10^6/uL (3.50-5.40) H Hemoglobin 17.0 g/dL (12.0-15.5) H Hematocrit 48.6 % (36.0-47.0) H Mean Corpuscular Volume 90 fL (79-100) Mean Corpuscular Hemoglobin 31 pg (25-35) Mean Corpuscular Hemoglobin Concent 35 g/dL (31-37) Red Cell Distribution Width 13.6 % (11.5-14.5) Platelet Count 354 x10^3/uL (140-400) Neutrophils (%) (Auto) 60 % (31-73) Lymphocytes (%) (Auto) 32 % (24-48) Monocytes (%) (Auto) 6 % (0-9) Eosinophils (%) (Auto) 1 % (0-3) Basophils (%) (Auto) 1 % (0-3) Neutrophils # (Auto) 7.6 x10^3/uL (1.8-7.7) Lymphocytes # (Auto) 4.1 x10^3/uL (1.0-4.8) Monocytes # (Auto) 0.7 x10^3/uL (0.0-1.1) Eosinophils # (Auto) 0.2 x10^3/uL (0.0-0.7) Basophils # (Auto) 0.2 x10^3/uL (0.0-0.2) Sodium Level 140 mmol/L (136-145) Potassium Level 4.2 mmol/L (3.5-5.1) Chloride Level 101 mmol/L (98-107) Carbon Dioxide Level 27 mmol/L (21-32) Anion Gap 12 (6-14) Blood Urea Nitrogen 13 mg/dL (7-20) Creatinine 0.7 mg/dL (0.6-1.0) Estimated GFR (Cockcroft-Gault) 86.6 BUN/Creatinine Ratio 19 (6-20) Glucose Level 114 mg/dL (70-99) H Calcium Level 9.8 mg/dL (8.5-10.1) Magnesium Level 2.1 mg/dL (1.8-2.4) Total Bilirubin 0.4 mg/dL (0.2-1.0) Aspartate Amino Transferase (AST) 43 U/L (15-37) H Alanine Aminotransferase (ALT) 61 U/L (14-59) H Alkaline Phosphatase 142 U/L (46-116) H Troponin I High Sensitivity 7 ng/L (4-50) UH-Ijt-Y-Type Natriuretic Peptide 8 pg/mL (0-124) Total Protein 9.0 g/dL (6.4-8.2) H Albumin 3.9 g/dL (3.4-5.0) Albumin/Globulin Ratio 0.8 (1.0-1.7) L Thyroid Stimulating Hormone (TSH) 0.014 uIU/mL (0.358-3.74) L Laboratory Tests 07/06/21 17:59 Laboratory Tests 07/06/21 17:59 Vital Signs: Vital Signs Date Time Temp Pulse Resp B/P (MAP) Pulse Ox O2 Delivery O2 Flow Rate FiO2 07/06/21 18:51 98 22 135/70 (91) 98 Nasal Cannula 2.0 07/06/21 17:45 98.2 98.2 EKG: EK interpreted by Dr. Barrios sinus tachycardia heart rate 103 [] Radiology/Procedures: Radiology/Procedures: []PROCEDURE: PORTABLE CHEST 1V XR CHEST 1V INDICATION: chest pain . COMPARISON STUDY: None. FINDINGS: Lungs: Normal lung volume. No pulmonary mass or consolidation. The tracheobronchial tree and hilar structures are normal. Pleura: No pleural effusion or pneumothorax. Heart and Mediastinum: The cardiomediastinal silhouette is normal. The great vessels of the thorax are normal. Bones and Soft Tissues: The bones and soft tissues are within normal limits. IMPRESSION: No acute cardiopulmonary process. Electronically signed by: Julia Vera MD (07/06/2021 6:43 PM) [facility] DICTATED and SIGNED BY: JULIA VERA MD DATE: 07/06/211842 Course & Med Decision Making: Course & Med Decision Making Pertinent Labs and Imaging studies reviewed. (See chart for details) This a 56-year-old female patient presented to the ED today complaining of left- sided chest pain, headache and left-sided jaw pain, symptoms have been going on intermittently for 1 week. Patient also states her blood pressure has been up and down for the last 1 week Vitals on arrival to the ED temperature 98.2, heart rate 100, O2 sats 100% on 2 L of oxygen, respiration 22, blood pressure 177/100 EKG, initial troponin, negative for any acute findings, CBC with a WBC of 12.6, BMP with no acute findings, liver enzymes AST 43, ALT 61, ALK 142. Patient denies any abdominal pain. Chest x-ray is negative for any acute findings Spoke with Dr. Ramon who accepted patient for admission Onur Disclaimer: Onur Disclaimer: This electronic medical record was generated, in whole or in part, using a voice recognition dictation system. Departure Departure Impression: Primary Impression: Chest pain Qualified Codes: R07.9 - Chest pain, unspecified Additional Impression: Elevated blood pressure reading Disposition: ADMITTED INPATIENT Condition: STABLE Referrals: JACKI RAMON MD (PCP) DWAIN LOERA APRN Jul 06, 2021 21:11
[2021-07-06] MEDS ORDERED: NITROGLYCERIN SUBLINGUAL 0.4 MG BOTTLE OF 25. SL PRN (21:45)
[2021-07-06] MEDS ORDERED: ACETAMINOPHEN 325 MG TABLET. PO PRN (21:45)
[2021-07-06] MEDS ORDERED: ONDANSETRON PF 4 MG/2 ML VIAL. IVP PRN (21:45)
[2021-07-07] VITALS (7 sets, daily range): BP systolic 100–168; BP diastolic 59–90
[2021-07-07] MEDS: MORPHINE SULFATE 4 MG/ML INJ. IVP PRN ×2 (00:33→18:26)
[2021-07-07 05:23] LABS: ALBUMIN 3.3 g/dL (3.4-5.0); ALBUMIN/GLOBULIN RATIO 0.7 (1.0-1.7); CALCIUM 9.1 mg/dL (8.5-10.1); CREATININE 0.7 mg/dL (0.6-1.0); GFR 86.6; TOTAL BILIRUBIN 0.6 mg/dL (0.2-1.0); TOTAL PROTEIN 7.8 g/dL (6.4-8.2)
[2021-07-07 06:37] LABS: BASO # 0.1 x10^3/uL (0.0-0.2); BASO % 1 % (0-3); EOS # 0.1 x10^3/uL (0.0-0.7); EOS % 1 % (0-3); HEMATOCRIT 47.6 % (36.0-47.0); HEMOGLOBIN 15.4 g/dL (12.0-15.5); LYMPH # 3.4 x10^3/uL (1.0-4.8); LYMPH % 36 % (24-48); MEAN CORPUSCULAR HEMOGLOBIN 30 pg (25-35); MEAN CORPUSCULAR HGB CONC 32 g/dL (31-37); MEAN CORPUSCULAR VOLUME 92 fL (79-100); MONO # 0.6 x10^3/uL (0.0-1.1); MONO % 6 % (0-9); NEUT # 5.2 x10^3/uL (1.8-7.7); NEUT % 56 % (31-73); PLATELET COUNT 295 x10^3/uL (140-400); RED BLOOD COUNT 5.18 x10^6/uL (3.50-5.40); RED CELL DISTRIBUTION WIDTH 13.4 % (11.5-14.5); WHITE BLOOD COUNT 9.4 x10^3/uL (4.0-11.0)
--- NOTE | 2021-07-07 08:03 | EKG ---
[facility] [address] [place] [address] Test Date: 2021-07-06 Test Time: 17:51:09 Pat Name: YUDELKA CHOI Department: Room: 204 1 Gender: F Coding Validator: : 1965 Requested By: DWAIN LOERA Order Number: [id number] Reading MD: Glynn Alvarez MD Measurements Intervals [place] Rate: 103 P: 63 TX: 132 QRS: 35 QRSD: 78 T: 56 QT: 370 QTc: 487 Interpretive Statements SINUS TACHYCARDIA Electronically Signed On 07-07-2021 9:38:59 CDT by Glynn Alvarez MD
[2021-07-07] MEDS ORDERED: ACETAMINOPHEN 500 MG TABLET PO PRN (09:00)
[2021-07-07] MEDS ORDERED: traMADol 50 MG TABLET PO PRN (09:00)
[2021-07-07] MEDS ORDERED: SALMETEROL IH SCH (09:00)
[2021-07-07] MEDS ORDERED: FLUTICASONE PROPION IH SCH (09:00)
[2021-07-07] MEDS: CYCLOBENZAPRINE 10 MG TABLET. PO SCH ×3 (09:27→21:17)
[2021-07-07] MEDS: NICOTINE 21MG PATCH. TD SCH (09:27)
[2021-07-07] MEDS: SENNOSIDES/DOCUSATE 8.6/50MG TABLET. PO SCH ×2 (09:28→21:16)
[2021-07-07] MEDS: GABAPENTIN 400 MG CAPSULE. PO SCH ×3 (09:28→21:17)
[2021-07-07] MEDS: FAMOTIDINE 20 MG TABLET. PO SCH ×2 (09:28→21:16)
[2021-07-07] MEDS: CITALOPRAM 20 MG TABLET. PO SCH (09:28)
[2021-07-07] MEDS: MELOXICAM 7.5 MG TABLET PO SCH (09:28)
[2021-07-07] MEDS: BUDESONIDE 0.5 MG/2 ML NEBU. NEB SCH ×2 (09:51→20:15)
[2021-07-07] MEDS: IPRATRPIUM/ALBUTEROL 0.5/2.5MG 3 ML NEBU. NEB SCH ×3 (09:51→20:15)
--- NOTE | 2021-07-07 10:56 | PDOC2 ---
NATHALIA RUANO CRIME SCENE TECHNICIAN 07/07/21 1056: CARDIAC CONSULT DATE OF CONSULT Date of Consult DATE: 07/07/21 TIME: 10:43 REASON FOR CONSULT Reason for Consult: Chest pain REFERRING PHYSICIAN Referring Physician: Erika SOURCE Source: Chart review, Patient HISTORY OF PRESENT ILLNESS HISTORY OF PRESENT ILLNESS This is a pleasant 56 yo female admitted for complains of chest pain. Reports central dull achy feeling and reports BP was at the 170/100s at home. No palpitations nausea or vomiting. Has SOA but no different from her baseline as she has COPD and Alpha 1 antitrypsin deficiency and continues to smoke and uses PRN O@ with activity. No prior hx of CAD, VTE or arrhythmias. She does has some left neck discomfort. No DM2. Denies any dizziness or any fever or chills or any recent injury or falls. PAST MEDICAL HISTORY Cardiovascular: HTN Pulmonary: COPD, Other (alpha 1 antitrypsin def) CENTRAL NERVOUS SYSTEM: Periperal neuropathy GI: Constipation, GERD Heme/Onc: Cancer (renal) Hepatobiliary: No pertinent hx Psych: Anxiety Musculoskeletal: Osteoarthritis Rheumatologic: No pertinent hx Infectious disease: No pertinent hx ENT: No pertinent hx Renal/: Other (renal CA) Endocrine: No pertinent hx Dermatology: No pertinent hx PAST SURGICAL HISTORY Past Surgical History: Cholecystectomy, Hernia Repair, Other (partial left nephrectomy) FAMILY HISTORY Family History: Coronary Artery Disease (father in his 30s and mother) SOCIAL HISTORY Smoke: <1 pack per day ALCOHOL: none Drugs: None Lives: with Family CURRENT MEDICATIONS CURRENT MEDICATIONS Current Medications Medications (Trade) Dose Ordered Sig/Nathen Route PRN Reason Start Time Stop Time Status Last Admin Dose Admin Aspirin (Stephen Aspirin) 325 mg 1X ONCE PO 07/06/21 18:00 07/06/21 18:01 DC 07/06/21 18:24 Nitroglycerin (Nitrostat) 0.4 mg PRN Q5MIN PRN SL CP RATING > 1/10 07/06/21 18:00 07/07/21 17:59 07/06/21 18:41 Morphine Sulfate (Morphine Sulfate) 4 mg PRN Q15MIN PRN IV/SQ PAIN GREATER THAN 3/10 07/06/21 18:00 07/06/21 23:59 DC 07/06/21 18:24 Ondansetron HCl (Zofran) 4 mg PRN Q8HRS PRN IVP NAUSEA/VOMITING 1ST CHOICE 07/06/21 21:45 07/07/21 21:44 07/07/21 00:33 Morphine Sulfate (Morphine Sulfate) 4 mg PRN Q2HR PRN IVP SEVERE PAIN 7-10 07/06/21 21:45 07/07/21 21:44 07/07/21 00:33 Acetaminophen (Tylenol) 650 mg PRN Q4HRS PRN PO FEVER > 100.3'F 07/06/21 21:45 07/07/21 21:44 07/07/21 08:04 Cyclobenzaprine HCl (Flexeril) 10 mg TID PO 07/07/21 09:00 07/07/21 09:27 Famotidine (Pepcid) 20 mg BID PO 07/07/21 09:00 07/07/21 09:28 Albuterol/ Ipratropium (Duoneb) 3 ml QID NEB 07/07/21 09:00 07/07/21 09:51 Nicotine (Nicoderm Cq 21mg) 1 patch DAILY TD 07/07/21 09:00 07/07/21 09:27 Senna/Docusate Sodium (Senna Plus) 1 tab BID PO 07/07/21 09:00 07/07/21 09:28 Citalopram Hydrobromide (CeleXA) 40 mg DAILY PO 07/07/21 09:15 07/07/21 09:28 Gabapentin (Neurontin) 800 mg TID PO 07/07/21 09:15 07/07/21 09:28 Lorazepam (Ativan) 2 mg TID PO 07/07/21 09:15 07/07/21 09:28 Meloxicam (Mobic) 15 mg DAILY PO 07/07/21 09:15 07/07/21 09:28 Budesonide (Pulmicort) 0.5 mg RTBID NEB 07/07/21 09:30 07/07/21 09:51 ALLERGIES ALLERGIES: Coded Allergies: pregabalin (Verified Adverse Reaction, Intermediate, 02/06/19) DIZZINESS clonazepam (Verified Adverse Reaction, Mild, Nausea and Vomiting, 02/06/19) ROS Review of System 14 point ROS evaluated with pertinent positives noted per HPI PHYSICAL EXAM General: Alert, Oriented X3, Cooperative, No acute distress HEENT: Atraumatic, Mucous membr. moist/pink Lungs: Other (diminished) Heart: Regular rate (SR), Normal S1, Normal S2, No murmurs Abdomen: Soft, No tenderness, Other (protuberant) Extremities: No cyanosis, No edema Skin: No breakdown, No significant lesion Neuro: Normal speech, Sensation intact Psych/Mental Status: Mental status NL, Other (anxious) MUSCULOSKELETAL: Osteoarthritic changes both hands VITALS/I&O VITALS/I&O: Vital Signs Date Time Temp Pulse Resp B/P (MAP) Pulse Ox O2 Delivery O2 Flow Rate FiO2 07/07/21 09:52 93 Nasal Cannula 3.0 07/07/21 07:00 98.2 91 20 151/85 (107) 98.2 I & O 07/06/21 07/06/21 07/07/21 15:00 23:00 07:00 Intake Total 0 ml Balance 0 ml LABS Lab: Laboratory Tests Test 07/06/21 17:40 07/06/21 17:59 07/06/21 21:30 07/06/21 23:50 Urine Collection Type Void Urine Color (Auto) Colorless Urine Turbidity Clear Urine pH (Auto) 5.0 (<5.0-8.0) Urine Specific [place] 1.005 (1.000-1.030) Urine Protein (Auto) Negative mg/dL (Negative) Urine Glucose (Auto)(UA) Negative mg/dL (Negative) Urine Ketones (Auto) Negative mg/dL (Negative) Urine Blood (Auto) Small (Negative) Urine Nitrite Negative (Negative) Urine Bilirubin (Auto) Negative (Negative) Urine Urobilinogen (Auto) Normal mg/dL (Normal) Urine Leukocyte Esterase (Auto) Negative (Negative) Urine RBC 1-2 /HPF (0-2) Urine WBC 0 /HPF (0-4) Urine Squamous Epithelial Cells Few /LPF Urine Bacteria Few /HPF (0-FEW) Urine Opiates Screen Neg (NEG) Urine Methadone Screen Neg (NEG) Urine Barbiturates Neg (NEG) Urine Phencyclidine Screen Neg (NEG) Urine Amphetamine/Methamphetamine Neg (NEG) Urine Benzodiazepines Screen Pos (NEG) Urine Cocaine Screen Neg (NEG) Urine Cannabinoids Screen Neg (NEG) Urine Ethyl Alcohol Neg (NEG) White Blood Count 12.7 x10^3/uL (4.0-11.0) H Red Blood Count 5.42 x10^6/uL (3.50-5.40) H Hemoglobin 17.0 g/dL (12.0-15.5) H Hematocrit 48.6 % (36.0-47.0) H Mean Corpuscular Volume 90 fL (79-100) Mean Corpuscular Hemoglobin 31 pg (25-35) Mean Corpuscular Hemoglobin Concent 35 g/dL (31-37) Red Cell Distribution Width 13.6 % (11.5-14.5) Platelet Count 354 x10^3/uL (140-400) Neutrophils (%) (Auto) 60 % (31-73) Lymphocytes (%) (Auto) 32 % (24-48) Monocytes (%) (Auto) 6 % (0-9) Eosinophils (%) (Auto) 1 % (0-3) Basophils (%) (Auto) 1 % (0-3) Neutrophils # (Auto) 7.6 x10^3/uL (1.8-7.7) Lymphocytes # (Auto) 4.1 x10^3/uL (1.0-4.8) Monocytes # (Auto) 0.7 x10^3/uL (0.0-1.1) Eosinophils # (Auto) 0.2 x10^3/uL (0.0-0.7) Basophils # (Auto) 0.2 x10^3/uL (0.0-0.2) Sodium Level 140 mmol/L (136-145) Potassium Level 4.2 mmol/L (3.5-5.1) Chloride Level 101 mmol/L (98-107) Carbon Dioxide Level 27 mmol/L (21-32) Anion Gap 12 (6-14) Blood Urea Nitrogen 13 mg/dL (7-20) Creatinine 0.7 mg/dL (0.6-1.0) Estimated GFR (Cockcroft-Gault) 86.6 BUN/Creatinine Ratio 19 (6-20) Glucose Level 114 mg/dL (70-99) H Calcium Level 9.8 mg/dL (8.5-10.1) Magnesium Level 2.1 mg/dL (1.8-2.4) Total Bilirubin 0.4 mg/dL (0.2-1.0) Aspartate Amino Transferase (AST) 43 U/L (15-37) H Alanine Aminotransferase (ALT) 61 U/L (14-59) H Alkaline Phosphatase 142 U/L (46-116) H Troponin I High Sensitivity 7 ng/L (4-50) 6 ng/L (4-50) 5 ng/L (4-50) NB-Qfg-H-Type Natriuretic Peptide 8 pg/mL (0-124) Total Protein 9.0 g/dL (6.4-8.2) H Albumin 3.9 g/dL (3.4-5.0) Albumin/Globulin Ratio 0.8 (1.0-1.7) L Thyroid Stimulating Hormone (TSH) 0.014 uIU/mL (0.358-3.74) L Test 07/07/21 03:20 White Blood Count 9.4 x10^3/uL (4.0-11.0) Red Blood Count 5.18 x10^6/uL (3.50-5.40) Hemoglobin 15.4 g/dL (12.0-15.5) Hematocrit 47.6 % (36.0-47.0) H Mean Corpuscular Volume 92 fL (79-100) Mean Corpuscular Hemoglobin 30 pg (25-35) Mean Corpuscular Hemoglobin Concent 32 g/dL (31-37) Red Cell Distribution Width 13.4 % (11.5-14.5) Platelet Count 295 x10^3/uL (140-400) Neutrophils (%) (Auto) 56 % (31-73) Lymphocytes (%) (Auto) 36 % (24-48) Monocytes (%) (Auto) 6 % (0-9) Eosinophils (%) (Auto) 1 % (0-3) Basophils (%) (Auto) 1 % (0-3) Neutrophils # (Auto) 5.2 x10^3/uL (1.8-7.7) Lymphocytes # (Auto) 3.4 x10^3/uL (1.0-4.8) Monocytes # (Auto) 0.6 x10^3/uL (0.0-1.1) Eosinophils # (Auto) 0.1 x10^3/uL (0.0-0.7) Basophils # (Auto) 0.1 x10^3/uL (0.0-0.2) Sodium Level 140 mmol/L (136-145) Potassium Level 4.0 mmol/L (3.5-5.1) Chloride Level 102 mmol/L (98-107) Carbon Dioxide Level 29 mmol/L (21-32) Anion Gap 9 (6-14) Blood Urea Nitrogen 14 mg/dL (7-20) Creatinine 0.7 mg/dL (0.6-1.0) Estimated GFR (Cockcroft-Gault) 86.6 BUN/Creatinine Ratio 20 (6-20) Glucose Level 112 mg/dL (70-99) H Calcium Level 9.1 mg/dL (8.5-10.1) Total Bilirubin 0.6 mg/dL (0.2-1.0) Aspartate Amino Transferase (AST) 208 U/L (15-37) H Alanine Aminotransferase (ALT) 168 U/L (14-59) H Alkaline Phosphatase 212 U/L (46-116) H Total Protein 7.8 g/dL (6.4-8.2) Albumin 3.3 g/dL (3.4-5.0) L Albumin/Globulin Ratio 0.7 (1.0-1.7) L Free Triiodothyronine (T3) pg/mL 3.05 pg/mL (2.18-3.98) Laboratory Tests 07/06/21 17:59 07/07/21 03:20 Laboratory Tests 07/06/21 17:59 07/07/21 03:20 ASSESSMENT/PLAN ASSESSMENT/PLAN 1. Chest pain: none further, trops nml, no acute EKG changes 2. HTN: labile episodes 3. Transaminitis: possible hepatic steatosis vs r/t alpha 1antitrypsin def 4. Hx of alpha 1 antitrypsin def 5. Chronic respiratory failure with COPD: use intermittent O2 at home and at hs 6. Obesity Recommendations 1. ASA. Start on norvasc 2. TTE, FLP 3. Outpt stress test 4. Follow up with Dr. Guillen on August 19 1:45 PM LAZARUS GUILLEN MD 07/08/21 0801: CARDIAC CONSULT ASSESSMENT/PLAN ASSESSMENT/PLAN Late entry for 07/07/2021 Patient seen and examined. Agree with above nurse practitioner note. Echocardiogram is unremarkable. Supportive care per NATHALIA RUNAO CRIME SCENE TECHNICIAN Jul 07, 2021 10:56 LAZARUS GUILLEN MD Jul 08, 2021 08:01
[2021-07-07 11:33] LABS: CHOLESTEROL 354 mg/dL (0-200); HDLC 33 mg/dL (40-60); TRIGLYCERIDES 563 mg/dL (0-150); VLDLC 113 mg/dL (0-40)
[2021-07-07] MEDS: ASPIRIN ENTERIC COATED 81 MG TABLET.DR. PO SCH (11:33)
[2021-07-07 11:36] LABS: CHOLESTEROL/HDL RATIO 10.7
--- NOTE | 2021-07-07 12:55 | HP ---
DATE OF SERVICE: 07/07/2021 ADMIT DATE: 07/06/2021 CHIEF COMPLAINT: Chest and back pain. HISTORY OF PRESENT ILLNESS: The patient was admitted with high risk factors for coronary artery disease with no prior history of same, exertional chest pain radiating to the neck. Followed at she has alpha-1 antitrypsin deficiency, COPD, fibromyalgia uses multiple meds. SOCIAL HISTORY: Heavy smoker, still smoking. Disabled. , nondrinker. FAMILY HISTORY: Unremarkable. REVIEW OF SYSTEMS: No complaints. OBJECTIVE: Unremarkable except for consistent with high hemoglobin. Neck: Normal. Lungs: Clear. Cardiovascular: Regular rate. No murmur. ASSESSMENT: Nonspecific chest pain with coronary disease. Stable chronic obstructive pulmonary disease, tobacco abuse fibromyalgia. PLAN: As ordered. KAY/YOKASTA DR: Didi TID: [id number]
[2021-07-07] MEDS: ALBUTEROL SULFATE 2.5 MG/3 ML NEBU. NEB SCH ×2 (16:15→18:00)
--- NOTE | 2021-07-07 16:29 | PDOC2 ---
GI CONSULT Date of Service: DATE: 07/07/21 TIME: 16:10 Reason For Consult: transaminitis, h/o alpha 1 antitrypsin def HPI: HPI: 56 y/o admitted w/ chest pain radiating to left neck/jaw and HTN. Cardiology is planning outpt stress test. Noted w/ elevated cholesterol and triglycerides. Additionally elevated LFTs w/ h/o hepatic steatosis and zcsrm-1-wgphijtndji deficiency. Saw hepatology @ but her doctor moved and hasn't established care with a new branch rental manager yet. 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 AST, ALT, and Alk Phos elevated - worse than yesterday - fluctuating on review of past labs. No GI complaints currently. H/o GERD, constipation, and bloating - all improved/stable w/ famotidine BID (preferred to PPI), Miralax, and stool softeners. Previous EGD at reportedly showed gastritis and possible small ulcers - was treated for H. pylori. Reports GES at was normal. Says colonoscopy at this year was also normal. S/p cholecystectomy for biliary dyskinesia - path w/ chronic cholecystitis, no stones - IOC normal. SBS in 2019 unremarkable. No pancreas history. Hepatitis panel, ALDEN, AMA, RF negative/normal in 2019. PMH: PMH: HTN, COPD, alpha 1 antitrypsin deficiency, peripheral neuropathy, RCC, anxiety, OA, Aspergers, uterine fibroids, COVID cholecystectomy, umbilical hernia repair, partial left nephrectomy, oral surgery FH: Family History: Cancer (colon), CAD, DM, Hypertension, Other (scleroderma) Social History: Smoke: <1 pack per day ALCOHOL: none Drugs: None ROS: GEN: Denies fevers, chills, sweats HEENT: Denies blurred vision, sore throat CV: Denies chest pain RESP: Denies shortness of air, cough GI: Per HPI : Denies hematuria, dysuria ENDO: Denies weight changes NEURO: Denies confusion, dizziness MSK: Denies weakness, joint pain/swelling SKIN: Denies jaundice, pruritus Vitals: Vitals: Vital Signs Date Time Temp Pulse Resp B/P (MAP) Pulse Ox O2 Delivery O2 Flow Rate FiO2 07/07/21 15:00 98.1 98 20 100/59 (73) 92 Room Air 98.1 07/07/21 09:52 3.0 Labs: Labs: Laboratory Tests Test 07/06/21 17:40 07/06/21 17:59 07/06/21 21:30 07/06/21 23:50 Urine Collection Type Void Urine Color (Auto) Colorless Urine Turbidity Clear Urine pH (Auto) 5.0 (<5.0-8.0) Urine Specific [place] 1.005 (1.000-1.030) Urine Protein (Auto) Negative mg/dL (Negative) Urine Glucose (Auto)(UA) Negative mg/dL (Negative) Urine Ketones (Auto) Negative mg/dL (Negative) Urine Blood (Auto) Small (Negative) Urine Nitrite Negative (Negative) Urine Bilirubin (Auto) Negative (Negative) Urine Urobilinogen (Auto) Normal mg/dL (Normal) Urine Leukocyte Esterase (Auto) Negative (Negative) Urine RBC 1-2 /HPF (0-2) Urine WBC 0 /HPF (0-4) Urine Squamous Epithelial Cells Few /LPF Urine Bacteria Few /HPF (0-FEW) Urine Opiates Screen Neg (NEG) Urine Methadone Screen Neg (NEG) Urine Barbiturates Neg (NEG) Urine Phencyclidine Screen Neg (NEG) Urine Amphetamine/Methamphetamine Neg (NEG) Urine Benzodiazepines Screen Pos (NEG) Urine Cocaine Screen Neg (NEG) Urine Cannabinoids Screen Neg (NEG) Urine Ethyl Alcohol Neg (NEG) White Blood Count 12.7 x10^3/uL (4.0-11.0) Red Blood Count 5.42 x10^6/uL (3.50-5.40) Hemoglobin 17.0 g/dL (12.0-15.5) Hematocrit 48.6 % (36.0-47.0) Mean Corpuscular Volume 90 fL (79-100) Mean Corpuscular Hemoglobin 31 pg (25-35) Mean Corpuscular Hemoglobin Concent 35 g/dL (31-37) Red Cell Distribution Width 13.6 % (11.5-14.5) Platelet Count 354 x10^3/uL (140-400) Neutrophils (%) (Auto) 60 % (31-73) Lymphocytes (%) (Auto) 32 % (24-48) Monocytes (%) (Auto) 6 % (0-9) Eosinophils (%) (Auto) 1 % (0-3) Basophils (%) (Auto) 1 % (0-3) Neutrophils # (Auto) 7.6 x10^3/uL (1.8-7.7) Lymphocytes # (Auto) 4.1 x10^3/uL (1.0-4.8) Monocytes # (Auto) 0.7 x10^3/uL (0.0-1.1) Eosinophils # (Auto) 0.2 x10^3/uL (0.0-0.7) Basophils # (Auto) 0.2 x10^3/uL (0.0-0.2) Sodium Level 140 mmol/L (136-145) Potassium Level 4.2 mmol/L (3.5-5.1) Chloride Level 101 mmol/L (98-107) Carbon Dioxide Level 27 mmol/L (21-32) Anion Gap 12 (6-14) Blood Urea Nitrogen 13 mg/dL (7-20) Creatinine 0.7 mg/dL (0.6-1.0) Estimated GFR (Cockcroft-Gault) 86.6 BUN/Creatinine Ratio 19 (6-20) Glucose Level 114 mg/dL (70-99) Calcium Level 9.8 mg/dL (8.5-10.1) Magnesium Level 2.1 mg/dL (1.8-2.4) Total Bilirubin 0.4 mg/dL (0.2-1.0) Aspartate Amino Transf (AST/SGOT) 43 U/L (15-37) Alanine Aminotransferase (ALT/SGPT) 61 U/L (14-59) Alkaline Phosphatase 142 U/L (46-116) Troponin I High Sensitivity 7 ng/L (4-50) 6 ng/L (4-50) 5 ng/L (4-50) YX-Rym-B-Type Natriuretic Peptide 8 pg/mL (0-124) Total Protein 9.0 g/dL (6.4-8.2) Albumin 3.9 g/dL (3.4-5.0) Albumin/Globulin Ratio 0.8 (1.0-1.7) Thyroid Stimulating Hormone (TSH) 0.014 uIU/mL (0.358-3.74) Test 07/07/21 03:20 07/07/21 09:43 White Blood Count 9.4 x10^3/uL (4.0-11.0) Red Blood Count 5.18 x10^6/uL (3.50-5.40) Hemoglobin 15.4 g/dL (12.0-15.5) Hematocrit 47.6 % (36.0-47.0) Mean Corpuscular Volume 92 fL (79-100) Mean Corpuscular Hemoglobin 30 pg (25-35) Mean Corpuscular Hemoglobin Concent 32 g/dL (31-37) Red Cell Distribution Width 13.4 % (11.5-14.5) Platelet Count 295 x10^3/uL (140-400) Neutrophils (%) (Auto) 56 % (31-73) Lymphocytes (%) (Auto) 36 % (24-48) Monocytes (%) (Auto) 6 % (0-9) Eosinophils (%) (Auto) 1 % (0-3) Basophils (%) (Auto) 1 % (0-3) Neutrophils # (Auto) 5.2 x10^3/uL (1.8-7.7) Lymphocytes # (Auto) 3.4 x10^3/uL (1.0-4.8) Monocytes # (Auto) 0.6 x10^3/uL (0.0-1.1) Eosinophils # (Auto) 0.1 x10^3/uL (0.0-0.7) Basophils # (Auto) 0.1 x10^3/uL (0.0-0.2) Sodium Level 140 mmol/L (136-145) Potassium Level 4.0 mmol/L (3.5-5.1) Chloride Level 102 mmol/L (98-107) Carbon Dioxide Level 29 mmol/L (21-32) Anion Gap 9 (6-14) Blood Urea Nitrogen 14 mg/dL (7-20) Creatinine 0.7 mg/dL (0.6-1.0) Estimated GFR (Cockcroft-Gault) 86.6 BUN/Creatinine Ratio 20 (6-20) Glucose Level 112 mg/dL (70-99) Calcium Level 9.1 mg/dL (8.5-10.1) Total Bilirubin 0.6 mg/dL (0.2-1.0) Aspartate Amino Transf (AST/SGOT) 208 U/L (15-37) Alanine Aminotransferase (ALT/SGPT) 168 U/L (14-59) Alkaline Phosphatase 212 U/L (46-116) Total Protein 7.8 g/dL (6.4-8.2) Albumin 3.3 g/dL (3.4-5.0) Albumin/Globulin Ratio 0.7 (1.0-1.7) Triglycerides Level 563 mg/dL (0-150) Cholesterol Level 354 mg/dL (0-200) LDL Cholesterol, Calculated mg/dL (0-100) VLDL Cholesterol, Calculated 113 mg/dL (0-40) Non-HDL Cholesterol Calculated 321 mg/dL (0-129) HDL Cholesterol 33 mg/dL (40-60) Cholesterol/HDL Ratio 10.7 Free Triiodothyronine (T3) pg/mL 3.05 pg/mL (2.18-3.98) Erythrocyte Sedimentation Rate 54 (0-25) Allergies: Coded Allergies: pregabalin (Verified Adverse Reaction, Intermediate, 02/06/19) DIZZINESS clonazepam (Verified Adverse Reaction, Mild, Nausea and Vomiting, 02/06/19) Medications: Current Medications Medications (Trade) Dose Ordered Sig/Nathen Route PRN Reason Start Time Stop Time Status Last Admin Dose Admin Aspirin (Stephen Aspirin) 325 mg 1X ONCE PO 07/06/21 18:00 07/06/21 18:01 DC 07/06/21 18:24 Nitroglycerin (Nitrostat) 0.4 mg PRN Q5MIN PRN SL CP RATING > 1/10 07/06/21 18:00 07/07/21 17:59 07/06/21 18:41 Morphine Sulfate (Morphine Sulfate) 4 mg PRN Q15MIN PRN IV/SQ PAIN GREATER THAN 3/10 07/06/21 18:00 07/06/21 23:59 DC 07/06/21 18:24 Ondansetron HCl (Zofran) 4 mg PRN Q8HRS PRN IVP NAUSEA/VOMITING 1ST CHOICE 07/06/21 21:45 07/07/21 21:44 07/07/21 00:33 Morphine Sulfate (Morphine Sulfate) 4 mg PRN Q2HR PRN IVP SEVERE PAIN 7-10 07/06/21 21:45 07/07/21 21:44 07/07/21 00:33 Acetaminophen (Tylenol) 650 mg PRN Q4HRS PRN PO FEVER > 100.3'F 07/06/21 21:45 07/07/21 21:44 07/07/21 08:04 Cyclobenzaprine HCl (Flexeril) 10 mg TID PO 07/07/21 09:00 07/07/21 15:41 Famotidine (Pepcid) 20 mg BID PO 07/07/21 09:00 07/07/21 09:28 Albuterol/ Ipratropium (Duoneb) 3 ml QID NEB 07/07/21 09:00 07/07/21 09:51 Nicotine (Nicoderm Cq 21mg) 1 patch DAILY TD 07/07/21 09:00 07/07/21 09:27 Senna/Docusate Sodium (Senna Plus) 1 tab BID PO 07/07/21 09:00 07/07/21 09:28 Citalopram Hydrobromide (CeleXA) 40 mg DAILY PO 07/07/21 09:15 07/07/21 09:28 Gabapentin (Neurontin) 800 mg TID PO 07/07/21 09:15 07/07/21 15:41 Lorazepam (Ativan) 2 mg TID PO 07/07/21 09:15 07/07/21 15:41 Meloxicam (Mobic) 15 mg DAILY PO 07/07/21 09:15 07/07/21 09:28 Budesonide (Pulmicort) 0.5 mg RTBID NEB 07/07/21 09:30 07/07/21 09:51 Amlodipine Besylate (Norvasc) 5 mg 1X ONCE PO 07/07/21 11:30 07/07/21 11:31 DC 07/07/21 11:33 Aspirin (Ecotrin) 81 mg DAILYWBKFT PO 07/07/21 12:00 07/07/21 11:33 Imaging: Imaging: CXR 07/06 IMPRESSION: No acute cardiopulmonary process. PE: GEN: NAD HEENT: Atraumatic, PERRL LUNGS: CTAB HEART: RRR ABD: NABS, S/ND/NT EXTREMITY: No edema SKIN: No rashes, no jaundice NEURO/PSYCH: A & O 3 A/P: A/P: Chest pain, HTN, hyperlipidemia/triglyceridemia Elevated LFTs (worse than yesterday), hepatic steatosis, rpvds-1-vnvojgzzehx deficiency H/o GERD and constipation - stable/controlled ?h/o PUD, H. pylori - says treated CRC screen - UTD (this year) S/p cholecystectomy -- Difficult situation w/ liver history as above - will review w/ Dr. Solis - consider non-statin?, monitor labs, follow-up w/ KATHR[facility]. BREEZY ROMAN Jul 07, 2021 16:29
[2021-07-07] MEDS ORDERED: POLYETHYLENE GLYCOL 3350 17 GM PACKET. PO PRN (16:30)
[2021-07-08] VITALS (7 sets, daily range): BP systolic 91–134; BP diastolic 59–79
[2021-07-08] MEDS: ALBUTEROL SULFATE 2.5 MG/3 ML NEBU. NEB SCH ×4 (06:00→15:16)
[2021-07-08] MEDS: IPRATRPIUM/ALBUTEROL 0.5/2.5MG 3 ML NEBU. NEB SCH ×4 (07:17→17:53)
[2021-07-08] MEDS: BUDESONIDE 0.5 MG/2 ML NEBU. NEB SCH ×2 (07:18→17:53)
--- NOTE | 2021-07-08 08:29 | CARD ---
MR#: [id number] Date of Study: 07/07/2021 Ordering Physician: NATHALIA RUANO, Referring Physician: Axel AMOS: Kobe León [facility] APPROVED REPORT EXAM: Two-dimensional and M-mode echocardiogram with Doppler and color Doppler. Other Information Quality : AverageHR: 86bpm Rhythm : NSR INDICATION Chest Pain RISK FACTORS Hypertension Obesity Hyperlipidemia Smoking Chronic kidney disease. 2D DIMENSIONS Left Atrium(2D)3.3 (1.6-4.0cm)IVSd1.3 (0.7-1.1cm) Aortic Root(2D)3.1 (2.0-3.7cm)LVDd4.4 (3.9-5.9cm) LVOT Diameter1.9 (1.8-2.4cm)PWd1.3 (0.7-1.1cm) LVDs2.6 (2.5-4.0cm)FS (%) 39.2 % SV59.8 mlLVEF(%)70.0 (>50%) Aortic Valve AoV Peak Dmitry.193.1cm/sAoV VTI34.2cm AO Peak GR.14.9mmHgLVOT Peak Dmitry.85.5cm/s AO Mean GR.8mmHgAVA (VMAX)1.27cm2 Mitral Valve MV E Wqtsxfhz65.0cm/sMV E Peak Gr.2mmHg MV DECEL [id number] A Ahgmzwvf94.0cm/s MV E Mean Gr.1mmHgE/A Ratio1.3 Pulmonary Valve PV Peak Goexlnwv10.1cm/s Tricuspid Valve TR P. Dnncykaj872fk/sTR Peak Gr.19mmHg Pulmonary Vein S1 Hvxmsieu42.8cm/sD2 Bfuuigbm33.8cm/s LEFT VENTRICLE The left ventricle is normal size. There is mild concentric left ventricular hypertrophy. The left ve ntricular systolic function is normal. The ejection fraction is 55-60%. There is normal LV segmental wall motion. No left ventricle thrombus noted on this study. There is no ventricular septal defect vi sualized. There is no left ventricular aneurysm. There is no mass noted in the left ventricle. RIGHT VENTRICLE The right ventricle is normal size. There is normal right ventricular wall thickness. The right ventr icular systolic function is normal. ATRIA The left atrium size is normal. The right atrium size is normal. The interatrial septum is intact wit h no evidence for an atrial septal defect or patent foramen ovale as noted on 2-D or Doppler imaging. AORTIC VALVE The aortic valve is calcified but opens well. Doppler and Color Flow revealed no significant aortic r egurgitation. There is no significant aortic valvular stenosis. Calculated aortic valve area is 1.5 c m2 with maximum pressure gradient of 15 mmHg and mean pressure gradient of 8 mmHg. There is no aortic valvular vegetation. MITRAL VALVE The mitral valve is normal in structure and function. There is no evidence of mitral valve prolapse. There is no mitral valve stenosis. Doppler and Color-flow revealed trace mitral regurgitation. TRICUSPID VALVE The tricuspid valve is normal in structure and function. Doppler and Color Flow revealed trace tricus pid regurgitation. There is no tricuspid valve prolapse or vegetation. There is no tricuspid valve st enosis. PULMONIC VALVE The pulmonary valve is normal in structure and function. Doppler and Color Flow revealed no pulmonic valvular regurgitation. There is no pulmonic valvular stenosis. GREAT VESSELS The aortic root is normal in size. The ascending aorta is normal in size. The pulmonary artery is nor mal. The IVC is normal in size and collapses >50% with inspiration. PERICARDIAL EFFUSION There is no pleural effusion. There is no evidence of significant pericardial effusion. Critical Notification Critical Value: No <Conclusion> The left ventricular systolic function is normal. The ejection fraction is 55-60%. There is normal LV segmental wall motion. Trace mitral regurgitation. Trace tricuspid regurgitation. There is no evidence of significant pericardial effusion. Signed by : Ryland Lopez, Electronically Approved : 07/08/2021 08:29:12
--- NOTE | 2021-07-08 09:04 | PDOC ---
Provider Note Date of Service: DATE: 07/08/21 TIME: 09:03 Provider Note still having episodes of chest pain, anxiety- echo ok, esr up but doubt vasculitis- will reduce amlo dose b4 dc decision- she is high risk for CAD but cannot use statin re transaminitis Justifications for Admission Other Justification JACKI RAMON MD Jul 08, 2021 09:04
[2021-07-08] MEDS: NICOTINE 21MG PATCH. TD SCH (09:07)
[2021-07-08] MEDS: POLYETHYLENE GLYCOL 3350 17 GM PACKET. PO SCH (09:08)
[2021-07-08] MEDS: SENNOSIDES/DOCUSATE 8.6/50MG TABLET. PO SCH ×2 (09:14→20:49)
[2021-07-08] MEDS: ASPIRIN ENTERIC COATED 81 MG TABLET.DR. PO SCH (09:14)
[2021-07-08] MEDS: CYCLOBENZAPRINE 10 MG TABLET. PO SCH ×3 (09:14→20:49)
[2021-07-08] MEDS: GABAPENTIN 400 MG CAPSULE. PO SCH ×3 (09:15→20:50)
[2021-07-08] MEDS: CITALOPRAM 20 MG TABLET. PO SCH (09:15)
[2021-07-08] MEDS: FAMOTIDINE 20 MG TABLET. PO SCH ×2 (09:15→20:49)
[2021-07-08] MEDS: MELOXICAM 7.5 MG TABLET PO SCH (09:16)
[2021-07-08 09:37] LABS: ALBUMIN 3.3 g/dL (3.4-5.0); DIRECT BILIRUBIN 0.1 mg/dL (0.0-0.2); TOTAL BILIRUBIN 0.4 mg/dL (0.2-1.0); TOTAL PROTEIN 7.9 g/dL (6.4-8.2)
--- NOTE | 2021-07-08 10:49 | PDOC ---
Date of Service: DATE: 07/08/21 TIME: 10:47 Subjective: Subjective: Feels okay, doesn't like the eggs here for breakfast. Objective: Vital Signs: Vital Signs Date Time Temp Pulse Resp B/P (MAP) Pulse Ox O2 Delivery O2 Flow Rate FiO2 07/08/21 09:15 97 119/78 07/08/21 07:18 98 Nasal Cannula 3.0 07/08/21 07:00 97.6 18 97.6 Labs: Laboratory Tests Test 07/08/21 08:05 Total Bilirubin 0.4 mg/dL Direct Bilirubin 0.1 mg/dL Aspartate Amino Transf (AST/SGOT) 73 U/L Alanine Aminotransferase (ALT/SGPT) 143 U/L Alkaline Phosphatase 197 U/L Total Protein 7.9 g/dL Albumin 3.3 g/dL PE: GEN: NAD- smells like smoke in her room, she says she just had a visitor LUNGS: diminished, NC 3L HEART: RRR ABD: S/ND/NT NEURO/PSYCH: A & O 3 A/P: Chest pain, HTN, hyperlipidemia/triglyceridemia Elevated LFTs (better), hepatic steatosis, lnglq-0-jmxrkbysswr deficiency -- As previously d/w Dr. Solis, consider non-statin treatment for cholesterol. Follow up w/ [facility]. Dc per primary/cardiology. Justicifation of Admission Dx: Justifications for Admission: Justification of Admission Dx: N/A BREEZY ROMAN Jul 08, 2021 10:49
--- NOTE | 2021-07-08 11:11 | PDOC ---
NATHALIA RUANO TRACK HOE OPERATOR 07/08/21 1110: CARDIO Progress Notes Date and Time Date of Service 07/08/2021 Time of Evaluation 1050 Subjective Subjective: No Chest Pain, No shortness of breath, No Palpitations Vitals Vitals Vital Signs Date Time Temp Pulse Resp B/P (MAP) Pulse Ox O2 Delivery O2 Flow Rate FiO2 07/08/21 09:15 97 119/78 07/08/21 07:18 98 Nasal Cannula 3.0 07/08/21 07:00 97.6 18 97.6 Weight Weight [ ] Input and Output Intake and Output Intake and Output 07/08/21 07:00 Intake Total 240 ml Balance 240 ml Intake Oral 240 ml # Voids 2 Laboratory Labs Laboratory Tests Test 07/08/21 08:05 Total Bilirubin 0.4 mg/dL (0.2-1.0) Direct Bilirubin 0.1 mg/dL (0.0-0.2) Aspartate Amino Transf (AST/SGOT) 73 U/L (15-37) Alanine Aminotransferase (ALT/SGPT) 143 U/L (14-59) Alkaline Phosphatase 197 U/L (46-116) Total Protein 7.9 g/dL (6.4-8.2) Albumin 3.3 g/dL (3.4-5.0) Physical Exam HEENT: Neck Supple W Full Motion Chest: Symmetric LUNGS: Other (diffuse faint wheeze) Heart: S1S2, RRR (SR) Abdomen: Soft N/T Extremities: No Calf Tenderness Neurology: alert, oriented, follow commands Assessment Assessment 1. Chest pain: none further, trops nml, no acute EKG changes 2. HTN: now controlled 3. Transaminitis: possible hepatic steatosis vs r/t alpha 1antitrypsin def 4. Hx of alpha 1 antitrypsin def 5. Chronic respiratory failure with COPD: use intermittent O2 at home and at hs 6. Obesity 7. DLP: TG at 563 Recommendations 1. ASA. norvasc 2. Would not be able to start on fibrates nor statin current transaminitis and issues with alpha 1 antitrypsin def. Options are starting vascepa and PCSK9i such as praluent or repatha 3. Outpt stress test 4. Follow up with Dr. Guillen on August 19 1:45 PM 5. dietitian consult Justicifation of Admission Dx: Justifications for Admission: Justification of Admission Dx: N/A LAZARUS GUILLEN MD 07/08/211927: CARDIO Progress Notes Plan Plan The patient was seen and interviewed as well as examined at the bedside. The chart was reviewed. The case was discussed. Agree with the plan of care. NATHALIA RUANO TRACK HOE OPERATOR Jul 08, 2021 11:10 LAZARUS GUILLEN MD Jul 08, 2021 19:28
[2021-07-09 03:00] VITALS: BP 102/63
[2021-07-09] MEDS: ALBUTEROL SULFATE 2.5 MG/3 ML NEBU. NEB SCH ×4 (06:00→11:07)
[2021-07-09 07:00] VITALS: BP 115/66
--- NOTE | 2021-07-09 07:17 | PDOC ---
PROGRESS NOTES Date of Service: DATE: 07/09/21 TIME: 07:17 Subjective Subjective Denied any chest pain or shortness of breath Objective Objective Vital Signs Date Time Temp Pulse Resp B/P (MAP) Pulse Ox O2 Delivery O2 Flow Rate FiO2 07/09/21 03:00 98.6 86 16 102/63 (76) 97 98.6 07/08/21 20:00 Nasal Cannula 3.0 Intake and Output 07/09/21 07:00 Intake Total 600 ml Balance 600 ml Intake Oral 600 ml # Voids 2 Physical Exam Abdomen: Soft, No tenderness, Other (protuberant) Heart: Regular rate (SR), Normal S1, Normal S2, No murmurs Extremities: No cyanosis, No edema General: Alert, Oriented X3, Cooperative, No acute distress HEENT: Atraumatic, Mucous membr. moist/pink Lungs: Other (diminished) MUSCULOSKELETAL: Osteoarthritic changes both hands Neuro: Normal speech, Sensation intact Psych/Mental Status: Mental status NL, Other (anxious) Skin: No breakdown, No significant lesion Assessment Assessment 1. Chest pain: none further, trops nml, no acute EKG changes 2. HTN: now controlled 3. Transaminitis: possible hepatic steatosis vs r/t alpha 1antitrypsin def 4. Hx of alpha 1 antitrypsin def 5. Chronic respiratory failure with COPD: use intermittent O2 at home and at hs 6. Obesity 7. DLP: TG at 563 Recommendations 1. ASA. norvasc 2. Would not be able to start on fibrates nor statin current transaminitis and issues with alpha 1 antitrypsin def. Options are starting vascepa and PCSK9i such as praluent or repatha 3. Outpt stress test 4. Follow up with Dr. Alvarez on August 19 1:45 PM Plan Plan of Care Problems Medical Problems: (1) Chest pain Status: Acute (2) Elevated blood pressure reading Status: Acute Comment Review of Relevant I have reviewed the following items zahida (where applicable) has been applied. Labs Laboratory Tests Test 07/08/21 08:05 Total Bilirubin 0.4 mg/dL (0.2-1.0) Direct Bilirubin 0.1 mg/dL (0.0-0.2) Aspartate Amino Transf (AST/SGOT) 73 U/L (15-37) Alanine Aminotransferase (ALT/SGPT) 143 U/L (14-59) Alkaline Phosphatase 197 U/L (46-116) Total Protein 7.9 g/dL (6.4-8.2) Albumin 3.3 g/dL (3.4-5.0) Medications Current Medications Amlodipine Besylate (Norvasc) 2.5 mg DAILY PO Last administered on 07/08/21at 09:15; Start 07/08/21 at 09:30 Amlodipine Besylate (Norvasc) 5 mg DAILY PO ; Start 07/08/21 at 09:00; Stop 07/08/21 at 09:03; Status DC Polyethylene Glycol (miraLAX PACKET) 17 gm DAILY PO Last administered on 07/08/21at 09:08; Start 07/08/21 at 09:00 Vitals/I & O Vital Sign - Last 24 Hours 07/08/21 07/08/21 07/08/21 07/08/21 07:18 08:00 09:15 11:00 Temp 98.9 98.9 Pulse 97 94 Resp 18 B/P (MAP) 119/78 91/59 (70) Pulse Ox 98 96 O2 Delivery Nasal Cannula Nasal Cannula O2 Flow Rate 3.0 3.0 07/08/21 07/08/21 07/08/21 07/08/21 11:10 11:11 15:00 15:17 Temp 98.9 98.9 Pulse 81 Resp 18 B/P (MAP) 103/63 (76) 113/64 (80) Pulse Ox 96 97 96 O2 Delivery Nasal Cannula Nasal Cannula O2 Flow Rate 3.0 3.0 07/08/21 07/08/21 07/08/21 07/08/21 15:35 16:16 17:55 19:00 Temp 97.9 97.9 Pulse 93 Resp 16 B/P (MAP) 134/79 (97) Pulse Ox 96 96 95 92 O2 Delivery Nasal Cannula Nasal Cannula Nasal Cannula O2 Flow Rate 3.0 3.0 3.0 07/08/21 07/08/21 07/09/21 20:00 23:00 03:00 Temp 98.0 98.6 98.0 98.6 Pulse 83 86 Resp 20 16 B/P (MAP) 106/68 (81) 102/63 (76) Pulse Ox 96 97 O2 Delivery Nasal Cannula O2 Flow Rate 3.0 Intake and Output 07/08/21 07/08/21 07/09/21 15:00 23:00 07:00 Intake Total 200 ml 400 ml Balance 200 ml 400 ml JULIUS VELASCO MD Jul 09, 2021 07:17
[2021-07-09] MEDS: IPRATRPIUM/ALBUTEROL 0.5/2.5MG 3 ML NEBU. NEB SCH ×2 (07:29→11:08)
[2021-07-09] MEDS: BUDESONIDE 0.5 MG/2 ML NEBU. NEB SCH (07:30)
[2021-07-09] MEDS: NICOTINE 21MG PATCH. TD SCH (09:01)
[2021-07-09] MEDS: POLYETHYLENE GLYCOL 3350 17 GM PACKET. PO SCH (09:01)
[2021-07-09] MEDS: GABAPENTIN 400 MG CAPSULE. PO SCH ×2 (09:02→13:55)
[2021-07-09] MEDS: ASPIRIN ENTERIC COATED 81 MG TABLET.DR. PO SCH (09:02)
[2021-07-09] MEDS: CITALOPRAM 20 MG TABLET. PO SCH (09:02)
[2021-07-09] MEDS: CYCLOBENZAPRINE 10 MG TABLET. PO SCH ×2 (09:03→13:55)
[2021-07-09] MEDS: MELOXICAM 7.5 MG TABLET PO SCH (09:03)
[2021-07-09] MEDS: SENNOSIDES/DOCUSATE 8.6/50MG TABLET. PO SCH (09:03)
[2021-07-09] MEDS: FAMOTIDINE 20 MG TABLET. PO SCH (09:04)
[2021-07-09 11:00] VITALS: BP 108/60
--- NOTE | 2021-07-09 12:44 | PDOC ---
Provider Note Date of Service: DATE: 07/09/21 TIME: 12:44 Provider Note [id number] Justifications for Admission Other Justification JACKI RAMON MD Jul 09, 2021 12:44
--- NOTE | 2021-07-09 14:28 | NUR ---
Discharge Note: YUDELKA CHOI Discharge instructions and discharge home medications reviewed with Patient and a copy given. All questions have been answered and understanding verbalized. The following instructions and handouts were given: worsening symptoms, follow up information, and medication reconciliation. Discontinued lines and drains: IV discontinued from LAC, telemetry removed, and skin intact. Patient discharged to home with self care via private transportation.
--- NOTE | 2021-07-11 05:28 | DS ---
DATE OF DISCHARGE: 07/09/2021 HOSPITAL SUMMARY: A 56-year-old white female with chronic tobacco abuse, COPD, on oxygen as well as alpha-1 antitrypsin deficiency, came in with atypical chest pain. CBC was normal. Sed rate of 54. Chemistry profile unremarkable except for elevated transaminases, which are chronic for her and felt to be due to fatty liver disease. Cholesterol was high at 354, HDL 33, LDL not calculated. TSH was very low at 0.014, free T3 was normal at 1.9 and free T4 is pending at this time. She had no changes in the troponin. Her chest x-ray was clear as well as her echocardiogram and it was felt she could be followed as an outpatient, it is likely noncardiac in origin despite her very high risk factors. FINAL DIAGNOSES: 1. Chest pain, etiology undetermined. 2. Transaminitis, likely secondary to nonalcoholic fatty liver disease. 3. Chronic obstructive pulmonary disease, oxygen dependent. 4. Hyperthyroidism, suspect subclinical. OPERATIONS, PROCEDURES AND COMPLICATIONS: None. CONSULTATION: Dr. Lopez. DISPOSITION: Home meds remain the same. We will follow her free T4 results and treat accordingly if needed. She will see Dr. Lopez as an outpatient for cardiac testing and discussed the use of injectable cholesterol medicines with her Pulmonary and Pathology doctors at [facility]. Prognosis is guarded. NAHUN/DARRYN DR: NAHUN/maame TID: [id number]
== END 2021-07-09 14:00 | disposition home or self-care (01) | DRG 313 ==
LOC: ER 17:26 → 2 NORTH 21:18
PROVIDERS: ADMIT Family Medicine; ATTEND Family Medicine
DX: R07.9 Chest pain, unspecified (principal); J96.10 Chronic respiratory failure, unspecified whether with hypoxia or hypercapnia; I12.9 Hypertensive chronic kidney disease with stage 1 through stage 4 chronic kidney disease, or unspecified chronic kidney disease; E05.80 Other thyrotoxicosis without thyrotoxic crisis or storm; E66.9 Obesity, unspecified; Z68.35 Body mass index [BMI] 35.0-35.9, adult; E78.00 Pure hypercholesterolemia, unspecified; E78.5 Hyperlipidemia, unspecified; E88.01 Alpha-1-antitrypsin deficiency; F17.210 Nicotine dependence, cigarettes, uncomplicated; F41.9 Anxiety disorder, unspecified; G62.9 Polyneuropathy, unspecified; J44.9 Chronic obstructive pulmonary disease, unspecified; K76.0 Fatty (change of) liver, not elsewhere classified; M79.7 Fibromyalgia; N18.9 Chronic kidney disease, unspecified; G89.29 Other chronic pain; K21.9 Gastro-esophageal reflux disease without esophagitis; M19.90 Unspecified osteoarthritis, unspecified site; R79.89 Other specified abnormal findings of blood chemistry; Z80.0 Family history of malignant neoplasm of digestive organs; Z82.49 Family history of ischemic heart disease and other diseases of the circulatory system; Z83.3 Family history of diabetes mellitus; Z85.528 Personal history of other malignant neoplasm of kidney; Z90.49 Acquired absence of other specified parts of digestive tract; Z90.5 Acquired absence of kidney; Z99.81 Dependence on supplemental oxygen
CPT/HCPCS: 36415; 71045; 80053; 80061; 80076; 80307; 81001; 83735; 83880; 84443; 84481; 84484; 85025; 85651; 93005; 93306; 94640; 96374; 96375; J2270; J2405; 99285-25; C8929; G0378; J7613; J7626